=== PATIENT | male | born 1965 | race Caucasian/White ===

== ENCOUNTER → 2016-10-13 | Emergency (ER) | payer MEDICARE ==
[2015-11-17 23:31] VITALS: BMI 21.6
[~2016-10-13] MED LIST: AMBIEN10 MG PO; ATIVAN1 MG PO; CELEXA40 MG PO; GEODON20 MG PO; GEODON40 MG PO; GEODON60 MG PO; HALDOL5 MG GT; HALDOL5 MG PO; METOPROLOL TART50 MG PO; MOBIC7.5 MG PO; NAPROSYN500 MG; NAPROSYN500 MG PO; PROAIR HFA8.5 GM INH; RESTORIL15 MG PO; TEGRETOL200 MG PO; TENORMIN25 MG PO; TENORMIN50 MG; TENORMIN50 MG PO; THERMOTABS 1 GM1 GM PO; VENTOLIN HFA18 GM INH
[2016-10-13 14:03] LABS: APPEARANCE CLEAR (CLEAR); BACTERIA FEW /hpf (NONE SEEN); BILIRUBIN NEGATIVE (NEGATIVE); COLOR STRAW (YELLOW); EPITHELIAL CELLS OCC /hpf (0-5); GLUCOSE 50 mg/dL (NEGATIVE); KETONE NEGATIVE (NEGATIVE); LEUKOCYTE ESTERASE NEGATIVE (NEGATIVE); NITRITE NEGATIVE (NEGATIVE); PROTEIN NEGATIVE (NEGATIVE); RED CELLS - URINE OCC /hpf (0-5); UROBILINOGEN NORMAL (NORMAL); WHITE CELLS - URINE OCC /hpf (0-5)
[2016-10-13 14:06] LABS: UDS - AMPHET NEGATIVE QUAL (NEGATIVE); UDS - BARB NEGATIVE QUAL (NEGATIVE); UDS - BENZO NEGATIVE QUAL (NEGATIVE); UDS - COCAINE NEGATIVE QUAL (NEGATIVE); UDS - METH NEGATIVE QUAL (NEGATIVE); UDS - OPIATE NEGATIVE QUAL (NEGATIVE); UDS - PCP NEGATIVE QUAL (NEGATIVE); UDS - THC NEGATIVE QUAL (NEGATIVE)
[2016-10-13 14:20] LABS: BASOPHILS 0.4 % (0-2); EOSINOPHILS 3.5 % (0-7); HEMATOCRIT 36.8 % (42.0-54.0); HEMOGLOBIN 12.6 g/dL (13.5-17.5); IMMATURE GRANULOCYTES 0.2 % (0-5); MCH 32.2 pg (26.0-34.0); MCHC 34.2 g/dL (31.0-37.0); MCV 94.1 fL (80.0-100.0); MONOCYTES 8.1 % (2-11); NEUTROPHILS 42.8 % (40-80); RBC 3.91 10x6/uL (4.20-6.10); RDW 14.6 % (11.5-14.5); WBC 5.4 10x3/uL (4.8-10.8)
[2016-10-13 14:21] LABS: PLATELET COUNT 193 10x3/uL (130-400)
[2016-10-13 14:38] LABS: ALBUMIN 3.4 g/dL (3.4-5.0); ALKALINE PHOSPHATASE 70 U/L (46-116); ALT (SGPT) 19 U/L (10-68); BILIRUBIN - TOTAL 0.35 mg/dL (0.2-1.3); CALC OSMOLALITY 262 mosm/kg (275-300); CALCIUM 8.4 mg/dL (8.5-10.1); CARBON DIOXIDE 27.6 mmol/L (21.0-32.0); CHLORIDE - SERUM 98 mmol/L (98-107); CREATININE - SERUM 0.9 mg/dL (0.6-1.3); GLUCOSE 86 mg/dL (74-106); POTASSIUM - SERUM 3.7 mmol/L (3.5-5.1); PROTEIN - SERUM 6.8 g/dL (6.4-8.2); SODIUM 132 mmol/L (136-145); UREA NITROGEN 9 mg/dL (7-18); eGFR NON AFRICAN AMERICAN > 90 mL/min (90-120)
[2016-10-13 14:43] LABS: TROPONIN-I < 0.017 ng/mL (0.000-0.060)
== END ==
LOC: D.ER 12:11
PROVIDERS: Emergency Medicine
DX: M54.5 Low back pain (principal); I10 Essential (primary) hypertension; E87.1 Hypo-osmolality and hyponatremia; F10.10 Alcohol abuse, uncomplicated

== ENCOUNTER 2016-12-16 10:07 | Observation (INO) | payer MEDICARE ==
[~2016-12-16] VITALS: Ht 165.1 cm; Wt 55.8 kg
[2016-12-16 10:54] LABS: BASOPHILS 1.1 % (0-2); EOSINOPHILS 0.2 % (0-7); HEMATOCRIT 37.4 % (42.0-54.0); HEMOGLOBIN 13.1 g/dL (13.5-17.5); IMMATURE GRANULOCYTES 0.2 % (0-5); LYMPHOCYTES 23.5 % (15-50); MCV 91.4 fL (80.0-100.0); MEAN PLATELET VOLUME 8.8 fL (7.4-10.4); MONOCYTES 6.3 % (2-11); NEUTROPHILS 68.7 % (40-80); RBC 4.09 10x6/uL (4.20-6.10); RDW 13.2 % (11.5-14.5); WBC 5.4 10x3/uL (4.8-10.8)
[2016-12-16 10:55] LABS: PLATELET COUNT 484 10x3/uL (130-400)
[2016-12-16 11:07] LABS: ALBUMIN 3.4 g/dL (3.4-5.0); ALKALINE PHOSPHATASE 91 U/L (46-116); ALT (SGPT) 49 U/L (10-68); BILIRUBIN - TOTAL 0.27 mg/dL (0.2-1.3); CALCIUM 8.7 mg/dL (8.5-10.1); CARBON DIOXIDE 25.6 mmol/L (21.0-32.0); CHLORIDE - SERUM 92 mmol/L (98-107); CREATININE - SERUM 0.9 mg/dL (0.6-1.3); PROTEIN - SERUM 7.5 g/dL (6.4-8.2); SODIUM 129 mmol/L (136-145); UREA NITROGEN 6 mg/dL (7-18); eGFR NON AFRICAN AMERICAN > 90 mL/min (90-120)
[2016-12-16 11:09] LABS: AMYLASE - SERUM 58 U/L (25-115); CALC OSMOLALITY 258 mosm/kg (275-300); GLUCOSE 136 mg/dL (74-106); LIPASE 513 U/L (73-393)
[2016-12-16 11:23] LABS: APPEARANCE CLEAR (CLEAR); BILIRUBIN NEGATIVE (NEGATIVE); COLOR YELLOW (YELLOW); GLUCOSE NEGATIVE (NEGATIVE); KETONE NEGATIVE (NEGATIVE); LEUKOCYTE ESTERASE NEGATIVE (NEGATIVE); NITRITE NEGATIVE (NEGATIVE); PROTEIN NEGATIVE (NEGATIVE); UROBILINOGEN NORMAL (NORMAL)
--- NOTE | 2016-12-16 13:51 | NUR ---
RECEIVED REPORT FROM JON IN ER AT THIS TIME. JON WILL BRING PATIENT TO UNIT SOON.
--- NOTE | 2016-12-16 14:17 | NUR ---
PATIENT ARRIVED TO ROOM 2103 VIA WHEELCHAIR FROM ED AT THIS TIME. AMBULATORY. ABLE TO AMBULATE FROM CHAIR TO BED WITHOUT DIFFICULTY. PATIENT VERBAL AT THIS TIME. CALL LIGHT PLACED WITHIN REACH. PATIENT IS INTOXICATED. 22 GAUGE TO RIGHT WRIST. IV FLUIDS INFUSING ORDERED AT THIS TIME. NO DISTRESS.
[2016-12-16 16:46] VITALS: BP 154/94; BMI 18.6
--- NOTE | 2016-12-16 18:31 | NUR ---
RESTING IN BED. AT BEDSIDE FOR EXAMINATION. THIS FOOD SERVICE TEAM MEMBER ASSISTED WITH EXAMINATION. IV FLUIDS INFUSING ORDERED. NO DISTRESS. CALL LIGHT WITHIN REACH.
--- NOTE | 2016-12-16 19:49 | NUR ---
PT RESTING IN BED. NS INFUSING TO RIGHT WRIST AT 250. PT DENIES ANY NEEDS. NO S/S OF DISTRESS. WILL CONTINUE TO MONITOR
[2016-12-16 20:00] VITALS: BP 127/86
--- NOTE | 2016-12-16 21:32 | NUR ---
1900 MEDS NOT GIVEN BECAUSE THEY ARE NOT VERIFIED BY PHARMACY. CHANDRIKA NOTIFIED. PT IN ROOM SLEEPING. RESPIRATIONS EVEN AND UNLABORED. NO S/S OF DISTRESS. WILL CONTINUE TO MONITOR
--- NOTE | 2016-12-17 00:59 | NUR ---
PT IN BED WATCHING TV. DENIES ANY NEEDS AT THIS TIME. NO S/S OF DISTRESS. WILL CONTINUE TO MONITOR
[2016-12-17 04:00] VITALS: BP 118/73
--- NOTE | 2016-12-17 05:53 | NUR ---
PT ASLEEP. RESPIRATIONS EVEN AND UNLABORED. NO S/S OF DISTRESS WILL CONTINUE TO MONITOR
[2016-12-17 06:45] LABS: BASOPHILS 0.7 % (0-2); EOSINOPHILS 1.6 % (0-7); HEMATOCRIT 36.1 % (42.0-54.0); HEMOGLOBIN 12.2 g/dL (13.5-17.5); IMMATURE GRANULOCYTES 0.2 % (0-5); LYMPHOCYTES 28.7 % (15-50); MCH 31.9 pg (26.0-34.0); MCHC 33.8 g/dL (31.0-37.0); MEAN PLATELET VOLUME 9.6 fL (7.4-10.4); MONOCYTES 6.8 % (2-11); RBC 3.82 10x6/uL (4.20-6.10); RDW 13.9 % (11.5-14.5); WBC 5.5 10x3/uL (4.8-10.8)
[2016-12-17 06:46] LABS: MCV 94.5 fL (80.0-100.0); PLATELET COUNT 260 10x3/uL (130-400)
[2016-12-17 06:56] LABS: ALBUMIN 2.6 g/dL (3.4-5.0); ALKALINE PHOSPHATASE 70 U/L (46-116); ALT (SGPT) 40 U/L (10-68); AMYLASE - SERUM 59 U/L (25-115); BILIRUBIN - TOTAL 0.39 mg/dL (0.2-1.3); CALCIUM 7.9 mg/dL (8.5-10.1); CARBON DIOXIDE 25.5 mmol/L (21.0-32.0); CHLORIDE - SERUM 103 mmol/L (98-107); CREATININE - SERUM 0.7 mg/dL (0.6-1.3); LIPASE 579 U/L (73-393); POTASSIUM - SERUM 4.5 mmol/L (3.5-5.1); SODIUM 137 mmol/L (136-145); eGFR NON AFRICAN AMERICAN > 90 mL/min (90-120)
[2016-12-17 07:00] LABS: CALC OSMOLALITY 268 mosm/kg (275-300); GLUCOSE 62 mg/dL (74-106); UREA NITROGEN 3 mg/dL (7-18)
--- NOTE | 2016-12-17 07:11 | NUR ---
RECEIVED REPORT. PATIENT SITTING UP IN BED. DENIES ANY FEELINGS OF BEING JITTERY, ETC FROM LAB GLUCOSE OF 62. PATIENT GIVEN APPLE JUICE AND SOME PUDDING AT THIS TIME. IV FLUIDS INFUSING ORDERED. CALL LIGHT WITHIN REACH. NO DISTRESS.
[2016-12-17 08:00] VITALS: BP 145/70
[2016-12-17 12:00] VITALS: BP 146/63
--- NOTE | 2016-12-17 12:57 | NUR ---
RESTING IN BED WITH ATTENTION TOWARD TELEVISION. IV FLUIDS INFUSING ORDERED. CALL LIGHT WITHIN REACH. PATIENT QUESTIONING WHEN HE WILL GET TO GO HOME. INFORMED PATIENT THIS HYDRAULIC DREDGE OPERATOR DOES NOT HAVE THE ANSWER TO THAT QUESTION AND WE WILL SEE WHAT SAYS WHEN SHE COMES TODAY FOR ROUNDS. NO DISTRESS.
--- NOTE | 2016-12-17 14:25 | NUR ---
SODA AND PUDDING PROVIDED UPON REQUEST AT THIS TIME. RESTING IN BED. NO DISTRESS.
[2016-12-17 16:00] VITALS: BP 126/83
--- NOTE | 2016-12-17 19:20 | NUR ---
PT SLEEPING. RESPIRATIONS EVEN AND UNLABORED, NO S/S OF DISTRESS, WILL CONTINUE TO MONITOR
[2016-12-17 22:41] VITALS: BP 135/73
--- NOTE | 2016-12-18 02:24 | NUR ---
PT C/O FLUIDS INFUSING 250ML/HR DECREASED TO 100ML/HR. IV PUMP WAKING HIM UP BECAUSE FLUIDS INFUSE SO FAST. NO OTHER NEEDS. NO S/S OF DISTRESS. WILL CONTINUE TO MONITOR
[2016-12-18 02:51] VITALS: BP 140/85
--- NOTE | 2016-12-18 04:59 | NUR ---
PT ASLEEP IN BED. RESPIRATIONS EVEN AND UNLABORED. NO S/S OF DISTRESS WILL CONTINUE TO MONITOR
[2016-12-18 05:27] VITALS: BP 147/82
[2016-12-18 05:52] LABS: ALBUMIN 2.7 g/dL (3.4-5.0); ALKALINE PHOSPHATASE 71 U/L (46-116); ALT (SGPT) 39 U/L (10-68); CALCIUM 8.2 mg/dL (8.5-10.1); CARBON DIOXIDE 29.4 mmol/L (21.0-32.0); CHLORIDE - SERUM 98 mmol/L (98-107); CREATININE - SERUM 0.6 mg/dL (0.6-1.3); GLUCOSE 76 mg/dL (74-106); LIPASE 579 U/L (73-393); PROTEIN - SERUM 6.2 g/dL (6.4-8.2); SODIUM 134 mmol/L (136-145); eGFR NON AFRICAN AMERICAN > 90 mL/min (90-120)
[2016-12-18 05:59] LABS: CALC OSMOLALITY 262 mosm/kg (275-300); POTASSIUM - SERUM 3.6 mmol/L (3.5-5.1); UREA NITROGEN 2 mg/dL (7-18)
--- NOTE | 2016-12-18 06:54 | NUR ---
PT C/O BEING NPO. ABD SCAN DONE THIS MORNING. WAITING ON RESULTS. NO S/S OF DISTRESS. PT RESTING IN BED. WILL CONTINUE TO MONITOR
[2016-12-18 08:00] VITALS: BP 142/81
--- NOTE | 2016-12-18 10:02 | NUR ---
REFUSED [facility] - UP AD VELASQUEZ
--- NOTE | 2016-12-18 10:47 | NUR ---
UP IN BED WATCHING TV - SOFT SNACKS GIVEN - DENIES ANY OTHER NEEDS
[2016-12-18 10:48] VITALS: Ht 165.1 cm; Wt 55.8 kg
[2016-12-18 12:00] VITALS: BP 131/66
--- NOTE | 2016-12-18 13:07 | NUR ---
RESTS IN BED WITH CALL LIGHT IN REACH. IV PATENT. WILL MONITOR NEEDS.
--- NOTE | 2016-12-18 14:13 | NUR ---
DR MCCONNELL APPROACHED WANTING TO TALK ABOUT PATIENT. SHE IS WANTING TO WORK ON DISCHARGE, BUT PATIENT NEEDS TO FOLLOW UP. SHE SAID THAT HE MISSED HIS POST COLECTOMY FOLLOW UP AND HE HAS NOT BEEN TAKING HIS MEDICAITONS. HE SAID IT WAS SOMETHING TO DO WITH THE INSURANCE. SHE WANTED ASSISTANCE WITH FINDING A PCP FOR HIM. PATIENT USE TO SEE DR BETTS. CALL [facility] PLACED TO [facility] TO SEE IF PATIENT HAD BEEN FIRED OR IF HE WAS ASSIGNED TO ANOTHER PHYSICIAN AND JUST NOT KEEPING APPOINTMENTS. THEY STATED HE WAS NOT FIRED, BUT HE HAS NOT HAD AN APPOINTMENT SINCE 2011 AND SINCE IT HAS BEEN OVER 3 YEARS, HE IS NO LONGER THEIR PATIENT AND THEY ARE NOT ACCEPTING NEW PATIENTS. CALLED AND SPOKE WITH SOFIA AT [facility] ([phone]), PER HIM, THE PATIENT HAS NOT HAD ANY MEDICATIONS FILLED WITH THEM SINCE 2016. AT THAT TIME, DR CRUZ PRESCRIBED NAPROXEN, TEGRETOL, AND ATENOLOL. DR MCCONNELL HAS REQUESTED THAT WE FOLLOW THE PATIENT AFTER DISCHARGE TO MAKE SURE HE KEEPS HIS APPOINTMENT (EXPLAINED THAT WE COULDN'T DO THAT), AND MAKE SURE HE HAS A PCP AND CAN GET HIS MEDICATIONS. CASSIA MCKENNA TOOK PATIENT THE INFORMATION FOR [facility] WHILE THIS CM WAS ON THE PHONE WITH THE PHARMACY. WILL FOLLOW.
[2016-12-18] MEDS ORDERED: NORVASC2.5 MG PO (15:24)
[2016-12-18] MEDS ORDERED: THIAMINE HCL50 MG PO ×2 (15:45→15:47)
[2016-12-18 16:00] VITALS: BP 135/82
--- NOTE | 2016-12-18 16:30 | NUR ---
D/C HOME PER WALKING
--- NOTE | 2016-12-18 16:50 | NUR ---
Patient Name: CONNIE LYON Admission Status: ER Accout number: [id number] Admission Date: 12-18-2016 : 1965 Admission Diagnosis: Attending: SUSANNE Current LOS: 1 Anticipated DC Date: 12-18-2016 Planned Disposition: Home Primary Insurance: MEDICARE A & B Discharge Planning Comments: * Is the patient Alert and Oriented? Yes 0 * How many steps to enter\exit or inside your home? 3-4 0 * PCP NONE 0 * Pharmacy [facility] 0 * Preadmission Environment Home Alone 0 * ADLs Independent 0 * Equipment None 0 * Other Equipment NO MEDICAL EQUIPMENT PROVIDER PREFERENCE 0 * List name and contact numbers for known caregivers / representatives who currently or will assist patient after discharge: PT REPORTS THERE IS ABSOLUTELY NO ONE TO CALL ON HIS BEHALF. 0 * Community resources currently utilized None 0 * Please name any agencies selected above. NONE 0 * Additional services required to return to the preadmission environment? No 0 * Can the patient safely return to the preadmission environment? Yes 0 * Has this patient been hospitalized within the prior 30 days at any hospital? Yes 0 CM RECEIVED ORDER TO FOLLOW UP WITH PT FOR DISCHARGE. CM MET WITH PT IN ROOM TO DISCUSS DISCHARGE PLANNING AND NEEDS. PT REPORTS LIVING AT HOME INDEPENDENTLY AND ALONE. PT HAS NO MEDICAL EQUIPMENT AND NO OUTSIDE SERVICES ASSISTING IN THE HOME. CM DISCUSSED AVAILABILITY OF HOME HEALTH, REHAB SERVICES AND MEDICAL EQUIPMENT. PT DENIES DISCHARGE NEEDS, REPORTS PLAN TO WALK HOME FOR DISCHARGE TODAY. IMPORTANT MESSAGE FROM MEDICARE PROVIDED AND EXPLAINED. PT REPORT DRINKING 4-5 32 OUNCE BEERS EACH DAY; PT DENIES NEED FOR REHAB OR ADDICTION SERVICES REPORTING HE WALKED OUT OF [facility] LAST YEAR AND SPENT 30 DAYS IN [facility] SO HE DID NOT HAVE TO GO. PT HAS NOT INTENTION TO STOP DRINKING BEER. PT USES SMOKELESS TOBACCO (DIP) AND REPORTS HE HAS NO PLAN TO STOP THAT EITHER. PT DENIES HAVING ANY ONE TO NOTIFY IN CASE OF EMERGENCY. CM PROVIDED BUS PASS TO GET HOME, PROVIDED AND DISCUSSED [facility] INFORMATION AND HOW TO GET APPOINTMENT FOR POSSIBLE PRIMARY CARE DOCTOR CONSIDERATION. PT REPORTED UNDERSTANDING, THANKED CM. High Speed Operator: Devin Sumner
== END 2016-12-18 17:58 | disposition home or self-care (01) ==
LOC: D.ER 10:07 → OBSVTIME 13:27 → D.M2 13:27
PROVIDERS: Family Medicine; ADMIT Family Medicine
DX: K85.20 Alcohol induced acute pancreatitis without necrosis or infection (principal); K86.0 Alcohol-induced chronic pancreatitis; C18.9 Malignant neoplasm of colon, unspecified; C77.2 Secondary and unspecified malignant neoplasm of intra-abdominal lymph nodes; E87.1 Hypo-osmolality and hyponatremia; F10.129 Alcohol abuse with intoxication, unspecified; I10 Essential (primary) hypertension; D47.3 Essential (hemorrhagic) thrombocythemia; F20.9 Schizophrenia, unspecified; K64.9 Unspecified hemorrhoids; K59.00 Constipation, unspecified; Y90.8 Blood alcohol level of 240 mg/100 ml or more; D64.9 Anemia, unspecified; E86.0 Dehydration; N13.30 Unspecified hydronephrosis; R18.8 Other ascites; Z91.19 Patient's noncompliance with other medical treatment and regimen; Z86.73 Personal history of transient ischemic attack (TIA), and cerebral infarction without residual deficits; Z72.0 Tobacco use

== ENCOUNTER 2017-02-09 11:43 | Emergency (ER) | payer MEDICARE ==
[2016-12-18 10:48] VITALS: BMI 20.4
[~2017-02-09 11:43] MED LIST changes: +NORVASC2.5 MG PO; +THIAMINE HCL50 MG PO
== END 2017-02-09 14:41 | disposition home or self-care (01) ==
LOC: D.ER 11:43
DX: C78.5 Secondary malignant neoplasm of large intestine and rectum (principal); R59.0 Localized enlarged lymph nodes; F10.21 Alcohol dependence, in remission; I10 Essential (primary) hypertension

== ENCOUNTER 2017-03-24 11:13 | Emergency (ER) | payer MEDICARE ==
[2016-12-18 10:48] VITALS: BMI 20.4
[2017-03-24 11:57] LABS: BASOPHILS 3.1 % (0-2); EOSINOPHILS 0.7 % (0-7); HEMATOCRIT 36.4 % (42.0-54.0); HEMOGLOBIN 12.6 g/dL (13.5-17.5); LYMPHOCYTES 34.6 % (15-50); MCH 31.3 pg (26.0-34.0); MCHC 34.6 g/dL (31.0-37.0); MCV 90.3 fL (80.0-100.0); MEAN PLATELET VOLUME 8.9 fL (7.4-10.4); MONOCYTES 10.2 % (2-11); NEUTROPHILS 51.4 % (40-80); PLATELET COUNT 246 10x3/uL (130-400); RBC 4.03 10x6/uL (4.20-6.10); RDW 14.5 % (11.5-14.5); WBC 4.2 10x3/uL (4.8-10.8)
[2017-03-24 12:07] LABS: APPEARANCE CLEAR (CLEAR); BILIRUBIN NEGATIVE (NEGATIVE); COLOR STRAW (YELLOW); GLUCOSE NEGATIVE (NEGATIVE); KETONE NEGATIVE (NEGATIVE); NITRITE NEGATIVE (NEGATIVE); PROTEIN NEGATIVE (NEGATIVE); SPECIFIC GRAVITY 1.005 (1.005-1.020); UROBILINOGEN NORMAL (NORMAL)
[2017-03-24 12:11] LABS: ALBUMIN 3.2 g/dL (3.4-5.0); ALKALINE PHOSPHATASE 147 U/L (46-116); ALT (SGPT) 97 U/L (10-68); BILIRUBIN - TOTAL 0.38 mg/dL (0.2-1.3); CALC OSMOLALITY 255 mosm/kg (275-300); CALCIUM 8.3 mg/dL (8.5-10.1); CARBON DIOXIDE 28.2 mmol/L (21.0-32.0); CHLORIDE - SERUM 92 mmol/L (98-107); CREATININE - SERUM 0.9 mg/dL (0.6-1.3); POTASSIUM - SERUM 4.3 mmol/L (3.5-5.1); PROTEIN - SERUM 7.3 g/dL (6.4-8.2); SODIUM 128 mmol/L (136-145); UREA NITROGEN 5 mg/dL (7-18); eGFR NON AFRICAN AMERICAN > 90 mL/min (90-120)
[2017-03-24 12:12] LABS: GLUCOSE 128 mg/dL (74-106)
[2017-03-24 12:12] LABS: UDS - AMPHET NEGATIVE QUAL (NEGATIVE); UDS - BARB NEGATIVE QUAL (NEGATIVE); UDS - BENZO NEGATIVE QUAL (NEGATIVE); UDS - COCAINE NEGATIVE QUAL (NEGATIVE); UDS - OPIATE NEGATIVE QUAL (NEGATIVE); UDS - PCP NEGATIVE QUAL (NEGATIVE); UDS - THC NEGATIVE QUAL (NEGATIVE)
== END 2017-03-24 22:00 | disposition home or self-care (01) ==
LOC: D.ER 11:13
PROVIDERS: Nurse Practitioner Family
DX: F10.129 Alcohol abuse with intoxication, unspecified (principal); F10.10 Alcohol abuse, uncomplicated; T50.905A Adverse effect of unspecified drugs, medicaments and biological substances, initial encounter; Y92.89 Other specified places as the place of occurrence of the external cause; W19.XXXA Unspecified fall, initial encounter; Y93.89 Activity, other specified; Y92.410 Unspecified street and highway as the place of occurrence of the external cause; Z85.038 Personal history of other malignant neoplasm of large intestine; F17.200 Nicotine dependence, unspecified, uncomplicated

== ENCOUNTER 2017-03-28 19:06 | Emergency (ER) | payer MEDICARE ==
[2016-12-18 10:48] VITALS: BMI 20.4
== END 2017-03-28 19:45 | disposition home or self-care (01) ==
LOC: D.ER 19:06
DX: S80.212A Abrasion, left knee, initial encounter (principal); X58.XXXA Exposure to other specified factors, initial encounter; Y93.89 Activity, other specified; Y92.029 Unspecified place in mobile home as the place of occurrence of the external cause; I10 Essential (primary) hypertension; F17.200 Nicotine dependence, unspecified, uncomplicated

== ENCOUNTER 2017-03-31 16:23 | Emergency (ER) | payer MEDICARE ==
[2016-12-18 10:48] VITALS: BMI 20.4
[2017-03-31 17:10] LABS: APPEARANCE CLEAR (CLEAR); BILIRUBIN NEGATIVE (NEGATIVE); COLOR YELLOW (YELLOW); GLUCOSE NEGATIVE (NEGATIVE); KETONE NEGATIVE (NEGATIVE); NITRITE NEGATIVE (NEGATIVE); PROTEIN NEGATIVE (NEGATIVE); UROBILINOGEN NORMAL (NORMAL)
== END 2017-03-31 18:31 | disposition home or self-care (01) ==
LOC: D.ER 16:23
PROVIDERS: Emergency Medicine
DX: R33.9 Retention of urine, unspecified (principal); I10 Essential (primary) hypertension; F17.200 Nicotine dependence, unspecified, uncomplicated

== ENCOUNTER 2017-04-11 18:02 | Emergency (ER) | payer MEDICARE ==
[2016-12-18 10:48] VITALS: BMI 20.4
== END 2017-04-11 19:50 | disposition home or self-care (01) ==
LOC: D.ER 18:02
DX: M25.561 Pain in right knee (principal); M25.461 Effusion, right knee; F17.200 Nicotine dependence, unspecified, uncomplicated

== ENCOUNTER 2017-05-01 16:44 | Emergency (ER) | payer MEDICARE ==
[2016-12-18 10:48] VITALS: BMI 20.4
== END 2017-05-01 19:51 | disposition home or self-care (01) ==
LOC: D.ER 16:44
DX: I10 Essential (primary) hypertension (principal); M25.561 Pain in right knee

== ENCOUNTER 2017-05-14 14:25 | Emergency (ER) | payer MEDICARE ==
[2016-12-18 10:48] VITALS: BMI 20.4
== END 2017-05-14 17:55 | disposition home or self-care (01) ==
LOC: D.ER 14:25
DX: M25.562 Pain in left knee (principal); M25.561 Pain in right knee; Z85.038 Personal history of other malignant neoplasm of large intestine; I10 Essential (primary) hypertension

== ENCOUNTER 2017-05-16 13:31 | Emergency (ER) | payer MEDICARE ==
[2016-12-18 10:48] VITALS: BMI 20.4
== END 2017-05-16 17:04 | disposition home or self-care (01) ==
LOC: D.ER 13:31
DX: Z76.5 Malingerer [conscious simulation] (principal); Z76.0 Encounter for issue of repeat prescription

== ENCOUNTER 2017-06-14 14:13 | Emergency (ER) | payer MEDICARE ==
[2016-12-18 10:48] VITALS: BMI 20.4
== END 2017-06-14 16:15 | disposition home or self-care (01) ==
LOC: D.ER 14:13
DX: M25.511 Pain in right shoulder (principal); Z76.5 Malingerer [conscious simulation]; M25.552 Pain in left hip; F17.200 Nicotine dependence, unspecified, uncomplicated

== ENCOUNTER 2017-07-12 14:27 | Emergency (ER) | payer MEDICARE ==
[2016-12-18 10:48] VITALS: BMI 20.4
== END 2017-07-12 16:52 | disposition home or self-care (01) ==
LOC: D.ER 14:27
DX: M25.561 Pain in right knee (principal); M17.11 Unilateral primary osteoarthritis, right knee; F17.200 Nicotine dependence, unspecified, uncomplicated

== ENCOUNTER 2017-07-26 15:55 | Emergency (ER) | payer MEDICARE ==
[2016-12-18 10:48] VITALS: BMI 20.4
[2017-07-26 17:02] LABS: UDS - AMPHET NEGATIVE QUAL (NEGATIVE); UDS - BARB NEGATIVE QUAL (NEGATIVE); UDS - BENZO POSITIVE QUAL (NEGATIVE); UDS - COCAINE NEGATIVE QUAL (NEGATIVE); UDS - OPIATE NEGATIVE QUAL (NEGATIVE); UDS - PCP NEGATIVE QUAL (NEGATIVE); UDS - THC NEGATIVE QUAL (NEGATIVE)
[2017-07-26 17:09] LABS: BASOPHILS 0.4 % (0-2); EOSINOPHILS 1.7 % (0-7); HEMATOCRIT 34.8 % (42.0-54.0); LYMPHOCYTES 33.3 % (15-50); MCH 32.5 pg (26.0-34.0); MCHC 34.5 g/dL (31.0-37.0); MCV 94.3 fL (80.0-100.0); MEAN PLATELET VOLUME 9.1 fL (7.4-10.4); MONOCYTES 10.3 % (2-11); NEUTROPHILS 54.3 % (40-80); PLATELET COUNT 270 10x3/uL (130-400); RBC 3.69 10x6/uL (4.20-6.10); RDW 13.4 % (11.5-14.5); WBC 5.3 10x3/uL (4.8-10.8)
[2017-07-26 17:25] LABS: APPEARANCE CLEAR (CLEAR); BILIRUBIN NEGATIVE (NEGATIVE); COLOR YELLOW (YELLOW); GLUCOSE NEGATIVE (NEGATIVE); KETONE NEGATIVE (NEGATIVE); NITRITE NEGATIVE (NEGATIVE); PROTEIN NEGATIVE (NEGATIVE); SPECIFIC GRAVITY 1.015 (1.005-1.020); UROBILINOGEN NORMAL (NORMAL)
[2017-07-26 17:31] LABS: ALBUMIN 3.5 g/dL (3.4-5.0); BILIRUBIN - TOTAL 0.23 mg/dL (0.2-1.3); CALCIUM 8.3 mg/dL (8.5-10.1); CARBON DIOXIDE 25.8 mmol/L (21.0-32.0); CREATININE - SERUM 1.1 mg/dL (0.6-1.3); POTASSIUM - SERUM 3.8 mmol/L (3.5-5.1); PROTEIN - SERUM 7.2 g/dL (6.4-8.2)
== END 2017-07-27 02:10 | disposition home or self-care (01) ==
LOC: D.ER 15:55
PROVIDERS: Emergency Medicine
DX: F10.10 Alcohol abuse, uncomplicated (principal); F10.129 Alcohol abuse with intoxication, unspecified; F17.200 Nicotine dependence, unspecified, uncomplicated; I10 Essential (primary) hypertension; Z86.59 Personal history of other mental and behavioral disorders

== ENCOUNTER 2017-08-13 15:20 | Emergency (ER) | payer MEDICARE ==
[2016-12-18 10:48] VITALS: BMI 20.4
[2017-08-13 15:46] LABS: UDS - AMPHET NEGATIVE QUAL (NEGATIVE); UDS - BARB NEGATIVE QUAL (NEGATIVE); UDS - BENZO NEGATIVE QUAL (NEGATIVE); UDS - COCAINE NEGATIVE QUAL (NEGATIVE); UDS - OPIATE NEGATIVE QUAL (NEGATIVE); UDS - PCP NEGATIVE QUAL (NEGATIVE); UDS - THC NEGATIVE QUAL (NEGATIVE)
[2017-08-13 15:49] LABS: BASOPHILS 0.1 % (0-2); EOSINOPHILS 0.6 % (0-7); HEMATOCRIT 32.5 % (42.0-54.0); HEMOGLOBIN 11.6 g/dL (13.5-17.5); IMMATURE GRANULOCYTES 0.3 % (0-5); LYMPHOCYTES 19.8 % (15-50); MCH 32.1 pg (26.0-34.0); MCHC 35.7 g/dL (31.0-37.0); MEAN PLATELET VOLUME 9.4 fL (7.4-10.4); MONOCYTES 19.1 % (2-11); NEUTROPHILS 60.1 % (40-80); RBC 3.61 10x6/uL (4.20-6.10); RDW 13.1 % (11.5-14.5); WBC 7.2 10x3/uL (4.8-10.8)
[2017-08-13 15:56] LABS: APPEARANCE CLEAR (CLEAR); BILIRUBIN NEGATIVE (NEGATIVE); COLOR YELLOW (YELLOW); GLUCOSE NEGATIVE (NEGATIVE); KETONE NEGATIVE (NEGATIVE); NITRITE NEGATIVE (NEGATIVE); PROTEIN NEGATIVE (NEGATIVE); UROBILINOGEN NORMAL (NORMAL)
[2017-08-13 15:57] LABS: PLATELET COUNT 164 10x3/uL (130-400)
[2017-08-13 16:03] LABS: ALKALINE PHOSPHATASE 94 U/L (46-116); ALT (SGPT) 43 U/L (10-68); BILIRUBIN - TOTAL 0.24 mg/dL (0.2-1.3); CALCIUM 8.5 mg/dL (8.5-10.1); CARBON DIOXIDE 25.2 mmol/L (21.0-32.0); CREATININE - SERUM 0.7 mg/dL (0.6-1.3); GLUCOSE 86 mg/dL (74-106); POTASSIUM - SERUM 3.8 mmol/L (3.5-5.1); PROTEIN - SERUM 7.1 g/dL (6.4-8.2); UREA NITROGEN 5 mg/dL (7-18); eGFR NON AFRICAN AMERICAN > 90 mL/min (90-120)
[2017-08-13 16:08] LABS: CALC OSMOLALITY 230 mosm/kg (275-300); CHLORIDE - SERUM 80 mmol/L (98-107); SODIUM 116 mmol/L (136-145)
[2017-08-13 21:43] LABS: ALBUMIN 2.7 g/dL (3.4-5.0); ALKALINE PHOSPHATASE 87 U/L (46-116); ALT (SGPT) 37 U/L (10-68); BILIRUBIN - TOTAL 0.21 mg/dL (0.2-1.3); CALCIUM 8.1 mg/dL (8.5-10.1); CARBON DIOXIDE 24.9 mmol/L (21.0-32.0); CHLORIDE - SERUM 86 mmol/L (98-107); POTASSIUM - SERUM 3.3 mmol/L (3.5-5.1); PROTEIN - SERUM 6.3 g/dL (6.4-8.2); SODIUM 121 mmol/L (136-145); UREA NITROGEN 4 mg/dL (7-18)
[2017-08-13 21:46] LABS: CALC OSMOLALITY 242 mosm/kg (275-300); CREATININE - SERUM 0.9 mg/dL (0.6-1.3); GLUCOSE 139 mg/dL (74-106); eGFR NON AFRICAN AMERICAN > 90 mL/min (90-120)
[2017-08-14 02:54] LABS: ALBUMIN 2.5 g/dL (3.4-5.0); ALKALINE PHOSPHATASE 76 U/L (46-116); ALT (SGPT) 38 U/L (10-68); CALCIUM 7.8 mg/dL (8.5-10.1); CARBON DIOXIDE 26.1 mmol/L (21.0-32.0); CHLORIDE - SERUM 94 mmol/L (98-107); GLUCOSE 92 mg/dL (74-106); PROTEIN - SERUM 5.9 g/dL (6.4-8.2); SODIUM 127 mmol/L (136-145); eGFR NON AFRICAN AMERICAN 83 mL/min (90-120)
[2017-08-14 02:58] LABS: CALC OSMOLALITY 252 mosm/kg (275-300); POTASSIUM - SERUM 4.5 mmol/L (3.5-5.1); UREA NITROGEN 6 mg/dL (7-18)
== END 2017-08-14 07:36 | disposition home or self-care (01) ==
LOC: D.ER 15:20
PROVIDERS: Emergency Medicine; Nurse Practitioner Family
DX: F10.10 Alcohol abuse, uncomplicated (principal); F10.129 Alcohol abuse with intoxication, unspecified; R45.850 Homicidal ideations

== ENCOUNTER 2017-08-23 15:28 | Emergency (ER) | payer MEDICARE ==
[2016-12-18 10:48] VITALS: BMI 20.4
[2017-08-23 16:50] LABS: BASOPHILS 0.7 % (0-2); EOSINOPHILS 1.4 % (0-7); HEMATOCRIT 35.9 % (42.0-54.0); HEMOGLOBIN 12.7 g/dL (13.5-17.5); IMMATURE GRANULOCYTES 0.2 % (0-5); LYMPHOCYTES 37.4 % (15-50); MCH 32.7 pg (26.0-34.0); MCHC 35.4 g/dL (31.0-37.0); MCV 92.5 fL (80.0-100.0); MEAN PLATELET VOLUME 8.7 fL (7.4-10.4); MONOCYTES 11.4 % (2-11); NEUTROPHILS 48.9 % (40-80); RBC 3.88 10x6/uL (4.20-6.10); RDW 13.3 % (11.5-14.5); WBC 5.7 10x3/uL (4.8-10.8)
[2017-08-23 16:53] LABS: PLATELET COUNT 416 10x3/uL (130-400)
[2017-08-23 16:56] LABS: ALBUMIN 3.9 g/dL (3.4-5.0); ALKALINE PHOSPHATASE 96 U/L (46-116); ALT (SGPT) 35 U/L (10-68); BILIRUBIN - TOTAL 0.28 mg/dL (0.2-1.3); CALC OSMOLALITY 244 mosm/kg (275-300); CALCIUM 9.1 mg/dL (8.5-10.1); CHLORIDE - SERUM 87 mmol/L (98-107); CREATININE - SERUM 0.9 mg/dL (0.6-1.3); GLUCOSE 85 mg/dL (74-106); POTASSIUM - SERUM 4.5 mmol/L (3.5-5.1); PROTEIN - SERUM 8.3 g/dL (6.4-8.2); SODIUM 121 mmol/L (136-145); UREA NITROGEN 18 mg/dL (7-18); eGFR NON AFRICAN AMERICAN > 90 mL/min (90-120)
== END 2017-08-23 23:27 | disposition home or self-care (01) ==
LOC: D.ER 15:28
PROVIDERS: Family Medicine
DX: E86.0 Dehydration (principal); F10.129 Alcohol abuse with intoxication, unspecified

== ENCOUNTER 2017-08-24 15:29 | Emergency (ER) | payer MEDICARE ==
[2016-12-18 10:48] VITALS: BMI 20.4
[2017-08-24 18:29] LABS: BASOPHILS 1.4 % (0-2); HEMATOCRIT 34.5 % (42.0-54.0); HEMOGLOBIN 12.1 g/dL (13.5-17.5); IMMATURE GRANULOCYTES 0.2 % (0-5); LYMPHOCYTES 43.3 % (15-50); MCH 32.1 pg (26.0-34.0); MCHC 35.1 g/dL (31.0-37.0); MCV 91.5 fL (80.0-100.0); MEAN PLATELET VOLUME 8.6 fL (7.4-10.4); MONOCYTES 11.6 % (2-11); NEUTROPHILS 41.5 % (40-80); PLATELET COUNT 356 10x3/uL (130-400); RBC 3.77 10x6/uL (4.20-6.10); RDW 13.1 % (11.5-14.5); WBC 5.6 10x3/uL (4.8-10.8)
[2017-08-24 18:53] LABS: APPEARANCE CLEAR (CLEAR); BILIRUBIN NEGATIVE (NEGATIVE); COLOR YELLOW (YELLOW); GLUCOSE NEGATIVE (NEGATIVE); KETONE NEGATIVE (NEGATIVE); NITRITE NEGATIVE (NEGATIVE); PH 5.5 (5.0-6.0); PROTEIN NEGATIVE (NEGATIVE); SPECIFIC GRAVITY 1.005 (1.005-1.020); UROBILINOGEN NORMAL (NORMAL)
[2017-08-24 19:04] LABS: UDS - AMPHET NEGATIVE QUAL (NEGATIVE); UDS - BARB NEGATIVE QUAL (NEGATIVE); UDS - BENZO NEGATIVE QUAL (NEGATIVE); UDS - COCAINE NEGATIVE QUAL (NEGATIVE); UDS - OPIATE NEGATIVE QUAL (NEGATIVE); UDS - PCP NEGATIVE QUAL (NEGATIVE); UDS - THC NEGATIVE QUAL (NEGATIVE)
[2017-08-24 19:05] LABS: ALBUMIN 3.7 g/dL (3.4-5.0); ALKALINE PHOSPHATASE 87 U/L (46-116); ALT (SGPT) 34 U/L (10-68); BILIRUBIN - TOTAL 0.48 mg/dL (0.2-1.3); CALC OSMOLALITY 245 mosm/kg (275-300); CALCIUM 9.1 mg/dL (8.5-10.1); CARBON DIOXIDE 26.2 mmol/L (21.0-32.0); CHLORIDE - SERUM 90 mmol/L (98-107); CREATININE - SERUM 0.9 mg/dL (0.6-1.3); GLUCOSE 80 mg/dL (74-106); POTASSIUM - SERUM 4.7 mmol/L (3.5-5.1); PROTEIN - SERUM 7.7 g/dL (6.4-8.2); SODIUM 122 mmol/L (136-145); UREA NITROGEN 15 mg/dL (7-18); eGFR NON AFRICAN AMERICAN > 90 mL/min (90-120)
== END 2017-08-25 07:28 | disposition short-term general hospital (02) ==
LOC: D.ER 15:29
PROVIDERS: Nurse Practitioner Family
DX: R45.851 Suicidal ideations (principal); R42 Dizziness and giddiness; F10.10 Alcohol abuse, uncomplicated; F17.200 Nicotine dependence, unspecified, uncomplicated

== ENCOUNTER 2017-11-06 11:14 | Emergency (ER) | payer MEDICARE ==
[~2017-11-06] VITALS: Ht 165.1 cm; Wt 59.1 kg
[2017-11-06 11:16] VITALS: Ht 165.1 cm; Wt 59.1 kg
[2017-11-06] MEDS ORDERED: HYDROCODONE-APA1 TAB (11:20)
[2017-11-06] MEDS ORDERED: SEROQUEL25 MG (11:20)
[2017-11-06 11:43] LABS: BASOPHILS 0.5 % (0-2); EOSINOPHILS 0.3 % (0-7); HEMATOCRIT 33.9 % (42.0-54.0); LYMPHOCYTES 29.3 % (15-50); MCH 32.5 pg (26.0-34.0); MCHC 35.4 g/dL (31.0-37.0); MCV 91.9 fL (80.0-100.0); MEAN PLATELET VOLUME 8.7 fL (7.4-10.4); MONOCYTES 8.2 % (2-11); NEUTROPHILS 61.7 % (40-80); PLATELET COUNT 208 10x3/uL (130-400); RBC 3.69 10x6/uL (4.20-6.10); RDW 14.4 % (11.5-14.5); WBC 3.9 10x3/uL (4.8-10.8)
[2017-11-06 12:11] LABS: ALBUMIN 3.6 g/dL (3.4-5.0); ALKALINE PHOSPHATASE 74 U/L (46-116); ALT (SGPT) 31 U/L (10-68); BILIRUBIN - TOTAL 0.69 mg/dL (0.2-1.3); CALC OSMOLALITY 251 mosm/kg (275-300); CALCIUM 8.5 mg/dL (8.5-10.1); CARBON DIOXIDE 26.3 mmol/L (21.0-32.0); CHLORIDE - SERUM 88 mmol/L (98-107); PROTEIN - SERUM 7.3 g/dL (6.4-8.2); SODIUM 126 mmol/L (136-145); UREA NITROGEN 5 mg/dL (7-18); eGFR NON AFRICAN AMERICAN 83 mL/min (90-120)
[2017-11-06 12:12] LABS: GLUCOSE 143 mg/dL (74-106)
[2017-11-06 12:22] LABS: CKMB 0.3 U/L (0.0-3.6); PRO BNP 29 pg/mL (0-125)
[2017-11-06 12:28] LABS: TROPONIN-I < 0.017 ng/mL (0.000-0.060)
[2017-11-06 14:09] LABS: APPEARANCE CLEAR (CLEAR); BILIRUBIN NEGATIVE (NEGATIVE); COLOR YELLOW (YELLOW); GLUCOSE NEGATIVE (NEGATIVE); KETONE NEGATIVE (NEGATIVE); NITRITE NEGATIVE (NEGATIVE); PROTEIN NEGATIVE (NEGATIVE); UROBILINOGEN NORMAL (NORMAL)
[2017-11-06 14:15] LABS: UDS - AMPHET NEGATIVE QUAL (NEGATIVE); UDS - BARB NEGATIVE QUAL (NEGATIVE); UDS - BENZO NEGATIVE QUAL (NEGATIVE); UDS - COCAINE NEGATIVE QUAL (NEGATIVE); UDS - OPIATE NEGATIVE QUAL (NEGATIVE); UDS - PCP NEGATIVE QUAL (NEGATIVE); UDS - THC NEGATIVE QUAL (NEGATIVE)
[2017-11-06] MEDS ORDERED: OMEPRAZOLE20 M1 PO (16:55)
[2017-11-06 17:17] VITALS: BP 111/75
== END 2017-11-06 17:17 | disposition home or self-care (01) ==
LOC: D.ER 11:14
PROVIDERS: Family Medicine
DX: R07.9 Chest pain, unspecified (principal); F10.10 Alcohol abuse, uncomplicated; K21.9 Gastro-esophageal reflux disease without esophagitis; E87.1 Hypo-osmolality and hyponatremia; R51 Headache; I10 Essential (primary) hypertension; Z86.59 Personal history of other mental and behavioral disorders; Z85.46 Personal history of malignant neoplasm of prostate; F17.200 Nicotine dependence, unspecified, uncomplicated

== ENCOUNTER 2017-11-07 20:55 | Emergency (ER) | payer MEDICARE ==
[2017-11-06 11:16] VITALS: Ht 165.1 cm; Wt 68.0 kg
[~2017-11-07] VITALS: Ht 165.1 cm; Wt 68.0 kg
[~2017-11-07 20:55] MED LIST changes: +HYDROCODONE-APA1 TAB; +OMEPRAZOLE20 M1 PO; +SEROQUEL25 MG
[2017-11-08 07:39] VITALS: BP 122/68
== END 2017-11-08 07:32 | disposition home or self-care (01) ==
LOC: D.ER 20:55
DX: F10.10 Alcohol abuse, uncomplicated (principal); E87.1 Hypo-osmolality and hyponatremia; M25.511 Pain in right shoulder; F17.200 Nicotine dependence, unspecified, uncomplicated

== ENCOUNTER 2017-11-08 15:42 | Emergency (ER) | payer MEDICARE ==
[~2017-11-08] VITALS: Ht 165.1 cm; Wt 68.2 kg
[2017-11-08 16:14] VITALS: Ht 165.1 cm; Wt 68.2 kg
[2017-11-08 17:57] LABS: APPEARANCE CLEAR (CLEAR); COLOR STRAW (YELLOW); SPECIFIC GRAVITY 1.005 (1.005-1.020)
[2017-11-08 17:58] LABS: BILIRUBIN NEGATIVE (NEGATIVE); GLUCOSE NEGATIVE (NEGATIVE); KETONE NEGATIVE (NEGATIVE); NITRITE NEGATIVE (NEGATIVE); PROTEIN NEGATIVE (NEGATIVE); UROBILINOGEN NORMAL (NORMAL)
[2017-11-08 18:18] LABS: BASOPHILS 0.5 % (0-2); HEMATOCRIT 31.9 % (42.0-54.0); HEMOGLOBIN 11.3 g/dL (13.5-17.5); LYMPHOCYTES 48.9 % (15-50); MCH 32.6 pg (26.0-34.0); MCHC 35.4 g/dL (31.0-37.0); MCV 91.9 fL (80.0-100.0); MONOCYTES 7.4 % (2-11); NEUTROPHILS 41.2 % (40-80); PLATELET COUNT 161 10x3/uL (130-400); RBC 3.47 10x6/uL (4.20-6.10); RDW 14.9 % (11.5-14.5); WBC 3.9 10x3/uL (4.8-10.8)
[2017-11-08 18:52] LABS: ALBUMIN 3.2 g/dL (3.4-5.0); ALKALINE PHOSPHATASE 60 U/L (46-116); ALT (SGPT) 24 U/L (10-68); BILIRUBIN - TOTAL 0.46 mg/dL (0.2-1.3); CALC OSMOLALITY 259 mosm/kg (275-300); CALCIUM 7.9 mg/dL (8.5-10.1); CARBON DIOXIDE 26.6 mmol/L (21.0-32.0); CHLORIDE - SERUM 96 mmol/L (98-107); CREATININE - SERUM 0.8 mg/dL (0.6-1.3); PROTEIN - SERUM 6.3 g/dL (6.4-8.2); SODIUM 131 mmol/L (136-145); UREA NITROGEN 3 mg/dL (7-18); eGFR NON AFRICAN AMERICAN > 90 mL/min (90-120)
[2017-11-08 18:56] LABS: GLUCOSE 92 mg/dL (74-106)
[2017-11-08 19:07] LABS: UDS - AMPHET NEGATIVE QUAL (NEGATIVE); UDS - BARB NEGATIVE QUAL (NEGATIVE); UDS - BENZO NEGATIVE QUAL (NEGATIVE); UDS - COCAINE NEGATIVE QUAL (NEGATIVE); UDS - OPIATE NEGATIVE QUAL (NEGATIVE); UDS - PCP NEGATIVE QUAL (NEGATIVE); UDS - THC NEGATIVE QUAL (NEGATIVE)
[2017-11-09 18:38] VITALS: BP 146/95
== END 2017-11-09 18:38 | disposition home or self-care (01) ==
LOC: D.ER 15:42
PROVIDERS: Family Medicine
DX: F10.129 Alcohol abuse with intoxication, unspecified (principal); E87.1 Hypo-osmolality and hyponatremia

== ENCOUNTER 2017-11-10 19:42 | Emergency (ER) | payer MEDICARE ==
[~2017-11-10] VITALS: Ht 165.1 cm; Wt 63.6 kg
[2017-11-10 19:58] VITALS: Ht 165.1 cm; Wt 63.6 kg
[2017-11-10 22:39] LABS: ALBUMIN 3.1 g/dL (3.4-5.0); ALKALINE PHOSPHATASE 64 U/L (46-116); ALT (SGPT) 24 U/L (10-68); CALC OSMOLALITY 254 mosm/kg (275-300); CALCIUM 7.8 mg/dL (8.5-10.1); CARBON DIOXIDE 25.9 mmol/L (21.0-32.0); CHLORIDE - SERUM 92 mmol/L (98-107); CREATININE - SERUM 0.7 mg/dL (0.6-1.3); GLUCOSE 81 mg/dL (74-106); POTASSIUM - SERUM 3.7 mmol/L (3.5-5.1); PROTEIN - SERUM 6.1 g/dL (6.4-8.2); SODIUM 129 mmol/L (136-145); UREA NITROGEN 3 mg/dL (7-18); eGFR NON AFRICAN AMERICAN > 90 mL/min (90-120)
[2017-11-11 11:05] VITALS: BP 160/84
== END 2017-11-11 15:23 | disposition home or self-care (01) ==
LOC: D.ER 19:42
PROVIDERS: Family Medicine
DX: F10.129 Alcohol abuse with intoxication, unspecified (principal); M54.5 Low back pain; M25.512 Pain in left shoulder; M25.511 Pain in right shoulder; F17.200 Nicotine dependence, unspecified, uncomplicated

== ENCOUNTER 2017-11-12 18:15 | Emergency (ER) | payer MEDICARE ==
[~2017-11-12] VITALS: Ht 165.1 cm; Wt 63.6 kg
[2017-11-12 18:18] VITALS: Ht 165.1 cm; Wt 63.6 kg
[2017-11-13 00:20] VITALS: BP 131/79
== END 2017-11-13 06:14 | disposition home or self-care (01) ==
LOC: D.ER 18:15
DX: S51.011A Laceration without foreign body of right elbow, initial encounter (principal); W26.9XXA Contact with unspecified sharp object(s), initial encounter; Y93.89 Activity, other specified; Y92.89 Other specified places as the place of occurrence of the external cause; F17.200 Nicotine dependence, unspecified, uncomplicated; I10 Essential (primary) hypertension; Z86.73 Personal history of transient ischemic attack (TIA), and cerebral infarction without residual deficits

== ENCOUNTER 2017-11-14 20:53 | Emergency (ER) | payer MEDICARE ==
[~2017-11-14] VITALS: Ht 165.1 cm; Wt 63.6 kg
[2017-11-14 20:56] VITALS: Ht 165.1 cm; Wt 63.6 kg
[2017-11-14 21:25] LABS: APPEARANCE CLEAR (CLEAR); BILIRUBIN NEGATIVE (NEGATIVE); COLOR YELLOW (YELLOW); GLUCOSE NEGATIVE (NEGATIVE); KETONE NEGATIVE (NEGATIVE); NITRITE NEGATIVE (NEGATIVE); PROTEIN NEGATIVE (NEGATIVE); UROBILINOGEN NORMAL (NORMAL)
[2017-11-14 21:39] LABS: UDS - AMPHET NEGATIVE QUAL (NEGATIVE); UDS - BARB NEGATIVE QUAL (NEGATIVE); UDS - BENZO NEGATIVE QUAL (NEGATIVE); UDS - COCAINE NEGATIVE QUAL (NEGATIVE); UDS - OPIATE NEGATIVE QUAL (NEGATIVE); UDS - PCP NEGATIVE QUAL (NEGATIVE); UDS - THC NEGATIVE QUAL (NEGATIVE)
[2017-11-14 21:51] LABS: BASOPHILS 0.2 % (0-2); EOSINOPHILS 0.9 % (0-7); HEMATOCRIT 32.2 % (42.0-54.0); HEMOGLOBIN 11.9 g/dL (13.5-17.5); IMMATURE GRANULOCYTES 0.2 % (0-5); LYMPHOCYTES 34.7 % (15-50); MCH 33.5 pg (26.0-34.0); MCV 90.7 fL (80.0-100.0); MEAN PLATELET VOLUME 8.6 fL (7.4-10.4); MONOCYTES 12.9 % (2-11); NEUTROPHILS 51.1 % (40-80); RBC 3.55 10x6/uL (4.20-6.10); RDW 15.2 % (11.5-14.5); WBC 4.6 10x3/uL (4.8-10.8)
[2017-11-14 21:52] LABS: PLATELET COUNT 231 10x3/uL (130-400)
[2017-11-14 21:56] LABS: ALBUMIN 3.5 g/dL (3.4-5.0); ALKALINE PHOSPHATASE 70 U/L (46-116); ALT (SGPT) 24 U/L (10-68); CALC OSMOLALITY 250 mosm/kg (275-300); CALCIUM 8.1 mg/dL (8.5-10.1); CARBON DIOXIDE 28.1 mmol/L (21.0-32.0); CHLORIDE - SERUM 90 mmol/L (98-107); CREATININE - SERUM 0.8 mg/dL (0.6-1.3); GLUCOSE 100 mg/dL (74-106); POTASSIUM - SERUM 3.8 mmol/L (3.5-5.1); PROTEIN - SERUM 7.1 g/dL (6.4-8.2); SODIUM 126 mmol/L (136-145); UREA NITROGEN 6 mg/dL (7-18); eGFR NON AFRICAN AMERICAN > 90 mL/min (90-120)
[2017-11-14 21:57] LABS: MAGNESIUM - SERUM 1.5 mg/dL (1.8-2.4)
[2017-11-15 13:45] VITALS: BP 132/74
== END 2017-11-15 13:48 | disposition home or self-care (01) ==
LOC: D.ER 20:53
PROVIDERS: Family Medicine
DX: F10.10 Alcohol abuse, uncomplicated (principal); Z76.5 Malingerer [conscious simulation]; R45.851 Suicidal ideations; F17.200 Nicotine dependence, unspecified, uncomplicated

== ENCOUNTER 2017-11-19 11:59 | Emergency (ER) | payer MEDICARE ==
[2017-11-19 12:12] VITALS: Ht 165.1 cm
[2017-11-19 13:33] LABS: BASOPHILS 0.5 % (0-2); EOSINOPHILS 0.5 % (0-7); HEMATOCRIT 34.2 % (42.0-54.0); HEMOGLOBIN 12.1 g/dL (13.5-17.5); IMMATURE GRANULOCYTES 0.2 % (0-5); LYMPHOCYTES 30.5 % (15-50); MCH 33.2 pg (26.0-34.0); MCHC 35.4 g/dL (31.0-37.0); MEAN PLATELET VOLUME 8.6 fL (7.4-10.4); MONOCYTES 13.2 % (2-11); NEUTROPHILS 55.1 % (40-80); PLATELET COUNT 224 10x3/uL (130-400); RBC 3.64 10x6/uL (4.20-6.10); RDW 15.9 % (11.5-14.5); WBC 4.1 10x3/uL (4.8-10.8)
[2017-11-19 13:48] LABS: APPEARANCE CLEAR (CLEAR); BILIRUBIN NEGATIVE (NEGATIVE); COLOR STRAW (YELLOW); GLUCOSE NEGATIVE (NEGATIVE); KETONE MODERATE mg/dL (NEGATIVE); NITRITE NEGATIVE (NEGATIVE); PROTEIN NEGATIVE (NEGATIVE); UROBILINOGEN NORMAL (NORMAL)
[2017-11-19 13:56] LABS: ALBUMIN 3.7 g/dL (3.4-5.0); ALKALINE PHOSPHATASE 83 U/L (46-116); ALT (SGPT) 50 U/L (10-68); BILIRUBIN - TOTAL 0.97 mg/dL (0.2-1.3); CALC OSMOLALITY 256 mosm/kg (275-300); CALCIUM 8.8 mg/dL (8.5-10.1); CARBON DIOXIDE 25.7 mmol/L (21.0-32.0); CHLORIDE - SERUM 89 mmol/L (98-107); POTASSIUM - SERUM 4.1 mmol/L (3.5-5.1); PROTEIN - SERUM 7.9 g/dL (6.4-8.2); SODIUM 127 mmol/L (136-145); UREA NITROGEN 9 mg/dL (7-18); eGFR NON AFRICAN AMERICAN 83 mL/min (90-120)
[2017-11-19 13:58] LABS: UDS - AMPHET NEGATIVE QUAL (NEGATIVE); UDS - BARB NEGATIVE QUAL (NEGATIVE); UDS - BENZO NEGATIVE QUAL (NEGATIVE); UDS - COCAINE NEGATIVE QUAL (NEGATIVE); UDS - OPIATE NEGATIVE QUAL (NEGATIVE); UDS - PCP NEGATIVE QUAL (NEGATIVE); UDS - THC NEGATIVE QUAL (NEGATIVE)
[2017-11-19 13:59] LABS: GLUCOSE 159 mg/dL (74-106)
[2017-11-19 14:04] LABS: THYROID STIMULATING HORMONE 0.82 uIU/mL (0.36-3.74)
[2017-11-20] MEDS ORDERED: SEROQUEL100 MG PO (03:17)
[2017-11-20] MEDS ORDERED: PROZAC10 MG PO (03:17)
[2017-11-20] MEDS ORDERED: TENORMIN25 MG PO (03:17)
[2017-11-20] MEDS ORDERED: TRAZODONE HCL50 MG PO (03:17)
[2017-11-20 03:30] VITALS: BP 110/68
== END 2017-11-20 03:30 | disposition home or self-care (01) ==
LOC: D.ER 11:59
PROVIDERS: Family Medicine
DX: F10.10 Alcohol abuse, uncomplicated (principal); F29 Unspecified psychosis not due to a substance or known physiological condition

== ENCOUNTER 2017-11-23 12:56 | Emergency (ER) | payer MEDICARE ==
[~2017-11-23 12:56] MED LIST changes: +PROZAC10 MG PO; +SEROQUEL100 MG PO; +TRAZODONE HCL50 MG PO
[2017-11-23 13:13] VITALS: Ht 165.1 cm
[2017-11-23 15:25] LABS: BASOPHILS 0.6 % (0-2); EOSINOPHILS 2.9 % (0-7); HEMATOCRIT 27.9 % (42.0-54.0); HEMOGLOBIN 9.6 g/dL (13.5-17.5); LYMPHOCYTES 47.9 % (15-50); MCH 33.2 pg (26.0-34.0); MCHC 34.4 g/dL (31.0-37.0); MCV 96.5 fL (80.0-100.0); MONOCYTES 7.1 % (2-11); NEUTROPHILS 41.5 % (40-80); RBC 2.89 10x6/uL (4.20-6.10); RDW 16.5 % (11.5-14.5); WBC 3.4 10x3/uL (4.8-10.8)
[2017-11-23 16:05] LABS: ACETAMINOPHEN 1.5 ug/mL (10.0-30.0); CALC OSMOLALITY 267 mosm/kg (275-300); CALCIUM 7.4 mg/dL (8.5-10.1); CARBON DIOXIDE 26.9 mmol/L (21.0-32.0); CHLORIDE - SERUM 101 mmol/L (98-107); POTASSIUM - SERUM 4.2 mmol/L (3.5-5.1); SODIUM 136 mmol/L (136-145); UREA NITROGEN 4 mg/dL (7-18); eGFR NON AFRICAN AMERICAN 83 mL/min (90-120)
[2017-11-23 16:06] LABS: PLATELET COUNT 160 10x3/uL (130-400)
[2017-11-23 16:13] LABS: GLUCOSE 85 mg/dL (74-106)
[2017-11-23 16:53] LABS: UDS - AMPHET NEGATIVE QUAL (NEGATIVE); UDS - BARB NEGATIVE QUAL (NEGATIVE); UDS - BENZO NEGATIVE QUAL (NEGATIVE); UDS - COCAINE NEGATIVE QUAL (NEGATIVE); UDS - OPIATE NEGATIVE QUAL (NEGATIVE); UDS - PCP NEGATIVE QUAL (NEGATIVE); UDS - THC NEGATIVE QUAL (NEGATIVE)
[2017-11-24 06:52] VITALS: BP 122/71
== END 2017-11-24 06:53 | disposition home or self-care (01) ==
LOC: D.ER 12:56
PROVIDERS: Emergency Medicine
DX: F10.129 Alcohol abuse with intoxication, unspecified (principal); F10.10 Alcohol abuse, uncomplicated

== ENCOUNTER 2018-01-03 15:18 | Emergency (ER) | payer MEDICARE ==
[2018-01-03 15:25] VITALS: Ht 165.1 cm
[2018-01-03 16:03] LABS: BASOPHILS 0.4 % (0-2); EOSINOPHILS 0.2 % (0-7); HEMOGLOBIN 12.3 g/dL (13.5-17.5); IMMATURE GRANULOCYTES 0.2 % (0-5); LYMPHOCYTES 28.7 % (15-50); MCH 33.3 pg (26.0-34.0); MCHC 36.2 g/dL (31.0-37.0); MCV 92.1 fL (80.0-100.0); MEAN PLATELET VOLUME 8.5 fL (7.4-10.4); MONOCYTES 6.4 % (2-11); NEUTROPHILS 64.1 % (40-80); RBC 3.69 10x6/uL (4.20-6.10); RDW 13.7 % (11.5-14.5); WBC 5.3 10x3/uL (4.8-10.8)
[2018-01-03 16:07] LABS: PLATELET COUNT 200 10x3/uL (130-400)
[2018-01-03 16:29] LABS: ALBUMIN 3.7 g/dL (3.4-5.0); ANION GAP 11.3 mmol/L (8-16); BILIRUBIN - TOTAL 0.33 mg/dL (0.2-1.3); CARBON DIOXIDE 28.8 mmol/L (21.0-32.0); CREATININE - SERUM 1.1 mg/dL (0.6-1.3); POTASSIUM - SERUM 4.1 mmol/L (3.5-5.1); PROTEIN - SERUM 7.2 g/dL (6.4-8.2)
[2018-01-03 16:32] LABS: APPEARANCE CLEAR (CLEAR); COLOR YELLOW (YELLOW); GLUCOSE NEGATIVE (NEGATIVE); NITRITE NEGATIVE (NEGATIVE); PROTEIN NEGATIVE (NEGATIVE); SPECIFIC GRAVITY 1.015 (1.005-1.020)
[2018-01-03 16:33] LABS: BILIRUBIN NEGATIVE (NEGATIVE); KETONE SMALL mg/dL (NEGATIVE); UROBILINOGEN NORMAL (NORMAL)
[2018-01-03 16:41] LABS: UDS - AMPHET NEGATIVE QUAL (NEGATIVE); UDS - BARB NEGATIVE QUAL (NEGATIVE); UDS - BENZO NEGATIVE QUAL (NEGATIVE); UDS - COCAINE NEGATIVE QUAL (NEGATIVE); UDS - OPIATE NEGATIVE QUAL (NEGATIVE); UDS - PCP NEGATIVE QUAL (NEGATIVE); UDS - THC NEGATIVE QUAL (NEGATIVE)
[2018-01-03 17:46] LABS: AMYLASE - SERUM 34 U/L (25-115); LIPASE 79 U/L (73-393)
[2018-01-03 21:12] VITALS: BP 147/91
== END 2018-01-03 21:17 | disposition home or self-care (01) ==
LOC: D.ER 15:18
PROVIDERS: Family Medicine
DX: F10.129 Alcohol abuse with intoxication, unspecified (principal); E87.1 Hypo-osmolality and hyponatremia; R33.9 Retention of urine, unspecified; R19.7 Diarrhea, unspecified; F17.200 Nicotine dependence, unspecified, uncomplicated

== ENCOUNTER 2018-01-09 19:42 | Emergency (ER) | payer MEDICARE ==
[~2018-01-09] VITALS: Ht 165.1 cm; Wt 68.2 kg
[2018-01-09 20:31] VITALS: Ht 165.1 cm; Wt 68.2 kg
[2018-01-09] MEDS ORDERED: TORADOL10 MG PO (21:52)
[2018-01-09 22:05] VITALS: BP 144/96
== END 2018-01-09 22:05 | disposition home or self-care (01) ==
LOC: D.ER 19:42
DX: S90.822A Blister (nonthermal), left foot, initial encounter (principal); S90.821A Blister (nonthermal), right foot, initial encounter; Y93.01 Activity, walking, marching and hiking; Y92.410 Unspecified street and highway as the place of occurrence of the external cause; R46.0 Very low level of personal hygiene; M79.672 Pain in left foot; M79.671 Pain in right foot; F17.200 Nicotine dependence, unspecified, uncomplicated

== ENCOUNTER 2018-01-21 11:54 | Emergency (ER) | payer MEDICARE ==
[~2018-01-21] VITALS: Ht 165.1 cm; Wt 63.6 kg
[~2018-01-21 11:54] MED LIST changes: +TORADOL10 MG PO
[2018-01-21 11:57] VITALS: Ht 165.1 cm; Wt 63.6 kg
[2018-01-21] MEDS ORDERED: PREDNISONE10 MG PO (15:37)
[2018-01-21] MEDS ORDERED: ACETAMINOPHEN500 M1 PO (15:37)
[2018-01-21 15:44] VITALS: BP 187/95
== END 2018-01-21 15:44 | disposition home or self-care (01) ==
LOC: D.ER 11:54
DX: M25.511 Pain in right shoulder (principal); I10 Essential (primary) hypertension; F17.200 Nicotine dependence, unspecified, uncomplicated

== ENCOUNTER 2018-01-30 19:04 | Emergency (ER) | payer MEDICARE ==
[~2018-01-30] VITALS: Ht 165.1 cm; Wt 59.1 kg
[~2018-01-30 19:04] MED LIST changes: +ACETAMINOPHEN500 M1 PO; +PREDNISONE10 MG PO
[2018-01-30 19:08] VITALS: Ht 165.1 cm; Wt 59.1 kg
[2018-01-30 21:54] VITALS: BP 117/82
== END 2018-01-30 21:54 | disposition home or self-care (01) ==
LOC: D.ER 19:04
DX: Z76.5 Malingerer [conscious simulation] (principal); Z76.0 Encounter for issue of repeat prescription; I10 Essential (primary) hypertension; F17.200 Nicotine dependence, unspecified, uncomplicated

== ENCOUNTER 2018-02-06 14:35 | Emergency (ER) | payer MEDICARE ==
[2018-02-06 15:09] VITALS: Ht 165.1 cm
[2018-02-06 15:42] LABS: BASOPHILS 0.2 % (0-2); EOSINOPHILS 0.8 % (0-7); HEMOGLOBIN 12.6 g/dL (13.5-17.5); LYMPHOCYTES 32.1 % (15-50); MCH 33.9 pg (26.0-34.0); MCV 94.1 fL (80.0-100.0); MEAN PLATELET VOLUME 8.8 fL (7.4-10.4); MONOCYTES 7.4 % (2-11); NEUTROPHILS 59.5 % (40-80); PLATELET COUNT 203 10x3/uL (130-400); RBC 3.72 10x6/uL (4.20-6.10); WBC 5.1 10x3/uL (4.8-10.8)
[2018-02-06 16:51] LABS: ALBUMIN 3.5 g/dL (3.4-5.0); ALKALINE PHOSPHATASE 90 U/L (46-116); ALT (SGPT) 46 U/L (10-68); BILIRUBIN - TOTAL 0.63 mg/dL (0.2-1.3); CALC OSMOLALITY 261 mosm/kg (275-300); CALCIUM 7.8 mg/dL (8.5-10.1); CARBON DIOXIDE 25.9 mmol/L (21.0-32.0); CHLORIDE - SERUM 96 mmol/L (98-107); CREATININE - SERUM 0.9 mg/dL (0.6-1.3); GLUCOSE 111 mg/dL (74-106); POTASSIUM - SERUM 3.9 mmol/L (3.5-5.1); PROTEIN - SERUM 7.1 g/dL (6.4-8.2); SODIUM 131 mmol/L (136-145); UREA NITROGEN 6 mg/dL (7-18); eGFR NON AFRICAN AMERICAN > 90 mL/min (90-120)
[2018-02-06 17:10] LABS: AMYLASE - SERUM 46 U/L (25-115); CREATINE KINASE 283 UL (21-232); LIPASE 250 U/L (73-393); MAGNESIUM - SERUM 1.4 mg/dL (1.8-2.4); TROPONIN-I < 0.017 ng/mL (0.000-0.060)
[2018-02-06 17:15] LABS: CKMB 1.1 U/L (0.0-3.6)
[2018-02-06 19:01] LABS: APPEARANCE CLEAR (CLEAR); BILIRUBIN NEGATIVE (NEGATIVE); COLOR YELLOW (YELLOW); GLUCOSE NEGATIVE (NEGATIVE); KETONE NEGATIVE (NEGATIVE); NITRITE NEGATIVE (NEGATIVE); PROTEIN NEGATIVE (NEGATIVE); UROBILINOGEN NORMAL (NORMAL)
[2018-02-06 19:04] LABS: UDS - AMPHET NEGATIVE QUAL (NEGATIVE); UDS - BARB NEGATIVE QUAL (NEGATIVE); UDS - BENZO NEGATIVE QUAL (NEGATIVE); UDS - COCAINE NEGATIVE QUAL (NEGATIVE); UDS - OPIATE NEGATIVE QUAL (NEGATIVE); UDS - PCP NEGATIVE QUAL (NEGATIVE); UDS - THC NEGATIVE QUAL (NEGATIVE)
[2018-02-07 00:56] VITALS: BP 140/89
== END 2018-02-07 00:55 | disposition home or self-care (01) ==
LOC: D.ER 14:35
PROVIDERS: Family Medicine
DX: F10.10 Alcohol abuse, uncomplicated (principal); I10 Essential (primary) hypertension; F17.200 Nicotine dependence, unspecified, uncomplicated

== ENCOUNTER 2018-02-14 17:29 | Emergency (ER) | payer MEDICARE ==
[2018-02-14 17:37] VITALS: Ht 165.1 cm
[2018-02-14 17:57] LABS: APPEARANCE CLEAR (CLEAR); BILIRUBIN NEGATIVE (NEGATIVE); COLOR YELLOW (YELLOW); GLUCOSE NEGATIVE (NEGATIVE); KETONE NEGATIVE (NEGATIVE); NITRITE NEGATIVE (NEGATIVE); PROTEIN NEGATIVE (NEGATIVE); UROBILINOGEN NORMAL (NORMAL)
[2018-02-14 17:58] LABS: BACTERIA FEW /hpf (NONE SEEN); WHITE CELLS - URINE 0-5 /hpf (0-5)
[2018-02-14 18:01] LABS: BASOPHILS 0.6 % (0-2); EOSINOPHILS 3.1 % (0-7); HEMATOCRIT 31.6 % (42.0-54.0); HEMOGLOBIN 11.2 g/dL (13.5-17.5); IMMATURE GRANULOCYTES 0.2 % (0-5); LYMPHOCYTES 39.9 % (15-50); MCH 33.7 pg (26.0-34.0); MCHC 35.4 g/dL (31.0-37.0); MCV 95.2 fL (80.0-100.0); MEAN PLATELET VOLUME 8.6 fL (7.4-10.4); MONOCYTES 14.7 % (2-11); NEUTROPHILS 41.5 % (40-80); PLATELET COUNT 196 10x3/uL (130-400); RBC 3.32 10x6/uL (4.20-6.10); RDW 15.1 % (11.5-14.5); WBC 5.1 10x3/uL (4.8-10.8)
[2018-02-14 18:06] LABS: UDS - AMPHET NEGATIVE QUAL (NEGATIVE); UDS - BARB NEGATIVE QUAL (NEGATIVE); UDS - BENZO NEGATIVE QUAL (NEGATIVE); UDS - COCAINE NEGATIVE QUAL (NEGATIVE); UDS - OPIATE NEGATIVE QUAL (NEGATIVE); UDS - PCP NEGATIVE QUAL (NEGATIVE); UDS - THC NEGATIVE QUAL (NEGATIVE)
[2018-02-14 18:25] LABS: ALBUMIN 3.1 g/dL (3.4-5.0); ALKALINE PHOSPHATASE 75 U/L (46-116); ALT (SGPT) 38 U/L (10-68); BILIRUBIN - TOTAL 0.27 mg/dL (0.2-1.3); CALC OSMOLALITY 250 mosm/kg (275-300); CALCIUM 8.4 mg/dL (8.5-10.1); CARBON DIOXIDE 25.6 mmol/L (21.0-32.0); CHLORIDE - SERUM 90 mmol/L (98-107); CREATININE - SERUM 0.9 mg/dL (0.6-1.3); GLUCOSE 98 mg/dL (74-106); MAGNESIUM - SERUM 1.7 mg/dL (1.8-2.4); POTASSIUM - SERUM 4.3 mmol/L (3.5-5.1); PROTEIN - SERUM 6.8 g/dL (6.4-8.2); SODIUM 125 mmol/L (136-145); UREA NITROGEN 11 mg/dL (7-18); eGFR NON AFRICAN AMERICAN > 90 mL/min (90-120)
[2018-02-15 06:27] VITALS: BP 146/84
== END 2018-02-15 06:27 | disposition home or self-care (01) ==
LOC: D.ER 17:29
PROVIDERS: Family Medicine
DX: F10.10 Alcohol abuse, uncomplicated (principal); F17.200 Nicotine dependence, unspecified, uncomplicated

== ENCOUNTER 2018-02-25 11:52 | Emergency (ER) | payer MEDICARE ==
[~2018-02-25] VITALS: Ht 165.1 cm; Wt 63.6 kg
[2018-02-25 11:53] VITALS: Ht 165.1 cm; Wt 63.6 kg
[2018-02-25] MEDS ORDERED: TRAZODONE HCL100 MG PO (12:16)
[2018-02-25] MEDS ORDERED: PROZAC10 MG PO (12:16)
[2018-02-25] MEDS ORDERED: SEROQUEL XR150 MG PO (12:16)
[2018-02-25] MEDS ORDERED: TENORMIN50 MG PO (12:16)
[2018-02-25 12:55] LABS: HEMATOCRIT 33.4 % (42.0-54.0); HEMOGLOBIN 11.6 g/dL (13.5-17.5); MCH 33.7 pg (26.0-34.0); MCHC 34.7 g/dL (31.0-37.0); MCV 97.1 fL (80.0-100.0); MEAN PLATELET VOLUME 8.8 fL (7.4-10.4); RBC 3.44 10x6/uL (4.20-6.10); RDW 15.1 % (11.5-14.5)
[2018-02-25 13:08] LABS: PLATELET COUNT 292 10x3/uL (130-400)
[2018-02-25 13:11] LABS: ALBUMIN 3.3 g/dL (3.4-5.0); ALKALINE PHOSPHATASE 61 U/L (46-116); ALT (SGPT) 39 U/L (10-68); BILIRUBIN - TOTAL 0.43 mg/dL (0.2-1.3); CALC OSMOLALITY 260 mosm/kg (275-300); CALCIUM 8.4 mg/dL (8.5-10.1); CARBON DIOXIDE 23.8 mmol/L (21.0-32.0); CHLORIDE - SERUM 95 mmol/L (98-107); CREATININE - SERUM 0.7 mg/dL (0.6-1.3); GLUCOSE 85 mg/dL (74-106); PROTEIN - SERUM 6.8 g/dL (6.4-8.2); SODIUM 131 mmol/L (136-145); UREA NITROGEN 9 mg/dL (7-18); eGFR NON AFRICAN AMERICAN > 90 mL/min (90-120)
[2018-02-25 13:15] LABS: POTASSIUM - SERUM 4.1 mmol/L (3.5-5.1)
[2018-02-25 22:36] VITALS: BP 125/74
== END 2018-02-25 22:38 | disposition home or self-care (01) ==
LOC: D.ER 11:52
PROVIDERS: Emergency Medicine
DX: F10.129 Alcohol abuse with intoxication, unspecified (principal); Z91.14 Patient's other noncompliance with medication regimen; F17.200 Nicotine dependence, unspecified, uncomplicated

== ENCOUNTER 2018-03-05 10:57 | Emergency (ER) | payer MEDICARE ==
[~2018-03-05] VITALS: Ht 165.1 cm; Wt 68.2 kg
[~2018-03-05 10:57] MED LIST changes: +SEROQUEL XR150 MG PO; +TRAZODONE HCL100 MG PO
[2018-03-05 11:06] VITALS: Ht 165.1 cm; Wt 68.2 kg
[2018-03-05] MEDS ORDERED: IBUPROFEN800 MG PO (11:44)
[2018-03-05 12:58] VITALS: BP 134/79
== END 2018-03-05 12:24 | disposition home or self-care (01) ==
LOC: D.ER 10:57
DX: S20.212A Contusion of left front wall of thorax, initial encounter (principal); W18.30XA Fall on same level, unspecified, initial encounter; Y93.89 Activity, other specified; Y92.019 Unspecified place in single-family (private) house as the place of occurrence of the external cause; F10.10 Alcohol abuse, uncomplicated; Z86.59 Personal history of other mental and behavioral disorders; F17.200 Nicotine dependence, unspecified, uncomplicated

== ENCOUNTER 2018-03-18 17:52 | Emergency (ER) | payer MEDICARE ==
[~2018-03-18] VITALS: Ht 165.1 cm; Wt 68.2 kg
[~2018-03-18 17:52] MED LIST changes: +IBUPROFEN800 MG PO
[2018-03-18 17:58] VITALS: Ht 165.1 cm; Wt 68.2 kg
[2018-03-18 18:26] LABS: BASOPHILS 0.6 % (0-2); HEMATOCRIT 32.3 % (42.0-54.0); HEMOGLOBIN 11.1 g/dL (13.5-17.5); IMMATURE GRANULOCYTES 0.2 % (0-5); MCH 33.2 pg (26.0-34.0); MCHC 34.4 g/dL (31.0-37.0); MCV 96.7 fL (80.0-100.0); MEAN PLATELET VOLUME 8.9 fL (7.4-10.4); NEUTROPHILS 52.2 % (40-80); PLATELET COUNT 312 10x3/uL (130-400); RBC 3.34 10x6/uL (4.20-6.10); RDW 13.9 % (11.5-14.5)
[2018-03-18 18:40] LABS: UDS - AMPHET NEGATIVE QUAL (NEGATIVE); UDS - BARB NEGATIVE QUAL (NEGATIVE); UDS - BENZO NEGATIVE QUAL (NEGATIVE); UDS - COCAINE NEGATIVE QUAL (NEGATIVE); UDS - OPIATE NEGATIVE QUAL (NEGATIVE); UDS - PCP NEGATIVE QUAL (NEGATIVE); UDS - THC NEGATIVE QUAL (NEGATIVE)
[2018-03-18 18:44] LABS: ALBUMIN 3.7 g/dL (3.4-5.0); ALKALINE PHOSPHATASE 98 U/L (46-116); ALT (SGPT) 73 U/L (10-68); BILIRUBIN - TOTAL 0.32 mg/dL (0.2-1.3); CALC OSMOLALITY 263 mosm/kg (275-300); CALCIUM 8.6 mg/dL (8.5-10.1); CHLORIDE - SERUM 96 mmol/L (98-107); CREATININE - SERUM 0.9 mg/dL (0.6-1.3); GLUCOSE 85 mg/dL (74-106); POTASSIUM - SERUM 3.9 mmol/L (3.5-5.1); PROTEIN - SERUM 7.3 g/dL (6.4-8.2); SODIUM 133 mmol/L (136-145); UREA NITROGEN 9 mg/dL (7-18); eGFR NON AFRICAN AMERICAN > 90 mL/min (90-120)
[2018-03-18 18:45] LABS: APPEARANCE CLEAR (CLEAR); BILIRUBIN NEGATIVE (NEGATIVE); COLOR YELLOW (YELLOW); GLUCOSE NEGATIVE (NEGATIVE); KETONE NEGATIVE (NEGATIVE); NITRITE NEGATIVE (NEGATIVE); PROTEIN NEGATIVE (NEGATIVE); SPECIFIC GRAVITY 1.015 (1.005-1.020); UROBILINOGEN NORMAL (NORMAL)
[2018-03-18 20:29] VITALS: BP 130/79
== END 2018-03-18 22:30 ==
LOC: D.ER 17:52
PROVIDERS: Emergency Medicine
DX: R45.850 Homicidal ideations (principal); F10.129 Alcohol abuse with intoxication, unspecified; F10.10 Alcohol abuse, uncomplicated; I10 Essential (primary) hypertension; Z86.59 Personal history of other mental and behavioral disorders; F17.200 Nicotine dependence, unspecified, uncomplicated

== ENCOUNTER 2018-04-09 12:29 | Emergency (ER) | payer MEDICARE ==
[~2018-04-09] VITALS: Ht 165.1 cm; Wt 65.9 kg
[2018-04-09 12:48] VITALS: Ht 165.1 cm; Wt 65.9 kg
[2018-04-09 13:38] LABS: APPEARANCE CLEAR (CLEAR); COLOR YELLOW (YELLOW); NITRITE NEGATIVE (NEGATIVE)
[2018-04-09 13:39] LABS: BILIRUBIN NEGATIVE (NEGATIVE); GLUCOSE NEGATIVE (NEGATIVE); KETONE NEGATIVE (NEGATIVE); PROTEIN NEGATIVE (NEGATIVE); UROBILINOGEN NORMAL (NORMAL)
[2018-04-09 13:45] LABS: UDS - AMPHET NEGATIVE QUAL (NEGATIVE); UDS - BARB NEGATIVE QUAL (NEGATIVE); UDS - BENZO NEGATIVE QUAL (NEGATIVE); UDS - COCAINE NEGATIVE QUAL (NEGATIVE); UDS - OPIATE NEGATIVE QUAL (NEGATIVE); UDS - PCP NEGATIVE QUAL (NEGATIVE); UDS - THC NEGATIVE QUAL (NEGATIVE)
[2018-04-09 13:50] LABS: BASOPHILS 0.2 % (0-2); EOSINOPHILS 5.4 % (0-7); HEMATOCRIT 32.5 % (42.0-54.0); HEMOGLOBIN 11.6 g/dL (13.5-17.5); IMMATURE GRANULOCYTES 0.2 % (0-5); LYMPHOCYTES 45.8 % (15-50); MCH 32.3 pg (26.0-34.0); MCHC 35.7 g/dL (31.0-37.0); MCV 90.5 fL (80.0-100.0); MEAN PLATELET VOLUME 10.4 fL (7.4-10.4); MONOCYTES 11.3 % (2-11); NEUTROPHILS 37.1 % (40-80); RBC 3.59 10x6/uL (4.20-6.10); RDW 12.9 % (11.5-14.5); WBC 4.1 10x3/uL (4.8-10.8)
[2018-04-09 13:52] LABS: PLATELET COUNT 184 10x3/uL (130-400)
[2018-04-09 14:02] LABS: ALBUMIN 3.4 g/dL (3.4-5.0); ALKALINE PHOSPHATASE 73 U/L (46-116); ALT (SGPT) 53 U/L (10-68); BILIRUBIN - TOTAL 0.26 mg/dL (0.2-1.3); CARBON DIOXIDE 28.1 mmol/L (21.0-32.0); CREATININE - SERUM 0.7 mg/dL (0.6-1.3); GLUCOSE 82 mg/dL (74-106); POTASSIUM - SERUM 4.3 mmol/L (3.5-5.1); PROTEIN - SERUM 7.2 g/dL (6.4-8.2); UREA NITROGEN 5 mg/dL (7-18); eGFR NON AFRICAN AMERICAN > 90 mL/min (90-120)
[2018-04-09 14:04] LABS: CALC OSMOLALITY 237 mosm/kg (275-300)
[2018-04-09 14:06] LABS: CHLORIDE - SERUM 85 mmol/L (98-107); SODIUM 120 mmol/L (136-145)
[2018-04-10 03:07] VITALS: BP 145/79
== END 2018-04-10 03:08 | disposition home or self-care (01) ==
LOC: D.ER 12:29
PROVIDERS: Family Medicine
DX: E87.1 Hypo-osmolality and hyponatremia (principal); F10.129 Alcohol abuse with intoxication, unspecified; I10 Essential (primary) hypertension

== ENCOUNTER 2018-04-12 18:13 | Emergency (ER) | payer MEDICARE ==
[~2018-04-12] VITALS: Ht 165.1 cm; Wt 65.9 kg
[2018-04-12 18:32] VITALS: Ht 165.1 cm; Wt 65.9 kg
[2018-04-12 19:26] LABS: BASOPHILS 0.3 % (0-2); EOSINOPHILS 4.8 % (0-7); HEMATOCRIT 30.1 % (42.0-54.0); HEMOGLOBIN 10.7 g/dL (13.5-17.5); IMMATURE GRANULOCYTES 0.2 % (0-5); LYMPHOCYTES 41.5 % (15-50); MCH 32.3 pg (26.0-34.0); MCHC 35.5 g/dL (31.0-37.0); MCV 90.9 fL (80.0-100.0); MEAN PLATELET VOLUME 9.7 fL (7.4-10.4); MONOCYTES 11.4 % (2-11); NEUTROPHILS 41.8 % (40-80); PLATELET COUNT 171 10x3/uL (130-400); RBC 3.31 10x6/uL (4.20-6.10); RDW 13.3 % (11.5-14.5); WBC 5.9 10x3/uL (4.8-10.8)
[2018-04-12 19:30] LABS: APPEARANCE CLEAR (CLEAR); BILIRUBIN NEGATIVE (NEGATIVE); COLOR YELLOW (YELLOW); GLUCOSE NEGATIVE (NEGATIVE); KETONE NEGATIVE (NEGATIVE); NITRITE NEGATIVE (NEGATIVE); PROTEIN NEGATIVE (NEGATIVE); UROBILINOGEN NORMAL (NORMAL)
[2018-04-12 19:38] LABS: UDS - AMPHET NEGATIVE QUAL (NEGATIVE); UDS - BARB NEGATIVE QUAL (NEGATIVE); UDS - BENZO NEGATIVE QUAL (NEGATIVE); UDS - COCAINE NEGATIVE QUAL (NEGATIVE); UDS - OPIATE NEGATIVE QUAL (NEGATIVE); UDS - PCP NEGATIVE QUAL (NEGATIVE); UDS - THC NEGATIVE QUAL (NEGATIVE)
[2018-04-12 19:53] LABS: ALBUMIN 3.1 g/dL (3.4-5.0); ALKALINE PHOSPHATASE 61 U/L (46-116); ALT (SGPT) 45 U/L (10-68); BILIRUBIN - TOTAL 0.26 mg/dL (0.2-1.3); CALC OSMOLALITY 245 mosm/kg (275-300); CARBON DIOXIDE 26.5 mmol/L (21.0-32.0); CHLORIDE - SERUM 88 mmol/L (98-107); CREATININE - SERUM 0.9 mg/dL (0.6-1.3); GLUCOSE 90 mg/dL (74-106); POTASSIUM - SERUM 3.9 mmol/L (3.5-5.1); PROTEIN - SERUM 6.4 g/dL (6.4-8.2); SODIUM 123 mmol/L (136-145); UREA NITROGEN 6 mg/dL (7-18); eGFR NON AFRICAN AMERICAN > 90 mL/min (90-120)
[2018-04-13 03:02] VITALS: BP 118/70
== END 2018-04-13 04:05 ==
LOC: D.ER 18:13
PROVIDERS: Family Medicine
DX: Z86.59 Personal history of other mental and behavioral disorders (principal); F10.129 Alcohol abuse with intoxication, unspecified; F10.10 Alcohol abuse, uncomplicated; I10 Essential (primary) hypertension; F17.200 Nicotine dependence, unspecified, uncomplicated

== ENCOUNTER 2018-05-10 15:54 | Emergency (ER) | payer MEDICARE ==
[2018-05-10 16:16] LABS: APPEARANCE CLEAR (CLEAR); BILIRUBIN NEGATIVE (NEGATIVE); COLOR YELLOW (YELLOW); GLUCOSE NEGATIVE (NEGATIVE); KETONE NEGATIVE (NEGATIVE); NITRITE NEGATIVE (NEGATIVE); PROTEIN NEGATIVE (NEGATIVE); UROBILINOGEN NORMAL (NORMAL)
[2018-05-10 16:22] LABS: UDS - AMPHET NEGATIVE QUAL (NEGATIVE); UDS - BARB NEGATIVE QUAL (NEGATIVE); UDS - BENZO NEGATIVE QUAL (NEGATIVE); UDS - COCAINE NEGATIVE QUAL (NEGATIVE); UDS - OPIATE NEGATIVE QUAL (NEGATIVE); UDS - PCP NEGATIVE QUAL (NEGATIVE); UDS - THC NEGATIVE QUAL (NEGATIVE)
[2018-05-10 16:34] LABS: HEMATOCRIT 36.9 % (42.0-54.0); HEMOGLOBIN 13.3 g/dL (13.5-17.5); MCH 32.2 pg (26.0-34.0); MCV 89.3 fL (80.0-100.0); RBC 4.13 10x6/uL (4.20-6.10); RDW 13.5 % (11.5-14.5); WBC 2.8 10x3/uL (4.8-10.8)
[2018-05-10 16:51] LABS: PLATELET COUNT 242 10x3/uL (130-400)
[2018-05-10 17:09] LABS: ALBUMIN 3.7 g/dL (3.4-5.0); ALKALINE PHOSPHATASE 68 U/L (46-116); ALT (SGPT) 28 U/L (10-68); BILIRUBIN - TOTAL 0.31 mg/dL (0.2-1.3); CALC OSMOLALITY 257 mosm/kg (275-300); CALCIUM 8.6 mg/dL (8.5-10.1); CARBON DIOXIDE 28.1 mmol/L (21.0-32.0); CHLORIDE - SERUM 91 mmol/L (98-107); CREATININE - SERUM 0.9 mg/dL (0.6-1.3); GLUCOSE 89 mg/dL (74-106); POTASSIUM - SERUM 4.2 mmol/L (3.5-5.1); PROTEIN - SERUM 7.9 g/dL (6.4-8.2); SODIUM 130 mmol/L (136-145); UREA NITROGEN 7 mg/dL (7-18); eGFR NON AFRICAN AMERICAN > 90 mL/min (90-120)
[2018-05-10 17:28] LABS: EOSINOPHILS 5 % (0-7); LYMPHOCYTES 61 % (15-50); MONOCYTES 1 % (2-11); NEUTROPHILS 33 % (40-80); PLATELET ESTIMATE NORMAL
== END 2018-05-11 05:25 | disposition home or self-care (01) ==
LOC: D.ER 15:54
PROVIDERS: Emergency Medicine
DX: F10.129 Alcohol abuse with intoxication, unspecified (principal); F41.9 Anxiety disorder, unspecified; F32.9 Major depressive disorder, single episode, unspecified; I10 Essential (primary) hypertension; F17.200 Nicotine dependence, unspecified, uncomplicated; Z86.59 Personal history of other mental and behavioral disorders

== ENCOUNTER 2018-07-20 16:26 | Inpatient (IN) | payer MEDICARE ==
[~2018-07-20] VITALS: Ht 165.1 cm; Wt 63.6 kg
[2018-07-20 17:13] LABS: APPEARANCE HAZY (CLEAR); BILIRUBIN NEGATIVE (NEGATIVE); COLOR STRAW (YELLOW); GLUCOSE NEGATIVE (NEGATIVE); KETONE NEGATIVE (NEGATIVE); NITRITE NEGATIVE (NEGATIVE); PROTEIN TRACE mg/dL (NEGATIVE); UROBILINOGEN NORMAL (NORMAL)
[2018-07-20 17:14] LABS: BACTERIA MODERATE /hpf (NONE SEEN); EPITHELIAL CELLS 0-5 /hpf (0-5); RED CELLS - URINE 0-5 /hpf (0-5)
[2018-07-20 17:23] LABS: BASOPHILS 0.3 % (0-2); EOSINOPHILS 1.7 % (0-7); HEMATOCRIT 31.2 % (42.0-54.0); HEMOGLOBIN 10.9 g/dL (13.5-17.5); IMMATURE GRANULOCYTES 0.1 % (0-5); LYMPHOCYTES 34.1 % (15-50); MCHC 34.9 g/dL (31.0-37.0); MCV 91.5 fL (80.0-100.0); MEAN PLATELET VOLUME 8.8 fL (7.4-10.4); MONOCYTES 7.2 % (2-11); NEUTROPHILS 56.6 % (40-80); PLATELET COUNT 276 10x3/uL (130-400); RBC 3.41 10x6/uL (4.20-6.10); RDW 13.5 % (11.5-14.5); WBC 6.9 10x3/uL (4.8-10.8)
[2018-07-20 17:50] LABS: ALBUMIN 2.7 g/dL (3.4-5.0); ANION GAP 16.8 mmol/L (8-16); BILIRUBIN - TOTAL 0.19 mg/dL (0.2-1.3); CALCIUM 8.1 mg/dL (8.5-10.1); CARBON DIOXIDE 23.4 mmol/L (21.0-32.0); CREATININE - SERUM 1.4 mg/dL (0.6-1.3); MAGNESIUM - SERUM 1.3 mg/dL (1.8-2.4); POTASSIUM - SERUM 4.2 mmol/L (3.5-5.1); PROTEIN - SERUM 7.2 g/dL (6.4-8.2)
[2018-07-20] MEDS ORDERED: GEODON60 MG PO (20:52)
[2018-07-20 23:00] VITALS: BP 137/77
[2018-07-21] VITALS (24 sets, daily range): BP systolic 120–157; BP diastolic 65–97
[2018-07-21 03:49] LABS: BASOPHILS 0.5 % (0-2); EOSINOPHILS 2.1 % (0-7); HEMATOCRIT 32.1 % (42.0-54.0); IMMATURE GRANULOCYTES 0.2 % (0-5); LYMPHOCYTES 28.1 % (15-50); MCH 31.8 pg (26.0-34.0); MCHC 34.3 g/dL (31.0-37.0); MCV 92.8 fL (80.0-100.0); MEAN PLATELET VOLUME 8.9 fL (7.4-10.4); MONOCYTES 16.6 % (2-11); NEUTROPHILS 52.5 % (40-80); PLATELET COUNT 276 10x3/uL (130-400); RBC 3.46 10x6/uL (4.20-6.10); RDW 13.8 % (11.5-14.5); WBC 6.3 10x3/uL (4.8-10.8)
[2018-07-21 04:38] LABS: ANION GAP 16.3 mmol/L (8-16); CALCIUM 8.6 mg/dL (8.5-10.1); CARBON DIOXIDE 24.6 mmol/L (21.0-32.0); CREATININE - SERUM 1.5 mg/dL (0.6-1.3)
[2018-07-21 04:39] LABS: POTASSIUM - SERUM 4.9 mmol/L (3.5-5.1)
[2018-07-22] VITALS (23 sets, daily range): BP systolic 121–166; BP diastolic 46–91; BMI 22.5
[2018-07-22 18:50] LABS: BASOPHILS 0.2 % (0-2); EOSINOPHILS 3.7 % (0-7); HEMATOCRIT 30.3 % (42.0-54.0); HEMOGLOBIN 9.9 g/dL (13.5-17.5); IMMATURE GRANULOCYTES 0.1 % (0-5); LYMPHOCYTES 31.1 % (15-50); MCH 31.6 pg (26.0-34.0); MCHC 32.7 g/dL (31.0-37.0); MONOCYTES 16.9 % (2-11); PLATELET COUNT 249 10x3/uL (130-400); RBC 3.13 10x6/uL (4.20-6.10)
[2018-07-22 18:53] LABS: MCV 96.8 fL (80.0-100.0); WBC 8.1 10x3/uL (4.8-10.8)
[2018-07-22 19:53] LABS: ALBUMIN 2.6 g/dL (3.4-5.0); ANION GAP 13.3 mmol/L (8-16); BILIRUBIN - TOTAL 0.09 mg/dL (0.2-1.3); CREATININE - SERUM 1.4 mg/dL (0.6-1.3); POTASSIUM - SERUM 4.3 mmol/L (3.5-5.1); PROTEIN - SERUM 6.1 g/dL (6.4-8.2)
[2018-07-23] VITALS (17 sets, daily range): BP systolic 131–183; BP diastolic 49–106; Ht 165.1 cm; Wt 63.6 kg
[2018-07-23 10:20] LABS: FOLATE (FOLIC ACID) - SERUM >20.0 ng/mL (>3.0)
--- NOTE | 2018-07-23 12:02 | CN ---
PATIENT NAME:CONNIE LYON MEDICAL RECORD: [id number] : [birth year] LOCATION:MARK.2307 ADMIT DATE: 07/20/18 ACCOUNT: [id number] CONSULTING PHYSICIAN: JOANA HERNANDEZ MD REFERRING PHYSICIAN: MICHEAL REYES MD DATE OF CONSULTATION: 07/22/2018 PSYCHIATRIC CONSULTATION IDENTIFYING DATA: The patient is 52 years old. He is admitted to the hospital on a voluntary basis. CHIEF COMPLAINT: Suicidal thoughts. HISTORY OF PRESENT ILLNESS: The patient drinks a great deal. He is homeless and chronically mentally ill. He has been having some suicidal thoughts, which he says are now mostly gone and he is wanting to kill others. He will not say who. He will say that it is because people have "wronged him." He denies psychotic symptoms and says that he is planning to slow down on his alcohol abuse. ASSESSMENT: 1. Schizophrenia. 2. Alcohol abuse. PLAN: At this time, the patient is having suicidal and homicidal thoughts. I think he is delusional, even though he is denying auditory and visual hallucinations. I would recommend he be transferred to inpatient psychiatric care once medically stabilized. He is agreeable to this plan. TRANSINT:[id number] Voice Confirmation ID: [id number] DOCUMENT ID: [id number] JOANA HERNANDEZ MD at 1202 CC: [id number] DICTATION DATE: 07/22/18 174 ENTRY LEVEL BUSINESS ANALYST: 07/23/18 0136 ADM IN [place] [id number] [place] [address]
--- NOTE | 2018-07-23 20:01 | [facility] ---
CASE MANAGEMENT DISCHARGE SUMMARY PATIENT: CONNIE LYON UNIT: [id number] ADM DATE: 07/20/18 AGE: 52 : 64 SEX: M ROOM/BED: D.2307 AUTHOR: CARLOS ALBERTODOC PHYSICIAN: REFERRING PHYSICIAN: MICHEAL REYES MD DATE OF SERVICE: 07/23/18 Discharge Plan Patient Name: CONNIE LYON Facility: [facility]:[place] : 1965 Planned Disposition: Psych facility Anticipated Discharge Date: Discharge Date: 07/23/2018 Expected LOS: Initial Reviewer: [email or web address] Initial Review Date: 07/23/2018 Generated: 07/23/18 9:00 pm Comments DCP- Discharge Planning Updated by [email or web address]: Sherita Cruz on 07/23/18 6:[address] LATE ENTRY 07/23/18 @ 1500 Patient Name: CONNIE LYON Admission Status: ER Accout number: [id number] Admission Date: 07-20-2018 : 1965 Admission Diagnosis:SUICIDAL IDEATIONS Attending: MICHEAL REYES Current LOS: 3 Anticipated DC Date: Planned Disposition: Psych facility Primary Insurance: MEDICARE A & B Discharge Planning Comments: CM MET WITH PATIENT AT BEDSIDE. PATIENT IS VOLUNTARY FOR ADMISSION INTO INPATIENT PSYCHIATRIC FACILITY. PATIENT INFORMATION SENT TO TRANSFER CENTER FOR PLACEMENT. CM NOTIFIED THAT PATIENT WAS ACCEPTED TO [facility] IN [place]. NURSING CALLED REPORT AND AMBULANCE TO TRANSFER PATIENT TO FACILITY. IMM EXPLAINED AND SERVED 07/23/18 @1505. CM WILL CONTINUE TO FOLLOW AND ASSIST NEEDED WITH DISCHARGE PLANNING / NEEDS. Cell Biology Scientist: Sherita Cruz External Providers External Provider: [facility] Next Contact Date: Service Request Date: Service Type: Resolution: Reviewer: Comments: Coverage Notice Reviewer: [id number] - Sherita Cruz Notice Issued Date-Time: 07/23/2018 15:05 Notice Type: IM Discharge Notice Notice Delivered To: Patient Relationship to Patient: Self Esthetician/Spa Coordinator Name: Delivery Method: HAND - Hand Delivered Lashanda Days: Prior Verbal Notification: Recipient Understood Notice: Yes Recipient Signature: Yes Med Rec Note Co-signed by Attending: Coverage Notice Comment: Patient Name: CONNIE LYON Page [phone] at 2001 All edits/amendments must be made on the electronic document DICTATION DATE: 07/23/181999 WEDDING CONSULTANT: SALOMON 07/23/181999 RPT#: [id number] DC DATE:07/23/18 STATUS: DIS IN [facility] [address] [place] [address] END OF REPORT
== END 2018-07-23 19:04 | DRG 641 ==
LOC: D.ER 16:26 → D.ICU 19:43 → D.EDHOLD 19:43 → D.ICU 19:43
PROVIDERS: Emergency Medicine; Family Medicine; ADMIT Internal Medicine Nephrology
DX: E87.1 Hypo-osmolality and hyponatremia (principal); R45.851 Suicidal ideations; F17.203 Nicotine dependence unspecified, with withdrawal; E44.0 Moderate protein-calorie malnutrition; N39.0 Urinary tract infection, site not specified; F31.9 Bipolar disorder, unspecified; F10.129 Alcohol abuse with intoxication, unspecified; D64.9 Anemia, unspecified; I12.9 Hypertensive chronic kidney disease with stage 1 through stage 4 chronic kidney disease, or unspecified chronic kidney disease; N18.3 Chronic kidney disease, stage 3 (moderate); E83.42 Hypomagnesemia; Z68.21 Body mass index [BMI] 21.0-21.9, adult

== ENCOUNTER 2018-08-14 18:49 | Emergency (ER) | payer MEDICARE ==
[~2018-08-14] VITALS: Ht 165.1 cm; Wt 65.9 kg
[2018-08-14 19:06] VITALS: Ht 165.1 cm; Wt 65.9 kg
[2018-08-14 19:38] LABS: BASOPHILS 0.4 % (0-2); EOSINOPHILS 2.2 % (0-7); HEMATOCRIT 32.7 % (42.0-54.0); HEMOGLOBIN 11.6 g/dL (13.5-17.5); IMMATURE GRANULOCYTES 0.1 % (0-5); LYMPHOCYTES 29.9 % (15-50); MCH 31.9 pg (26.0-34.0); MCHC 35.5 g/dL (31.0-37.0); MCV 89.8 fL (80.0-100.0); MEAN PLATELET VOLUME 9.5 fL (7.4-10.4); MONOCYTES 8.1 % (2-11); NEUTROPHILS 59.3 % (40-80); PLATELET COUNT 263 10x3/uL (130-400); RBC 3.64 10x6/uL (4.20-6.10); RDW 13.6 % (11.5-14.5); WBC 8.6 10x3/uL (4.8-10.8)
[2018-08-14 19:55] LABS: ALBUMIN 3.1 g/dL (3.4-5.0); ANION GAP 15.5 mmol/L (8-16); BILIRUBIN - TOTAL 0.27 mg/dL (0.2-1.3); CALCIUM 7.7 mg/dL (8.5-10.1); CARBON DIOXIDE 23.6 mmol/L (21.0-32.0); CREATININE - SERUM 1.5 mg/dL (0.6-1.3); POTASSIUM - SERUM 4.1 mmol/L (3.5-5.1); PROTEIN - SERUM 7.4 g/dL (6.4-8.2)
[2018-08-14 19:56] LABS: MAGNESIUM - SERUM 1.4 mg/dL (1.8-2.4)
[2018-08-14 20:10] LABS: APPEARANCE CLEAR (CLEAR); BILIRUBIN NEGATIVE (NEGATIVE); COLOR YELLOW (YELLOW); GLUCOSE NEGATIVE (NEGATIVE); KETONE NEGATIVE (NEGATIVE); NITRITE NEGATIVE (NEGATIVE); PROTEIN NEGATIVE (NEGATIVE); UROBILINOGEN NORMAL (NORMAL)
[2018-08-14 20:11] LABS: BACTERIA FEW /hpf (NONE SEEN); RED CELLS - URINE 0-5 /hpf (0-5)
[2018-08-14 20:23] LABS: UDS - AMPHET NEGATIVE QUAL (NEGATIVE); UDS - BARB NEGATIVE QUAL (NEGATIVE); UDS - BENZO NEGATIVE QUAL (NEGATIVE); UDS - COCAINE NEGATIVE QUAL (NEGATIVE); UDS - OPIATE NEGATIVE QUAL (NEGATIVE); UDS - PCP NEGATIVE QUAL (NEGATIVE); UDS - THC NEGATIVE QUAL (NEGATIVE)
[2018-08-15 03:29] VITALS: BP 118/70
== END 2018-08-15 08:29 ==
LOC: D.ER 18:49
PROVIDERS: Family Medicine
DX: R44.1 Visual hallucinations (principal)

== ENCOUNTER 2018-08-28 12:42 | Emergency (ER) | payer MEDICARE ==
[~2018-08-28] VITALS: Ht 165.1 cm; Wt 68.2 kg
[2018-08-28 13:04] VITALS: Ht 165.1 cm; Wt 68.2 kg
[2018-08-28 14:24] LABS: BASOPHILS 0.7 % (0-2); EOSINOPHILS 4.3 % (0-7); HEMATOCRIT 37.5 % (42.0-54.0); HEMOGLOBIN 12.7 g/dL (13.5-17.5); LYMPHOCYTES 36.8 % (15-50); MCH 31.8 pg (26.0-34.0); MCHC 33.9 g/dL (31.0-37.0); MCV 93.8 fL (80.0-100.0); MEAN PLATELET VOLUME 9.4 fL (7.4-10.4); MONOCYTES 10.3 % (2-11); NEUTROPHILS 47.9 % (40-80); PLATELET COUNT 242 10x3/uL (130-400); RDW 14.2 % (11.5-14.5); WBC 5.8 10x3/uL (4.8-10.8)
[2018-08-28 14:39] LABS: ALBUMIN 3.9 g/dL (3.4-5.0); ANION GAP 16.3 mmol/L (8-16); BILIRUBIN - TOTAL 0.24 mg/dL (0.2-1.3); CALCIUM 8.9 mg/dL (8.5-10.1); CARBON DIOXIDE 26.4 mmol/L (21.0-32.0); CREATININE - SERUM 1.3 mg/dL (0.6-1.3); POTASSIUM - SERUM 4.7 mmol/L (3.5-5.1); PROTEIN - SERUM 8.1 g/dL (6.4-8.2)
[2018-08-28 16:02] VITALS: BP 134/67
== END 2018-08-28 16:00 | disposition home or self-care (01) ==
LOC: D.ER 12:42
PROVIDERS: Emergency Medicine
DX: R51 Headache (principal); Z76.5 Malingerer [conscious simulation]

== ENCOUNTER 2018-08-31 13:11 | Inpatient (IN) | payer MEDICARE ==
[~2018-08-31] VITALS: Ht 165.1 cm; Wt 62.1 kg
--- NOTE | 2018-08-31 14:04 | NUR ---
PT NOW STATES HE WANTS TO BE PLACED IN A PSYCH FACILITY. STATES HE IS SUICIDAL. NOTIFIED OF PTS CHANGE OF HEART.
[2018-08-31 14:08] LABS: APPEARANCE CLEAR (CLEAR); BILIRUBIN NEGATIVE (NEGATIVE); COLOR YELLOW (YELLOW); GLUCOSE NEGATIVE (NEGATIVE); KETONE NEGATIVE (NEGATIVE); NITRITE NEGATIVE (NEGATIVE); PROTEIN NEGATIVE (NEGATIVE); UROBILINOGEN NORMAL (NORMAL)
[2018-08-31 14:19] LABS: BASOPHILS 0.5 % (0-2); EOSINOPHILS 0.9 % (0-7); HEMATOCRIT 34.8 % (42.0-54.0); HEMOGLOBIN 12.3 g/dL (13.5-17.5); IMMATURE GRANULOCYTES 0.2 % (0-5); LYMPHOCYTES 40.4 % (15-50); MCH 31.6 pg (26.0-34.0); MCHC 35.3 g/dL (31.0-37.0); MCV 89.5 fL (80.0-100.0); MEAN PLATELET VOLUME 8.7 fL (7.4-10.4); MONOCYTES 8.5 % (2-11); NEUTROPHILS 49.5 % (40-80); PLATELET COUNT 273 10x3/uL (130-400); RBC 3.89 10x6/uL (4.20-6.10); RDW 13.7 % (11.5-14.5); WBC 5.5 10x3/uL (4.8-10.8)
[2018-08-31 14:24] LABS: UDS - AMPHET NEGATIVE QUAL (NEGATIVE); UDS - BARB NEGATIVE QUAL (NEGATIVE); UDS - BENZO NEGATIVE QUAL (NEGATIVE); UDS - COCAINE NEGATIVE QUAL (NEGATIVE); UDS - OPIATE NEGATIVE QUAL (NEGATIVE); UDS - PCP NEGATIVE QUAL (NEGATIVE); UDS - THC NEGATIVE QUAL (NEGATIVE)
[2018-08-31 14:40] LABS: ACETAMINOPHEN 0.4 ug/mL (10.0-30.0); ALBUMIN 3.8 g/dL (3.4-5.0); BILIRUBIN - TOTAL 0.39 mg/dL (0.2-1.3); CALCIUM 8.5 mg/dL (8.5-10.1); CARBON DIOXIDE 25.5 mmol/L (21.0-32.0); CREATININE - SERUM 1.3 mg/dL (0.6-1.3); POTASSIUM - SERUM 4.5 mmol/L (3.5-5.1)
--- NOTE | 2018-08-31 14:46 | NUR ---
LAB CALLED WITH CRITICAL NA 117, CHLORIDE 81. DR. RODRIGUEZ , ORDERS TO GIVE PT GATORADE, CALL TO DIETARY FOR SAME.
--- NOTE | 2018-08-31 15:49 | NUR ---
START TO CALL FOR PLACEMENT. [facility], HAD NO ROOM FOR THIS PT. WAITING SENIOR STAFF PSYCHOLOGIST BACK FROM [facility].
--- NOTE | 2018-08-31 15:58 | NUR ---
MICHELE CALLED BACK, STATES UNTIL HIS LABS ARE WITHIN NORMAL LIMITS THEY WILL NOT BE ABLE TO ACCEPT HIM.
--- NOTE | 2018-08-31 16:06 | NUR ---
[facility] NOTIFIED OF PT. FOR PLACEMENT , FAXED INFORMATION TO THEM WITH A HEADS UP ABOUT ALTERED LAB VALUES.
--- NOTE | 2018-08-31 16:21 | NUR ---
PT GOING TO BE AN ADMIT TO THE HOSPITAL , FOR DR. REYES.
[2018-08-31 18:48] VITALS: BP 126/72
--- NOTE | 2018-08-31 19:14 | NUR ---
REPORT FROM UMANG WEBB. PT RESTING QUIETLY WITH EYES CLOSED. IV INFUSING WITH NO SIGNS OF INFILTRATION.
--- NOTE | 2018-08-31 19:15 | NUR ---
PREVIOUS ENTRY DONE UNDER UMANG WEBB'S SIGN IN- BUT WAS DONE BY THIS NURSE.
[2018-08-31 19:30] VITALS: BP 132/65
--- NOTE | 2018-08-31 19:47 | NUR ---
PT RESTING QUIETLY WITH EYES CLOSED.
[2018-08-31 21:00] VITALS: BP 132/85
--- NOTE | 2018-08-31 21:20 | NUR ---
PT REC'D TO ROOM 2313 VIA STRETCHER, PT MOVED TO BED AND ALL MONITORS ESTABLISHED, PT AWAKE, ALERT, AND ORIETNED X 4 AT THIS TIME, COMPLAINS OF "NOT FEELING RIGHT AND MY HEAD HURTS", PT REPORTS NOT SLEEPING FOR 2-3 DAYS, RIGHT HAND PIV WITH NS @ 1O0 CC/HR, PT REQUESTING URINAL, URINAL PROVIDED AND CALL LIGHT PLACED IN REACH.
[2018-08-31 21:43] VITALS: BP 132/65; BMI 23.1
--- NOTE | 2018-08-31 21:50 | NUR ---
URINAL EMPTIED OF 200CC CLEAR YELLOW URINE, PT MAEE, SMALL OPEN SORES NOTED TO TOP OF LEFT SCALP, PT STATES HE LIVES ALONE AND HAS NO ONE TO CONTACT IN CASE OF AN EMERGENCY, PT DENIES FURTHER NEEDS, SR UP X 2, CALL LIGHT IN REACH, VISIBLE TO NURSES STATION.
[2018-08-31 22:00] VITALS: BP 130/81
[2018-08-31] MEDS ORDERED: CHLORPROMAZINE200 MG PO (22:09)
[2018-08-31] MEDS ORDERED: NEURONTIN800 MG PO (22:11)
[2018-08-31] MEDS ORDERED: THERAGRAN M [BK1 TAB PO (22:11)
[2018-08-31] MEDS ORDERED: TENORMIN50 MG PO (22:12)
[2018-08-31] MEDS ORDERED: KRILL OIL 1,001 EAC1 PO (22:13)
[2018-08-31 23:00] VITALS: BP 125/80
[2018-09-01] VITALS (24 sets, daily range): BP systolic 103–165; BP diastolic 43–99; Ht 165.1 cm; Wt 62.1 kg
--- NOTE | 2018-09-01 | NUR ---
PT RESTING IN BED, EYES CLOSED, RESP EVEN AND UNLABORED, VSS.
--- NOTE | 2018-09-01 02:30 | NUR ---
NO CHANGES IN STATUS AT THIS TIME
[2018-09-01 03:16] LABS: ANION GAP 12.7 mmol/L (8-16); CARBON DIOXIDE 24.8 mmol/L (21.0-32.0); CREATININE - SERUM 1.3 mg/dL (0.6-1.3); POTASSIUM - SERUM 4.5 mmol/L (3.5-5.1)
[2018-09-01 03:18] LABS: BASOPHILS 0.8 % (0-2); EOSINOPHILS 3.4 % (0-7); HEMATOCRIT 32.5 % (42.0-54.0); HEMOGLOBIN 11.2 g/dL (13.5-17.5); MCH 31.3 pg (26.0-34.0); MCHC 34.5 g/dL (31.0-37.0); MCV 90.8 fL (80.0-100.0); MEAN PLATELET VOLUME 9.2 fL (7.4-10.4); MONOCYTES 20.4 % (2-11); NEUTROPHILS 30.4 % (40-80); PLATELET COUNT 243 10x3/uL (130-400); RBC 3.58 10x6/uL (4.20-6.10); RDW 13.8 % (11.5-14.5)
[2018-09-01 03:24] LABS: WBC 3.5 10x3/uL (4.8-10.8)
--- NOTE | 2018-09-01 03:30 | NUR ---
REASSESSMENT COMPLETED, URINAL EMPTIED OF 1000CC CLEAR YELLOW URINE, PT RESTING EYES CLOSED, VSS.
--- NOTE | 2018-09-01 05:20 | NUR ---
PT RESTING ON SIDE, RESP EVEN AND UNLABORED, VSS.
--- NOTE | 2018-09-01 08:21 | NUR ---
UP IN BED EATING BREAKFAST AT THIS TIME. DENIES ANY NEEDS. NO ACUTE DISTRESS NOTED. PT ALERT AND ORIENTED. CALL LIGHT IN REACH. USES URINAL. WILL CONTINUE PLAN OF CARE.
--- NOTE | 2018-09-01 10:18 | NUR ---
UP IN BED AWAKE AT THIS TIME. DIANE ANY NEEDS. CALL LIGHT IN REACH. PT ALSO STATES IS IS ACTUALLY NOT CURRENTLY SUICIDAL HE JUST WANTS HELP WITH GETTING HIS MEDICATIONS. NO ACUTE DISTRESS NOTED. WILL CONTINUE PLAN OF CARE.
--- NOTE | 2018-09-01 11:38 | NUR ---
NOTED CONSULT WITH PSYCH FOR SUICIDE IDEATION. ORDER FAXED TO RETIREMENT, CONFIRMATION OF FAX RECIEVED.
--- NOTE | 2018-09-01 13:29 | NUR ---
LYING IN BED RESTING AT THIS TIME. REPSIRATIONS STEADY AND UNLABORED. AWAKENS WHEN SPOKEN TO. DENIES ANY NEEDS. WILL CONTINUE PLAN OF CARE.
--- NOTE | 2018-09-01 16:48 | NUR ---
MED LIST RECIEVED FROM [facility] PER ORDERS AND PLACED TO RECONSILED MED LIST. DR REYES NOTIFIED OF THIS AND STATED TO RESTART ALL HOME MEDS FROM [facility]. WILL CONTINUE PLAN OF CARE.
--- NOTE | 2018-09-01 17:39 | NUR ---
PHARMACY CONFIRMED WITH PT STATED IS [facility] IN [place] PER PT.
--- NOTE | 2018-09-01 19:15 | NUR ---
REPORT RECIEVED, INITIAL ASSESSMENT COMPLETE PER FLOW SHEET, PT AAOx4 ABLE TO AMSWER QUESTIONS AND MAKE NEEDS KNOWN, DENIES PAIN OR NEEDS AT THIS TIME, PIV INFUSING MEDS PER MAR/ORDERS, PT ABLE TO REPOSITION SELF FREQUENTLY FOR COMFORT, PT IS CALM AND COOPERATIVE, MEDS GIVEN PER MAR/ORDERS, VSS, WILL CONTINUE TO MONITOR
--- NOTE | 2018-09-01 21:00 | NUR ---
PT RESTING WITH EYES CLOSED, WAKES WITH MINIMAL STIMULI, AAOx4, DENIES PAIN OR NEEDS, REPOSITIONS WITHOUT ASSIST FREQUENTLY, VSS
--- NOTE | 2018-09-01 23:00 | NUR ---
REASSESSMENT COMPLETE PER FLOW SHEET, NO ACUTE CHANGE NOTED, PT DENIES NEEDS OR PAIN, VSS, MEDS INFUSING PER MAR/ORDERS, WILL CONT TO MONITOR
[2018-09-02] VITALS (21 sets, daily range): BP systolic 103–155; BP diastolic 63–92
--- NOTE | 2018-09-02 01:00 | NUR ---
PT RESTING COMFORTABLE IN BED, NO ACUTE S/S OF DISTRESS NOTED, WAKES WITH MINIMAL STIMULI, AAOx4, VSS, REPOSITIONED FOR COMFORT, WILL CONT TO MONITOR
--- NOTE | 2018-09-02 03:00 | NUR ---
PT SLEEPING COMFORTABLY IN BED, ABLE TO WAKE WITH VERBAL STIMULI, ANSWERES ALL QUESTIONS, DENIES PAIN OR NEEDS AT THIS TIME, VSS, MEDS INFUSING PER MAR/ORDERS, WILL CONTINUE TO MONITOR
[2018-09-02 04:29] LABS: BASOPHILS 0.8 % (0-2); EOSINOPHILS 6.1 % (0-7); HEMATOCRIT 30.3 % (42.0-54.0); HEMOGLOBIN 10.2 g/dL (13.5-17.5); LYMPHOCYTES 44.9 % (15-50); MCH 31.5 pg (26.0-34.0); MCHC 33.7 g/dL (31.0-37.0); MEAN PLATELET VOLUME 9.7 fL (7.4-10.4); MONOCYTES 15.2 % (2-11); PLATELET COUNT 243 10x3/uL (130-400); RBC 3.24 10x6/uL (4.20-6.10); RDW 14.2 % (11.5-14.5)
[2018-09-02 04:40] LABS: MCV 93.5 fL (80.0-100.0)
[2018-09-02 04:46] LABS: ANION GAP 10.7 mmol/L (8-16); CALCIUM 8.2 mg/dL (8.5-10.1); CARBON DIOXIDE 26.3 mmol/L (21.0-32.0); CREATININE - SERUM 1.2 mg/dL (0.6-1.3)
--- NOTE | 2018-09-02 07:00 | NUR ---
ASSESSMENT COMPLETE PER FLOWSHEET. VOICES NO CO AT TIME.
--- NOTE | 2018-09-02 10:49 | NUR ---
SITTING UP IN BED EATING A SANDWICH.
--- NOTE | 2018-09-02 12:00 | NUR ---
EATING LUNCH NO CO AT TIME.
[2018-09-03] VITALS (9 sets, daily range): BP systolic 123–143; BP diastolic 69–91
--- NOTE | 2018-09-03 05:46 | NUR ---
PATIENT DECLINES BATH AT THIS TIME STATES IT IS TO COLD FOR HIM TO GET UP AT THIS TIME.
[2018-09-03] MEDS ORDERED: Nicoderm [PBKC] TRANSDERM (11:13)
[2018-09-03] MEDS ORDERED: DESERYL PO (11:13)
[2018-09-03] MEDS ORDERED: THORAZINE50 MG PO (11:13)
[2018-09-03] MEDS ORDERED: NEURONTIN 400400 MG PO (11:13)
[2018-09-03] MEDS ORDERED: TENORMIN50 MG PO (11:13)
--- NOTE | 2018-09-03 11:20 | NUR ---
DR MON HERE DC ORDERS OBTAINED. DC DONE. RX GIVEN TO PT. VOICES NO QUESTIONS AT TIME. IV DCD WITH CATH INTACT. LEFT VIA SELF.
--- NOTE | 2018-09-03 11:36 | CN ---
PATIENT NAME:CONNIE LYON MEDICAL RECORD: [id number] : 63 LOCATION:SAMANTH[facility].2313 ADMIT DATE: 09/01/18 ACCOUNT: [id number] CONSULTING PHYSICIAN: JOANA HERNANDEZ MD REFERRING PHYSICIAN: MICHEAL REYES MD DATE OF CONSULTATION: 09/02/2018 IDENTIFYING DATA: The patient is 52 years old and he is admitted to the hospital on a voluntary basis. CHIEF COMPLAINT: Questionable suicidal thoughts. HISTORY OF PRESENT ILLNESS: The patient is clearly a psychiatric patient. I am not sure I understand why he was admitted to the hospital other than from the fact that he said that he was homeless, wanted to hurt himself, and has run out of his psychiatric meds. He tells me that he is no longer suicidal because his social security check came in today and he wants to leave the hospital and get access to it. He says he drinks quite a bit, but he is evasive about how much. He has regular problems with hyponatremia, but he is supposed to take sodium tablets. He tells me he drinks a lot of beer, so the probable etiology of the hyponatremia is his beer consumption. He is completely lucid and fully oriented. He has a euthymic mood. Clearly, he is being somewhat manipulative, saying that he was suicidal and homeless; and now that his check has arrived, saying that he is not wanting to leave. I am not entirely sure he has a legitimate psychiatric history, although he says he has been diagnosed with schizophrenia, bipolar disorder, and depression. I do not have any records available obviously, but he clearly looks like a below average intelligence alcoholic. No psychotic symptoms at this point and I do not see any evidence of kyle or even depression. ASSESSMENT: 1. Malingering. 2. Alcohol abuse. 3. 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 PLAN: At this time, I would recommend the patient be released from the hospital. I see no reason for any psychiatric meds based on the information that I have. I do believe he is in need of substance abuse treatment and would benefit by going to a homeless [facility] or some other program that would help him stabilize socially, but he has no interest in this. Again, he has no evidence of acute dangerousness or suicidality. He says he sees a psychiatrist in [place], but does not know his name or where he is located or at least he is unable to tell me this, even though the rest of his mental status exam is normal. I would recommend he follow up with that individual and that he be released at your earliest convenience unless there is some nonpsychiatric reason for keeping him here. TRANSINT:[id number] Voice Confirmation ID: [id number] DOCUMENT ID: [id number] CONSULT REPORT [id number] CONNIE LYON, JOANA CHATMAN at 1136 CC: [id number] DICTATION DATE: 09/02/181706 LEATHER CARTRIDGE BELT MAKER: 09/02/181922 ADM IN [facility] [address] [place] [address]
--- NOTE | 2018-09-03 19:28 | [facility]ORECARE ---
CASE MANAGEMENT DISCHARGE SUMMARY PATIENT: CONNIE LYON UNIT: [id number] ADM DATE: 09/01/18 AGE: 52 : 63 SEX: M ROOM/BED: D.2313 AUTHOR: GODWIN CARCAMO PHYSICIAN: REFERRING PHYSICIAN: MICHEAL REYES MD DATE OF SERVICE: 09/03/18 Discharge Plan Patient Name: CONNIE LYON Facility: [facility]:[place] : 1965 Planned Disposition: Anticipated Discharge Date: Discharge Date: 09/03/2018 Expected LOS: Initial Reviewer: [email or web address] Initial Review Date: 08/31/2018 Generated: 09/03/18 8:28 pm Patient Name: CONNIE LYON Page [phone] at 1928 All edits/amendments must be made on the electronic document DICTATION DATE: 09/03/181926 BUSINESS OWNER/ENGINEER: SALOMON 09/03/181926 RPT#: [id number] DC DATE:09/03/18 STATUS: DIS IN [facility] [address] [place] [address] END OF REPORT
== END 2018-09-03 11:46 | disposition home or self-care (01) | DRG 641 ==
LOC: D.ER 13:11 → OBSVTIME 16:20 → D.EDHOLD 16:20 → D.ICU 16:20
PROVIDERS: Family Medicine; ADMIT Internal Medicine Nephrology; ATTEND Internal Medicine Nephrology
DX: E87.1 Hypo-osmolality and hyponatremia (principal); F17.203 Nicotine dependence unspecified, with withdrawal; D64.9 Anemia, unspecified; R63.1 Polydipsia; F10.10 Alcohol abuse, uncomplicated; Z59.0 Homelessness; Z76.5 Malingerer [conscious simulation]

== ENCOUNTER 2018-09-13 12:02 | Emergency (ER) | payer MEDICARE ==
[~2018-09-13] VITALS: Ht 165.1 cm; Wt 61.7 kg
[~2018-09-13 12:02] MED LIST changes: +CHLORPROMAZINE200 MG PO; +DESERYL PO; +KRILL OIL 1,001 EAC1 PO; +NEURONTIN 400400 MG PO; +NEURONTIN800 MG PO; +Nicoderm [PBKC] TRANSDERM; +THERAGRAN M [BK1 TAB PO; +THORAZINE50 MG PO
[2018-09-13 12:05] VITALS: Ht 165.1 cm; Wt 61.7 kg
[2018-09-13 13:03] LABS: ALBUMIN 3.2 g/dL (3.4-5.0); ANION GAP 13.8 mmol/L (8-16); BILIRUBIN - TOTAL 0.16 mg/dL (0.2-1.3); CALCIUM 8.2 mg/dL (8.5-10.1); CARBON DIOXIDE 26.7 mmol/L (21.0-32.0); CREATININE - SERUM 1.4 mg/dL (0.6-1.3); POTASSIUM - SERUM 4.5 mmol/L (3.5-5.1); PROTEIN - SERUM 7.2 g/dL (6.4-8.2)
[2018-09-13] MEDS ORDERED: ZANTAC300 MG PO (14:13)
[2018-09-13 14:20] LABS: BASOPHILS 0.6 % (0-2); EOSINOPHILS 2.7 % (0-7); HEMATOCRIT 31.7 % (42.0-54.0); HEMOGLOBIN 11.1 g/dL (13.5-17.5); IMMATURE GRANULOCYTES 0.2 % (0-5); LYMPHOCYTES 43.2 % (15-50); MCH 30.7 pg (26.0-34.0); MCV 87.8 fL (80.0-100.0); MEAN PLATELET VOLUME 8.7 fL (7.4-10.4); MONOCYTES 8.8 % (2-11); NEUTROPHILS 44.5 % (40-80); PLATELET COUNT 270 10x3/uL (130-400); RBC 3.61 10x6/uL (4.20-6.10); RDW 13.4 % (11.5-14.5); WBC 4.8 10x3/uL (4.8-10.8)
[2018-09-13 15:42] VITALS: BP 139/92
== END 2018-09-13 15:44 | disposition home or self-care (01) ==
LOC: D.ER 12:02
PROVIDERS: Emergency Medicine
DX: F10.129 Alcohol abuse with intoxication, unspecified (principal); E87.1 Hypo-osmolality and hyponatremia

== ENCOUNTER 2018-09-16 18:34 | Inpatient (IN) | payer MEDICARE ==
[~2018-09-16 18:34] MED LIST changes: +ZANTAC300 MG PO
[2018-09-16 20:02] LABS: BASOPHILS 0.4 % (0-2); EOSINOPHILS 2.3 % (0-7); HEMATOCRIT 31.7 % (42.0-54.0); HEMOGLOBIN 11.6 g/dL (13.5-17.5); IMMATURE GRANULOCYTES 0.2 % (0-5); LYMPHOCYTES 43.2 % (15-50); MCH 31.4 pg (26.0-34.0); MCHC 36.6 g/dL (31.0-37.0); MCV 85.7 fL (80.0-100.0); MEAN PLATELET VOLUME 8.8 fL (7.4-10.4); MONOCYTES 11.8 % (2-11); NEUTROPHILS 42.1 % (40-80); PLATELET COUNT 229 10x3/uL (130-400); RDW 13.5 % (11.5-14.5); WBC 5.6 10x3/uL (4.8-10.8)
[2018-09-16 20:18] LABS: ALBUMIN 3.4 g/dL (3.4-5.0); ALKALINE PHOSPHATASE 88 U/L (46-116); ALT (SGPT) 32 U/L (10-68); AMYLASE - SERUM 50 U/L (25-115); BILIRUBIN - TOTAL 0.58 mg/dL (0.2-1.3); CREATININE - SERUM 1.1 mg/dL (0.6-1.3); GLUCOSE 92 mg/dL (74-106); LIPASE 124 U/L (73-393); MAGNESIUM - SERUM 1.4 mg/dL (1.8-2.4); POTASSIUM - SERUM 4.5 mmol/L (3.5-5.1); PROTEIN - SERUM 7.3 g/dL (6.4-8.2); TROPONIN-I < 0.017 ng/mL (0.000-0.060); UREA NITROGEN 8 mg/dL (7-18); eGFR NON AFRICAN AMERICAN 74 mL/min (90-120)
[2018-09-16 20:33] LABS: CALC OSMOLALITY 234 mosm/kg (275-300)
[2018-09-16 20:41] LABS: CHLORIDE - SERUM 82 mmol/L (98-107); SODIUM 117 mmol/L (136-145)
[2018-09-16 20:57] LABS: UDS - AMPHET NEGATIVE QUAL (NEGATIVE); UDS - BARB NEGATIVE QUAL (NEGATIVE); UDS - BENZO POSITIVE QUAL (NEGATIVE); UDS - COCAINE NEGATIVE QUAL (NEGATIVE); UDS - OPIATE NEGATIVE QUAL (NEGATIVE); UDS - PCP NEGATIVE QUAL (NEGATIVE); UDS - THC NEGATIVE QUAL (NEGATIVE)
[2018-09-16 21:15] LABS: APPEARANCE CLEAR (CLEAR); BACTERIA FEW /hpf (NONE SEEN); BILIRUBIN NEGATIVE (NEGATIVE); COLOR YELLOW (YELLOW); GLUCOSE NEGATIVE (NEGATIVE); KETONE NEGATIVE (NEGATIVE); NITRITE NEGATIVE (NEGATIVE); PROTEIN NEGATIVE (NEGATIVE); RED CELLS - URINE 0-5 /hpf (0-5); SPECIFIC GRAVITY 1.015 (1.005-1.020); UROBILINOGEN NORMAL (NORMAL); WHITE CELLS - URINE 0-5 /hpf (0-5)
[2018-09-17 02:06] VITALS: BP 125/78; BMI 25.8
[2018-09-17 04:00] VITALS: BP 127/77
[2018-09-17 05:35] LABS: BASOPHILS 0.5 % (0-2); EOSINOPHILS 5.5 % (0-7); HEMATOCRIT 33.5 % (42.0-54.0); HEMOGLOBIN 12.1 g/dL (13.5-17.5); IMMATURE GRANULOCYTES 0.3 % (0-5); LYMPHOCYTES 28.1 % (15-50); MCH 31.1 pg (26.0-34.0); MCHC 36.1 g/dL (31.0-37.0); MCV 86.1 fL (80.0-100.0); MEAN PLATELET VOLUME 8.6 fL (7.4-10.4); MONOCYTES 11.3 % (2-11); NEUTROPHILS 54.3 % (40-80); PLATELET COUNT 211 10x3/uL (130-400); RBC 3.89 10x6/uL (4.20-6.10); RDW 13.6 % (11.5-14.5)
[2018-09-17 05:52] LABS: ANION GAP 13.1 mmol/L (8-16); CALCIUM 8.1 mg/dL (8.5-10.1); CARBON DIOXIDE 26.7 mmol/L (21.0-32.0); CREATININE - SERUM 1.1 mg/dL (0.6-1.3); MAGNESIUM - SERUM 1.4 mg/dL (1.8-2.4)
[2018-09-17 06:05] LABS: POTASSIUM - SERUM 3.8 mmol/L (3.5-5.1)
[2018-09-17 06:10] LABS: WBC 3.8 10x3/uL (4.8-10.8)
[2018-09-17 09:34] VITALS: BP 131/73
[2018-09-17 13:38] VITALS: BP 149/86
[2018-09-17 14:07] VITALS: BMI 25.7
[2018-09-17 18:14] VITALS: BP 142/75
[2018-09-17 20:00] VITALS: BP 160/97
[2018-09-18 04:00] VITALS: BP 150/90
[2018-09-18 06:50] LABS: BASOPHILS 0.6 % (0-2); EOSINOPHILS 1.5 % (0-7); HEMATOCRIT 35.1 % (42.0-54.0); HEMOGLOBIN 12.1 g/dL (13.5-17.5); LYMPHOCYTES 38.4 % (15-50); MCHC 34.5 g/dL (31.0-37.0); MEAN PLATELET VOLUME 9.2 fL (7.4-10.4); NEUTROPHILS 40.5 % (40-80); PLATELET COUNT 174 10x3/uL (130-400); WBC 3.4 10x3/uL (4.8-10.8)
[2018-09-18 07:18] LABS: ALBUMIN 3.1 g/dL (3.4-5.0); BILIRUBIN - TOTAL 0.57 mg/dL (0.2-1.3); CALCIUM 8.5 mg/dL (8.5-10.1); CARBON DIOXIDE 22.3 mmol/L (21.0-32.0); CREATININE - SERUM 1.3 mg/dL (0.6-1.3); PROTEIN - SERUM 7.1 g/dL (6.4-8.2)
[2018-09-18 07:19] LABS: ANION GAP 20.4 mmol/L (8-16); POTASSIUM - SERUM 4.7 mmol/L (3.5-5.1)
[2018-09-18 09:37] VITALS: BP 160/80
[2018-09-18] MEDS ORDERED: FOLIC ACID1 MG PO (12:56)
[2018-09-18] MEDS ORDERED: SODIUM BICARBO650 MG PO (12:56)
[2018-09-18] MEDS ORDERED: VITAMIN B-1100 M1 PO (12:56)
[2018-09-18] MEDS ORDERED: TYLENOL PM1 TAB PO (12:58)
--- NOTE | 2018-09-18 13:25 | MORECARE ---
CASE MANAGEMENT DISCHARGE SUMMARY PATIENT: CONNIE LYON UNIT: [id number] ADM DATE: 09/16/18 AGE: 53 : 63 SEX: M ROOM/BED: D.2238 AUTHOR: CARLOS ALBERTO,DOC PHYSICIAN: REFERRING PHYSICIAN: MICHEAL REYES MD DATE OF SERVICE: 09/18/18 Discharge Plan Patient Name: CONNIE LYON Facility: [facility]:[place] : 1965 Planned Disposition: Home Anticipated Discharge Date: Discharge Date: Expected LOS: Initial Reviewer: [email or web address] Initial Review Date: 09/18/2018 Generated: 09/18/18 2:24 pm Comments DCP- Discharge Planning Updated by [email or web address]: Pratima Almodovar on 09/18/18 12:[address] Patient Name: CONNIE LYON Admission Status: ER Accout number: [id number] Admission Date: 09-16-2018 : 1965 Admission Diagnosis: Attending: MICHEAL REYES Current LOS: 2 Anticipated DC Date: Planned Disposition: Home Primary Insurance: MEDICARE A & B Discharge Planning Comments: CM met with patient to discuss discharge planning/needs, he is alone in the room. He is homeless, has been staying at [facility] and plans on returning there. States he will walk there at discharge. I gave him a bus ticket and informed him he will need to go to his pharmacy on [facility] to get his prescriptions and then can use the bus ticket to take him to [facility]. I also provided him with a local alcohol rehab list. He states he has been to [place] before. He is discharging today and agrees with discharge. CM will continue to follow and assist with discharge planning/needs. Career Technical Education Instructor: Pratima Almodovar DCPIA - Discharge Planning Initial Assessment Updated by [email or web address]: Pratima Almodovar on 09/18/18 1:19 pm * Is the patient Alert and Oriented? Yes * How many steps to enter\exit or inside your home? 0/0 * PCP None * [facility]acy [facility] * Preadmission Environment Homeless * Facility Name Staying at [facility] * ADLs Independent * Equipment None * Community resources currently utilized None * Additional services required to return to the preadmission environment? No * Can the patient safely return to the preadmission environment? Yes * Has this patient been hospitalized within the prior 30 days at any hospital? Yes Patient Name: CONNIE LYON Page [phone] at 1325 All edits/amendments must be made on the electronic document DICTATION DATE: 09/18/181323 INSURANCE CONSULTANT: SALOMON 09/18/181323 RPT#: [id number] DC DATE: STATUS: ADM IN [facility] [address] [place] [address] END OF REPORT
[2018-09-18 14:03] VITALS: BP 148/91
--- NOTE | 2018-09-19 10:59 | MORECARE ---
CASE MANAGEMENT DISCHARGE SUMMARY PATIENT: CONNIE LYON UNIT: [id number] ADM DATE: 09/16/18 AGE: 53 : 63 SEX: M ROOM/BED: D.2238 AUTHOR: CARLOS ALBERTODOC PHYSICIAN: REFERRING PHYSICIAN: MICHEAL REYES MD DATE OF SERVICE: 09/19/18 Discharge Plan Patient Name: CONNIE LYON Facility: [facility]:[place] : 1965 Planned Disposition: Home Anticipated Discharge Date: Discharge Date: 09/18/2018 Expected LOS: 0 Initial Reviewer: [email or web address] Initial Review Date: 09/18/2018 Generated: 09/19/18 11:59 am Comments DCP- Discharge Planning Updated by [email or web address]: Pratima Almodovar on 09/18/18 12:[address] Patient Name: CONNIE LYON Admission Status: ER Accout number: [id number] Admission Date: 09-16-2018 : 1965 Admission Diagnosis: Attending: MICHEAL REYES Current LOS: 2 Anticipated DC Date: Planned Disposition: Home Primary Insurance: MEDICARE A & B Discharge Planning Comments: CM met with patient to discuss discharge planning/needs, he is alone in the room. He is homeless, has been staying at [facility] and plans on returning there. States he will walk there at discharge. I gave him a bus ticket and informed him he will need to go to his pharmacy on [address] to get his prescriptions and then can use the bus ticket to take him to [facility]. I also provided him with a local alcohol rehab list. He states he has been to [facility] before. He is discharging today and agrees with discharge. CM will continue to follow and assist with discharge planning/needs. Zoogler: Pratima Almodovar DCPIA - Discharge Planning Initial Assessment Updated by [email or web address]: Pratima Almodovar on 09/18/18 1:19 pm * Is the patient Alert and Oriented? Yes * How many steps to enter\exit or inside your home? 0/0 * PCP None * [facility] * Preadmission Environment Homeless * Facility Name Staying at [facility] * ADLs Independent * Equipment None * Community resources currently utilized None * Additional services required to return to the preadmission environment? No * Can the patient safely return to the preadmission environment? Yes * Has this patient been hospitalized within the prior 30 days at any hospital? Yes Last DP export: 09/18/18 12:25 p Patient Name: CONNIE LYON Page [id number] at 1059 All edits/amendments must be made on the electronic document DICTATION DATE: 09/19/181058 DIRECTOR DIGITAL ANALYTICS: SALOMON 09/19/18 1059 RPT#: [id number] DC DATE:09/18/18 STATUS: DIS IN [facility] [address] [place] [address] END OF REPORT
== END 2018-09-18 15:28 | disposition home or self-care (01) | DRG 641 ==
LOC: D.ER 18:34 → D.MS 22:41
PROVIDERS: Family Medicine; ADMIT Internal Medicine Nephrology
DX: E87.1 Hypo-osmolality and hyponatremia (principal); F17.213 Nicotine dependence, cigarettes, with withdrawal; E44.0 Moderate protein-calorie malnutrition; F10.129 Alcohol abuse with intoxication, unspecified; D64.9 Anemia, unspecified; E86.0 Dehydration; E83.42 Hypomagnesemia; F32.9 Major depressive disorder, single episode, unspecified; I12.9 Hypertensive chronic kidney disease with stage 1 through stage 4 chronic kidney disease, or unspecified chronic kidney disease; N18.3 Chronic kidney disease, stage 3 (moderate); Z68.25 Body mass index [BMI] 25.0-25.9, adult

== ENCOUNTER 2018-09-19 18:29 | Emergency (ER) | payer MEDICARE ==
[~2018-09-19] VITALS: Ht 165.1 cm; Wt 72.7 kg
[~2018-09-19 18:29] MED LIST changes: +FOLIC ACID1 MG PO; +SODIUM BICARBO650 MG PO; +TYLENOL PM1 TAB PO; +VITAMIN B-1100 M1 PO
[2018-09-19 18:30] VITALS: Ht 165.1 cm; Wt 72.7 kg
[2018-09-19 19:42] LABS: BASOPHILS 0.3 % (0-2); EOSINOPHILS 0.5 % (0-7); HEMATOCRIT 30.8 % (42.0-54.0); IMMATURE GRANULOCYTES 0.2 % (0-5); LYMPHOCYTES 32.5 % (15-50); MCH 31.3 pg (26.0-34.0); MCHC 35.7 g/dL (31.0-37.0); MEAN PLATELET VOLUME 8.8 fL (7.4-10.4); MONOCYTES 9.7 % (2-11); NEUTROPHILS 56.8 % (40-80); PLATELET COUNT 161 10x3/uL (130-400); RBC 3.51 10x6/uL (4.20-6.10); RDW 13.6 % (11.5-14.5)
[2018-09-19 19:46] LABS: APPEARANCE CLEAR (CLEAR); BILIRUBIN NEGATIVE (NEGATIVE); COLOR YELLOW (YELLOW); GLUCOSE NEGATIVE (NEGATIVE); KETONE NEGATIVE (NEGATIVE); NITRITE NEGATIVE (NEGATIVE); PROTEIN NEGATIVE (NEGATIVE); UROBILINOGEN NORMAL (NORMAL)
[2018-09-19 19:51] LABS: UDS - AMPHET NEGATIVE QUAL (NEGATIVE); UDS - BARB NEGATIVE QUAL (NEGATIVE); UDS - BENZO POSITIVE QUAL (NEGATIVE); UDS - COCAINE NEGATIVE QUAL (NEGATIVE); UDS - OPIATE NEGATIVE QUAL (NEGATIVE); UDS - PCP NEGATIVE QUAL (NEGATIVE); UDS - THC NEGATIVE QUAL (NEGATIVE)
[2018-09-19 19:52] LABS: WBC 5.9 10x3/uL (4.8-10.8)
[2018-09-19 19:53] LABS: MCV 87.7 fL (80.0-100.0)
[2018-09-19 20:04] LABS: ALBUMIN 3.3 g/dL (3.4-5.0); ANION GAP 11.9 mmol/L (8-16); BILIRUBIN - TOTAL 0.33 mg/dL (0.2-1.3); CALCIUM 8.3 mg/dL (8.5-10.1); CARBON DIOXIDE 29.3 mmol/L (21.0-32.0); CREATININE - SERUM 1.4 mg/dL (0.6-1.3); MAGNESIUM - SERUM 1.3 mg/dL (1.8-2.4); POTASSIUM - SERUM 4.2 mmol/L (3.5-5.1); PROTEIN - SERUM 7.1 g/dL (6.4-8.2)
[2018-09-19 21:16] LABS: MAGNESIUM - SERUM 1.4 mg/dL (1.8-2.4)
[2018-09-20 02:36] VITALS: BP 138/72
== END 2018-09-20 02:37 | disposition other institution (70) ==
LOC: D.ER 18:29
PROVIDERS: Emergency Medicine
DX: R45.851 Suicidal ideations (principal); R10.9 Unspecified abdominal pain; D64.9 Anemia, unspecified; E83.42 Hypomagnesemia

== ENCOUNTER 2018-10-17 18:07 | Emergency (ER) | payer MEDICARE ==
[~2018-10-17] VITALS: Ht 165.1 cm; Wt 68.2 kg
[2018-10-17 18:21] VITALS: Ht 165.1 cm; Wt 68.2 kg
[2018-10-17 18:56] LABS: BASOPHILS 0.3 % (0-2); EOSINOPHILS 6.2 % (0-7); HEMATOCRIT 29.3 % (42.0-54.0); HEMOGLOBIN 10.4 g/dL (13.5-17.5); IMMATURE GRANULOCYTES 0.2 % (0-5); LYMPHOCYTES 39.3 % (15-50); MCH 31.5 pg (26.0-34.0); MCHC 35.5 g/dL (31.0-37.0); MCV 88.8 fL (80.0-100.0); MONOCYTES 15.6 % (2-11); NEUTROPHILS 38.4 % (40-80); PLATELET COUNT 156 10x3/uL (130-400); RDW 14.9 % (11.5-14.5); WBC 6.4 10x3/uL (4.8-10.8)
[2018-10-17 19:21] LABS: ALBUMIN 3.9 g/dL (3.4-5.0); ANION GAP 17.8 mmol/L (8-16); BILIRUBIN - TOTAL 0.44 mg/dL (0.2-1.3); CALCIUM 8.6 mg/dL (8.5-10.1); CARBON DIOXIDE 21.8 mmol/L (21.0-32.0); CREATININE - SERUM 2.7 mg/dL (0.6-1.3); POTASSIUM - SERUM 4.6 mmol/L (3.5-5.1); PROTEIN - SERUM 7.3 g/dL (6.4-8.2)
[2018-10-17 20:00] LABS: APPEARANCE CLEAR (CLEAR); BILIRUBIN NEGATIVE (NEGATIVE); COLOR YELLOW (YELLOW); GLUCOSE NEGATIVE (NEGATIVE); KETONE NEGATIVE (NEGATIVE); NITRITE NEGATIVE (NEGATIVE); PROTEIN NEGATIVE (NEGATIVE); RED CELLS - URINE 0-5 /hpf (0-5); UROBILINOGEN NORMAL (NORMAL)
[2018-10-17 20:01] LABS: BACTERIA FEW /hpf (NONE SEEN); EPITHELIAL CELLS NSEEN /hpf (0-5)
[2018-10-17 20:02] LABS: UDS - AMPHET NEGATIVE QUAL (NEGATIVE); UDS - BARB NEGATIVE QUAL (NEGATIVE); UDS - BENZO NEGATIVE QUAL (NEGATIVE); UDS - COCAINE NEGATIVE QUAL (NEGATIVE); UDS - OPIATE NEGATIVE QUAL (NEGATIVE); UDS - PCP NEGATIVE QUAL (NEGATIVE); UDS - THC NEGATIVE QUAL (NEGATIVE)
[2018-10-18 02:45] LABS: ALBUMIN 3.3 g/dL (3.4-5.0); ANION GAP 13.9 mmol/L (8-16); BILIRUBIN - TOTAL 0.28 mg/dL (0.2-1.3); CALCIUM 7.8 mg/dL (8.5-10.1); CARBON DIOXIDE 24.1 mmol/L (21.0-32.0); PROTEIN - SERUM 6.4 g/dL (6.4-8.2)
[2018-10-18 02:46] LABS: CREATININE - SERUM 1.9 mg/dL (0.6-1.3)
[2018-10-18 09:26] VITALS: BP 124/67
== END 2018-10-18 09:32 | disposition home or self-care (01) ==
LOC: D.ER 18:07
PROVIDERS: Family Medicine
DX: F10.129 Alcohol abuse with intoxication, unspecified (principal)

== ENCOUNTER 2018-10-24 16:03 | Emergency (ER) | payer MEDICARE ==
[~2018-10-24] VITALS: Ht 165.1 cm; Wt 68.2 kg
[2018-10-24 16:11] VITALS: Ht 165.1 cm; Wt 68.2 kg
[2018-10-24 18:23] VITALS: BP 116/78
== END 2018-10-24 18:25 | disposition home or self-care (01) ==
LOC: D.ER 16:03
DX: F10.129 Alcohol abuse with intoxication, unspecified (principal)

== ENCOUNTER 2018-11-10 14:42 | Emergency (ER) | payer MEDICARE ==
[2018-11-10 14:43] VITALS: BMI 21.3
--- NOTE | 2018-11-10 15:36 | NUR ---
SPOKE WITH ATTENDING REGARDING ASSESSMENT FINDING. PT ADMITS TO DRINKING TODAY TO ATTENDING MD. ALCOHOL LEVEL ORDERED PER ATTENDING MD. DR. HERNANDEZ NOTIFIED AND WANTS PT MOVED TO SAFE ROOM FOR OBSERVATION VIA CAMERA AND TO BE RESCREENED WHEN SOBER. RESOURCES PROVIDED TO PT. CHARGE NURSE AND ATTENDING NOTIFIED. ONCE PT IS SOBER, PT WILL BE REEVALUATED.
[2018-11-10 16:11] LABS: BASOPHILS 0.8 % (0-2); EOSINOPHILS 3.7 % (0-7); HEMOGLOBIN 12.1 g/dL (13.5-17.5); IMMATURE GRANULOCYTES 0.2 % (0-5); LYMPHOCYTES 48.3 % (15-50); MCH 31.9 pg (26.0-34.0); MCHC 35.6 g/dL (31.0-37.0); MCV 89.7 fL (80.0-100.0); MEAN PLATELET VOLUME 9.5 fL (7.4-10.4); MONOCYTES 7.3 % (2-11); NEUTROPHILS 39.7 % (40-80); RBC 3.79 10x6/uL (4.20-6.10); RDW 15.2 % (11.5-14.5); WBC 5.1 10x3/uL (4.8-10.8)
[2018-11-10 16:14] LABS: PLATELET COUNT 225 10x3/uL (130-400)
[2018-11-10 16:46] LABS: ALBUMIN 3.6 g/dL (3.4-5.0); BILIRUBIN - TOTAL 0.16 mg/dL (0.2-1.3); CALCIUM 8.4 mg/dL (8.5-10.1); CARBON DIOXIDE 25.8 mmol/L (21.0-32.0); CREATININE - SERUM 1.2 mg/dL (0.6-1.3); POTASSIUM - SERUM 3.8 mmol/L (3.5-5.1); PROTEIN - SERUM 7.2 g/dL (6.4-8.2)
[2018-11-10 17:00] LABS: MAGNESIUM - SERUM 1.6 mg/dL (1.8-2.4)
[2018-11-10 17:31] LABS: UDS - AMPHET NEGATIVE QUAL (NEGATIVE); UDS - BARB NEGATIVE QUAL (NEGATIVE); UDS - BENZO NEGATIVE QUAL (NEGATIVE); UDS - COCAINE NEGATIVE QUAL (NEGATIVE); UDS - OPIATE NEGATIVE QUAL (NEGATIVE); UDS - PCP NEGATIVE QUAL (NEGATIVE); UDS - THC NEGATIVE QUAL (NEGATIVE)
[2018-11-10 17:39] LABS: APPEARANCE CLEAR (CLEAR); BILIRUBIN NEGATIVE (NEGATIVE); COLOR STRAW (YELLOW); GLUCOSE NEGATIVE (NEGATIVE); KETONE NEGATIVE (NEGATIVE); NITRITE NEGATIVE (NEGATIVE); PROTEIN NEGATIVE (NEGATIVE); UROBILINOGEN NORMAL (NORMAL)
--- NOTE | 2018-11-11 00:52 | NUR ---
PATIENT SCREEN IN EXAM ROOM 21, PATIENT CAME IN WITH INCREASED BLOOD ALCOHOL LEVEL, NOW IT IS DOWN. PATIENT HAS RECEIVED A "BANANA BAG" AND STATES, "I FEEL BETTER NOW". PATIENT WAS ASKED IF HE WANTED TO HARM HIMSELF AND HIS RESPONSE WAS "SHOOT NO", PATIENT WAS GIVEN A LIST OF RESOURCES FOR FUTURE REFERENCES. VS. STABLE.
[2018-11-11 01:30] VITALS: BP 114/67
== END 2018-11-11 01:30 | disposition home or self-care (01) ==
LOC: D.ER 14:42
PROVIDERS: Emergency Medicine
DX: R10.13 Epigastric pain (principal)

== ENCOUNTER 2018-12-20 16:37 | Observation (INO) | payer MEDICARE ==
[~2018-12-20] VITALS: Ht 165.1 cm; Wt 58.2 kg
[2018-12-20 19:38] LABS: HEMATOCRIT 34.1 % (42.0-54.0); HEMOGLOBIN 12.1 g/dL (13.5-17.5); MCH 32.3 pg (26.0-34.0); MCHC 35.5 g/dL (31.0-37.0); MCV 90.9 fL (80.0-100.0); MEAN PLATELET VOLUME 9.3 fL (7.4-10.4); RBC 3.75 10x6/uL (4.20-6.10); RDW 13.8 % (11.5-14.5); WBC 5.3 10x3/uL (4.8-10.8)
[2018-12-20 19:41] LABS: PLATELET COUNT 165 10x3/uL (130-400)
[2018-12-20 19:55] LABS: ALBUMIN 3.1 g/dL (3.4-5.0); ANION GAP 12.8 mmol/L (8-16); BILIRUBIN - TOTAL 0.31 mg/dL (0.2-1.3); CALCIUM 7.4 mg/dL (8.5-10.1); CARBON DIOXIDE 25.5 mmol/L (21.0-32.0); CREATININE - SERUM 1.5 mg/dL (0.6-1.3); MAGNESIUM - SERUM 1.6 mg/dL (1.8-2.4); POTASSIUM - SERUM 4.3 mmol/L (3.5-5.1); PROTEIN - SERUM 6.2 g/dL (6.4-8.2)
[2018-12-20 19:57] LABS: EOSINOPHILS 2 % (0-7); LYMPHOCYTES 63 % (15-50); MONOCYTES 2 % (2-11); NEUTROPHILS 33 % (40-80); PLATELET ESTIMATE NORMAL
--- NOTE | 2018-12-20 21:00 | NUR ---
PT GIVEN SANDWICH BOX AND COFFEE AT THIS TIME. UA SENT TO LAB
[2018-12-20 21:30] LABS: APPEARANCE CLEAR (CLEAR); BILIRUBIN NEGATIVE (NEGATIVE); COLOR YELLOW (YELLOW); GLUCOSE NEGATIVE (NEGATIVE); KETONE NEGATIVE (NEGATIVE); NITRITE NEGATIVE (NEGATIVE); PROTEIN NEGATIVE (NEGATIVE); UDS - AMPHET NEGATIVE QUAL (NEGATIVE); UDS - BARB NEGATIVE QUAL (NEGATIVE); UDS - BENZO NEGATIVE QUAL (NEGATIVE); UDS - COCAINE NEGATIVE QUAL (NEGATIVE); UDS - OPIATE NEGATIVE QUAL (NEGATIVE); UDS - PCP NEGATIVE QUAL (NEGATIVE); UDS - THC NEGATIVE QUAL (NEGATIVE); UROBILINOGEN NORMAL (NORMAL)
[2018-12-20] MEDS ORDERED: TENORMIN50 MG PO (21:39)
[2018-12-20] MEDS ORDERED: SEROQUEL50 MG PO (21:40)
[2018-12-20] MEDS ORDERED: NEURONTIN800 MG PO (21:40)
--- NOTE | 2018-12-20 21:40 | NUR ---
RECIEVED TO FLOOR, ACCOMPANIED BY STAFF. SLURS WORDS AND IS UNSTEADY WHILE AMBULATING. REPORTS SUICIDAL IDEATIONS AND THAT HE STOPPED TAKING DEPRESSION MEDICATION BECAUSE HE WAS FEELING BETTER, BUT RESTARTED TAKING THEM YESTERDAY. PUSHER OPERATOR INFORMED AND PSYCH NOTIFIED TO ASSESS. REMOVED HAZARD ITEMS AND KEPT A STAFF MEMBER IN ROOM UNTIL PSYCH ARRIVED, WILL CONTINUE TO MONITOR.
[2018-12-20] MEDS ORDERED: CELEXA20 MG PO (21:41)
[2018-12-20] MEDS ORDERED: SEROQUEL100 MG PO (21:41)
[2018-12-20] MEDS ORDERED: TRAZODONE HCL150 MG PO (21:42)
--- NOTE | 2018-12-20 22:49 | NUR ---
DR HERNANDEZ NOTIFIED AND REVIEWED PT's BEHAVIOR AND ASSESSMENT RESULTS. PT IS A LOW RISK PER DR HERNANDEZ. DR HERNANDEZ STATED TO GIVE RESOURCES TO PT AT TIME OF DISCHARGE. NO FURTHER ORDERS AT THIS TIME. RESOURCES REVIEWED WITH PTAND HE VERBALLIZED UNDERSTANDING.
[2018-12-20 23:04] VITALS: BP 122/68
[2018-12-20 23:53] VITALS: BP 94/59
[2018-12-21] VITALS (8 sets, daily range): BP systolic 102–143; BP diastolic 55–93; Ht 165.1 cm; Wt 58.2 kg
[2018-12-21 06:02] LABS: ALBUMIN 2.7 g/dL (3.4-5.0); ANION GAP 13.5 mmol/L (8-16); BILIRUBIN - TOTAL 0.54 mg/dL (0.2-1.3); CALCIUM 7.4 mg/dL (8.5-10.1); CARBON DIOXIDE 24.8 mmol/L (21.0-32.0); CREATININE - SERUM 1.3 mg/dL (0.6-1.3); PHOSPHOROUS 3.3 mg/dL (2.5-4.9); POTASSIUM - SERUM 4.3 mmol/L (3.5-5.1); PROTEIN - SERUM 5.6 g/dL (6.4-8.2)
[2018-12-21 06:17] LABS: BASOPHILS 0.2 % (0-2); EOSINOPHILS 6.9 % (0-7); HEMATOCRIT 31.6 % (42.0-54.0); HEMOGLOBIN 11.1 g/dL (13.5-17.5); MCH 32.2 pg (26.0-34.0); MCHC 35.1 g/dL (31.0-37.0); MCV 91.6 fL (80.0-100.0); MEAN PLATELET VOLUME 9.7 fL (7.4-10.4); MONOCYTES 6.5 % (2-11); NEUTROPHILS 55.4 % (40-80); PLATELET COUNT 166 10x3/uL (130-400); RBC 3.45 10x6/uL (4.20-6.10); WBC 5.2 10x3/uL (4.8-10.8)
--- NOTE | 2018-12-21 07:15 | NUR ---
ALERT AND ORIENTED, RESTING IN BED EYES OPEN. BP WNL. UP AD VELASQUEZ. ON ELECTROLYTE PROTOCOL. IV TO LEFT FOREARM, NS INFUSING @ 50ML/HR. SITE PATENT WITHOUT REDNESS OR SWELLING. PT REFUSED SCDS, AND REFUSES TO CHANGE INTO A GOWN. PT DENIES ANY NEEDS AT THIS TIME. CALL LIGHT IN REACH. WILL CONTINUE TO MONITOR.
--- NOTE | 2018-12-21 12:22 | NUR ---
I have reviewed this patient and I concur with the Shift Assessment completed by the Licensed Practical Nurse today this shift.
--- NOTE | 2018-12-21 13:06 | NUR ---
SPOKE WITH PT RE TOBACCO QUITLINE REFERRAL. HE DECLINES.
--- NOTE | 2018-12-21 13:37 | NUR ---
PT DISCHARGED HOME VIA WHEELCHAIR ACCOMPANIED BY STAFF. TAMMI SHELBY LPN WENT OVER DISCHARGE INSTRUCTIONS WITH PT, PT VERBALIZED UNDERSTANDING. IV DISCONTINUED, CATHETER TIP INTACT. PT DENIES ANY NEEDS.
== END 2018-12-21 13:38 | disposition home or self-care (01) ==
LOC: D.ER 16:37 → D.MS 19:47 → OBSVTIME 19:47 → D.MS 12-21 13:38
PROVIDERS: Family Medicine; ADMIT Internal Medicine Nephrology; ATTEND Internal Medicine Nephrology
DX: I95.9 Hypotension, unspecified (principal); F10.129 Alcohol abuse with intoxication, unspecified; E83.42 Hypomagnesemia; E87.1 Hypo-osmolality and hyponatremia; N17.9 Acute kidney failure, unspecified; D64.9 Anemia, unspecified; F31.9 Bipolar disorder, unspecified; F17.203 Nicotine dependence unspecified, with withdrawal; K21.9 Gastro-esophageal reflux disease without esophagitis; F41.8 Other specified anxiety disorders

== ENCOUNTER 2018-12-28 12:12 | Emergency (ER) | payer MEDICARE ==
[~2018-12-28] VITALS: Ht 165.1 cm; Wt 72.7 kg
[~2018-12-28 12:12] MED LIST changes: +CELEXA20 MG PO; +SEROQUEL50 MG PO; +TRAZODONE HCL150 MG PO
[2018-12-28 12:18] VITALS: Ht 165.1 cm; Wt 72.7 kg
--- NOTE | 2018-12-28 13:25 | NUR ---
According to the suicidal assessment the patient is not suicidal. He does say he is extremely angry with someone, but refuses to state who it is.
[2018-12-28 15:19] LABS: BASOPHILS 0.2 % (0-2); EOSINOPHILS 8.7 % (0-7); HEMATOCRIT 28.1 % (42.0-54.0); IMMATURE GRANULOCYTES 0.2 % (0-5); LYMPHOCYTES 37.6 % (15-50); MCH 32.7 pg (26.0-34.0); MCHC 35.6 g/dL (31.0-37.0); MCV 91.8 fL (80.0-100.0); MEAN PLATELET VOLUME 9.1 fL (7.4-10.4); MONOCYTES 7.4 % (2-11); NEUTROPHILS 45.9 % (40-80); PLATELET COUNT 130 10x3/uL (130-400); RBC 3.06 10x6/uL (4.20-6.10); RDW 14.3 % (11.5-14.5)
[2018-12-28 15:38] LABS: ANION GAP 11.7 mmol/L (8-16); BILIRUBIN - TOTAL 0.36 mg/dL (0.2-1.3); CALCIUM 7.8 mg/dL (8.5-10.1); CARBON DIOXIDE 27.6 mmol/L (21.0-32.0); CREATININE - SERUM 1.5 mg/dL (0.6-1.3); POTASSIUM - SERUM 4.3 mmol/L (3.5-5.1)
[2018-12-29 00:16] VITALS: BP 103/65
== END 2018-12-29 00:17 | disposition home or self-care (01) ==
LOC: D.ER 12:12
PROVIDERS: Family Medicine
DX: F10.129 Alcohol abuse with intoxication, unspecified (principal); Y90.7 Blood alcohol level of 200-239 mg/100 ml; Z86.73 Personal history of transient ischemic attack (TIA), and cerebral infarction without residual deficits; F20.9 Schizophrenia, unspecified

== ENCOUNTER 2019-01-13 16:35 | Inpatient (IN) | payer MEDICARE ==
[~2019-01-13] VITALS: Ht 165.1 cm; Wt 68.0 kg
[2019-01-13 17:23] LABS: BASOPHILS 0.3 % (0-2); EOSINOPHILS 0.3 % (0-7); HEMATOCRIT 32.8 % (42.0-54.0); HEMOGLOBIN 12.1 g/dL (13.5-17.5); IMMATURE GRANULOCYTES 0.2 % (0-5); LYMPHOCYTES 29.4 % (15-50); MCH 33.4 pg (26.0-34.0); MCHC 36.9 g/dL (31.0-37.0); MCV 90.6 fL (80.0-100.0); MONOCYTES 8.7 % (2-11); NEUTROPHILS 61.1 % (40-80); RBC 3.62 10x6/uL (4.20-6.10); RDW 13.7 % (11.5-14.5); WBC 5.7 10x3/uL (4.8-10.8)
[2019-01-13 17:43] LABS: PLATELET COUNT 177 10x3/uL (130-400)
[2019-01-13 17:48] LABS: ALBUMIN 3.5 g/dL (3.4-5.0); ALKALINE PHOSPHATASE 94 U/L (46-116); ALT (SGPT) 23 U/L (10-68); AMYLASE - SERUM 53 U/L (25-115); BILIRUBIN - TOTAL 0.69 mg/dL (0.2-1.3); CALCIUM 8.3 mg/dL (8.5-10.1); CARBON DIOXIDE 21.9 mmol/L (21.0-32.0); CREATININE - SERUM 1.2 mg/dL (0.6-1.3); GLUCOSE 82 mg/dL (74-106); LIPASE 195 U/L (73-393); PROTEIN - SERUM 7.4 g/dL (6.4-8.2); UREA NITROGEN 8 mg/dL (7-18); eGFR NON AFRICAN AMERICAN 67 mL/min (90-120)
[2019-01-13 17:52] LABS: CALC OSMOLALITY 234 mosm/kg (275-300)
[2019-01-13 17:53] LABS: SODIUM 118 mmol/L (136-145); TROPONIN-I < 0.017 ng/mL (0.000-0.060)
[2019-01-13 17:54] LABS: CHLORIDE - SERUM 83 mmol/L (98-107)
[2019-01-13 18:46] LABS: APPEARANCE CLEAR (CLEAR); BILIRUBIN NEGATIVE (NEGATIVE); COLOR YELLOW (YELLOW); GLUCOSE NEGATIVE (NEGATIVE); KETONE NEGATIVE (NEGATIVE); NITRITE NEGATIVE (NEGATIVE); PROTEIN TRACE mg/dL (NEGATIVE); SPECIFIC GRAVITY 1.015 (1.005-1.020); UROBILINOGEN NORMAL (NORMAL)
[2019-01-13 18:49] LABS: BACTERIA MODERATE /hpf (NONE SEEN); RED CELLS - URINE 0-5 /hpf (0-5)
--- NOTE | 2019-01-13 20:30 | NUR ---
TO ROOM 2214 FROM ER VIA WHEELCHAIR. PT IS WITHOUT DISTRESS.ORIENTATION TO ROOM.CALL LIGHT IN REACH.MABEL FOR FALL PREVENTION.CALL LIGHT IN REACH
[2019-01-13 22:58] VITALS: BP 124/74; BMI 25.0
[2019-01-14] VITALS: BP 132/81
--- NOTE | 2019-01-14 01:48 | NUR ---
PT IS RESTING,WITHOUT SIGNS OF DISTRESS.MONITOR
[2019-01-14 04:00] VITALS: BP 143/87
--- NOTE | 2019-01-14 06:26 | NUR ---
REMAINS WITHOUT NEEDS.FALL PREVENTION IN PLACE.CONT PLAN OF CARE
[2019-01-14 06:55] LABS: CALCIUM 8.3 mg/dL (8.5-10.1); CARBON DIOXIDE 25.7 mmol/L (21.0-32.0); CREATININE - SERUM 1.2 mg/dL (0.6-1.3); MAGNESIUM - SERUM 1.3 mg/dL (1.8-2.4); PHOSPHOROUS 3.5 mg/dL (2.5-4.9)
[2019-01-14 06:57] LABS: POTASSIUM - SERUM 4.7 mmol/L (3.5-5.1)
[2019-01-14 07:58] LABS: BASOPHILS 0.4 % (0-2); EOSINOPHILS 1.2 % (0-7); HEMATOCRIT 32.1 % (42.0-54.0); HEMOGLOBIN 11.5 g/dL (13.5-17.5); LYMPHOCYTES 19.9 % (15-50); MCHC 35.8 g/dL (31.0-37.0); MCV 92.2 fL (80.0-100.0); MONOCYTES 15.1 % (2-11); NEUTROPHILS 63.4 % (40-80); PLATELET COUNT 164 10x3/uL (130-400); RBC 3.48 10x6/uL (4.20-6.10); RDW 13.9 % (11.5-14.5); WBC 4.8 10x3/uL (4.8-10.8)
--- NOTE | 2019-01-14 08:50 | NUR ---
THE PATIENT APPEARED TO BE SLEEPING BUT EASILY AWOKE WHEN STAFF ENTERED HIS ROOM. BED IS IN THE LOW POSITION WITH SIDERAILS X2 AND CALL LIGHT WITHIN REACH. THE PATIENT WAS EDUCATED ON THE USE OF A CALL LIGHT AND DEMONSTRATES UNDERSTANDING VIA TEACHBACK METHOD. THE PATIENT APPEARS COMFORTABLE WITH NO QUESTIONS OR COCNERNS AT THIS TIME.
[2019-01-14 09:18] LABS: % SATURATION 41 % (15-55); IRON 96 ug/dl (35-150); TOTAL IRON BIND CAPACITY 231 ug/dl (260-445); UNSAT IRON BIND CAPACITY 135 ug/dl (150-375)
[2019-01-14 09:33] VITALS: BP 152/92
[2019-01-14 11:29] VITALS: BP 145/86
[2019-01-14 14:25] VITALS: Ht 165.1 cm; Wt 68.0 kg
[2019-01-14 16:35] VITALS: BP 158/84
--- NOTE | 2019-01-14 19:30 | NUR ---
PT SITTING UP IN BED WITHOUT DISTRESS, ALERT AND ORIENTED. IV LEFT HAND INFUSING NS @ 75. BED RAILS PADDED. DENIES NEEDS OR PAIN. MABEL ON. CL IN REACH, WILL CTM
[2019-01-14 22:24] VITALS: BP 169/91
[2019-01-15 03:48] VITALS: BP 152/80
--- NOTE | 2019-01-15 06:00 | NUR ---
PT LYING IN BED RESTING WITHOUT DISTRESS. DENIES NEEDS, CL IN REACH. WILL CTM
[2019-01-15 06:49] VITALS: BP 157/87
[2019-01-15 07:18] LABS: BASOPHILS 0.2 % (0-2); EOSINOPHILS 1.9 % (0-7); HEMOGLOBIN 11.8 g/dL (13.5-17.5); IMMATURE GRANULOCYTES 0.2 % (0-5); MCH 33.5 pg (26.0-34.0); MCHC 35.8 g/dL (31.0-37.0); MCV 93.8 fL (80.0-100.0); MEAN PLATELET VOLUME 9.5 fL (7.4-10.4); MONOCYTES 14.2 % (2-11); NEUTROPHILS 51.5 % (40-80); PLATELET COUNT 134 10x3/uL (130-400); RBC 3.52 10x6/uL (4.20-6.10); RDW 13.9 % (11.5-14.5); WBC 5.3 10x3/uL (4.8-10.8)
--- NOTE | 2019-01-15 07:30 | NUR ---
PT RESTING IN BED WATCHING TV. NO S/S OF ACUTE DISTRESS. NO S/S OF DTS. CL IN PLACE.
[2019-01-15 07:36] LABS: ANION GAP 11.9 mmol/L (8-16); CALCIUM 8.1 mg/dL (8.5-10.1); CARBON DIOXIDE 26.6 mmol/L (21.0-32.0); CREATININE - SERUM 1.2 mg/dL (0.6-1.3)
[2019-01-15 07:37] LABS: MAGNESIUM - SERUM 2.1 mg/dL (1.8-2.4); PHOSPHOROUS 2.5 mg/dL (2.5-4.9); POTASSIUM - SERUM 3.5 mmol/L (3.5-5.1)
[2019-01-15 10:17] VITALS: BP 159/93
[2019-01-15] MEDS ORDERED: LEVOFLOXACIN500 MG PO (11:30)
--- NOTE | 2019-01-15 12:31 | MORECARE ---
CASE MANAGEMENT DISCHARGE SUMMARY PATIENT: CONNIE LYON UNIT: [id number] ADM DATE: 01/14/19 AGE: 53 : 63 SEX: M ROOM/BED: D.2214 AUTHOR: GODWIN CARCAMO PHYSICIAN: REFERRING PHYSICIAN: MICHEAL REYES MD DATE OF SERVICE: 01/15/19 Discharge Plan Patient Name: CONNIE LYON Facility: [facility]:[place] : 1965 Planned Disposition: Home Anticipated Discharge Date: Discharge Date: Expected LOS: Initial Reviewer: [email or web address] Initial Review Date: 01/13/2019 Generated: 01/15/19 1:31 pm DCPIA - Discharge Planning Initial Assessment Updated by [email or web address]: Emelia Coles on 01/15/19 12:29 pm * Is the patient Alert and Oriented? Yes * How many steps to enter\exit or inside your home? * PCP NONE * Pharmacy NONE * Preadmission Environment Homeless * Facility Name NONE * ADLs Independent * Equipment None * List name and contact numbers for known caregivers / representatives who currently or will assist patient after discharge: NONE * Verbal permission to speak to the caregivers and representatives has been obtained from the patient. N/A * Please name any agencies selected above. ALF * Additional services required to return to the preadmission environment? No * Can the patient safely return to the preadmission environment? Yes * Has this patient been hospitalized within the prior 30 days at any hospital? No Patient Name: CONNIE LYON Page [id number] at 1231 All edits/amendments must be made on the electronic document DICTATION DATE: 01/15/19 1231 TRAVEL REGISTERED NURSE ONCOLOGY: SALOMON 01/15/19 1231 RPT#: [id number] DC DATE: STATUS: ADM IN [facility] [address] [place] [address] END OF REPORT
--- NOTE | 2019-01-15 12:40 | MORECARE ---
CASE MANAGEMENT DISCHARGE SUMMARY PATIENT: CONNIE LYON UNIT: [id number] ADM DATE: 01/14/19 AGE: 53 : 63 SEX: M ROOM/BED: D.2214 AUTHOR: CARLOS ALBERTODOC PHYSICIAN: REFERRING PHYSICIAN: MICHEAL REYES MD DATE OF SERVICE: 01/15/19 Discharge Plan Patient Name: CONNIE LYON Facility: [facility]:[place] : 1965 Planned Disposition: Home Anticipated Discharge Date: Discharge Date: Expected LOS: Initial Reviewer: [email or web address] Initial Review Date: 01/13/2019 Generated: 01/15/19 1:39 pm Comments DCP- Discharge Planning Updated by [email or web address]: Emelia Coles on 01/15/19 11:[address] Patient Name: CONNIE LYON Admission Status: ER Accout number: [id number] Admission Date: 01-14-2019 : 1965 Admission Diagnosis: Attending: MICHEAL REYES Current LOS: 1 Anticipated DC Date: Planned Disposition: Home Primary Insurance: MEDICARE A & B Discharge Planning Comments: CM met with patient to complete initial dc planning assessment. CM educated patient on the CM role and verbal consent given by patient to complete assessment. Patient is homeless, but states that he is going to stay with a friend when he is discharged and feels this is a safe discharge. I gave his a list of homeless shelters and a list of retirement's for him to apply for . he states he gets a government check. I did give him a bus ticket to get to his friends home. Patient denied any other discharge needs at this time. CM will continue to follow and will assist as needed with dc plans/needs. Attending Ambulatory Care: Emelia Coles DCPIA - Discharge Planning Initial Assessment Updated by [email or web address]: Emelia Coles on 01/15/19 12:29 pm * Is the patient Alert and Oriented? Yes * How many steps to enter\exit or inside your home? * PCP NONE * Pharmacy NONE * Preadmission Environment Homeless * Facility Name NONE * ADLs Independent * Equipment None * List name and contact numbers for known caregivers / representatives who currently or will assist patient after discharge: NONE * Verbal permission to speak to the caregivers and representatives has been obtained from the patient. N/A * Please name any agencies selected above. [facility] * Additional services required to return to the preadmission environment? No * Can the patient safely return to the preadmission environment? Yes * Has this patient been hospitalized within the prior 30 days at any hospital? No Last DP export: 01/15/19 11:31 a Patient Name: CONNIE LYON Page [id number] at 1240 All edits/amendments must be made on the electronic document DICTATION DATE: 01/15/19 1239 EXPLOSION WELDER: SALOMON 01/15/19 1239 RPT#: [id number] DC DATE: STATUS: ADM IN [facility] [address] [place] [address] END OF REPORT
--- NOTE | 2019-01-15 13:51 | NUR ---
IV DC WITH TIP INTACT. ALL BELONGINGS TAKEN DOWN BY PT. PT REFUSED TO RIDE IN WC. NO S/S OF ACUTE DISTRESS. PT AMBULATED OFF FLOOR.
== END 2019-01-15 13:52 | disposition home or self-care (01) | DRG 641 ==
LOC: D.ER 16:35 → D.MS 19:25 → OBSVTIME 19:27 → D.MS 01-14 15:22
PROVIDERS: Family Medicine; ADMIT Internal Medicine Nephrology; ATTEND Internal Medicine Nephrology
DX: E87.1 Hypo-osmolality and hyponatremia (principal); N39.0 Urinary tract infection, site not specified; F17.203 Nicotine dependence unspecified, with withdrawal; F10.129 Alcohol abuse with intoxication, unspecified; Y90.8 Blood alcohol level of 240 mg/100 ml or more; F12.90 Cannabis use, unspecified, uncomplicated; D64.9 Anemia, unspecified; F41.8 Other specified anxiety disorders; K21.9 Gastro-esophageal reflux disease without esophagitis; F20.9 Schizophrenia, unspecified; F31.9 Bipolar disorder, unspecified

== ENCOUNTER 2019-01-28 19:12 | Inpatient (IN) | payer MEDICARE ==
[~2019-01-28] VITALS: Ht 165.1 cm; Wt 68.2 kg
[~2019-01-28 19:12] MED LIST changes: +LEVOFLOXACIN500 MG PO
[2019-01-28 20:36] LABS: BASOPHILS 0.5 % (0-2); EOSINOPHILS 5.1 % (0-7); HEMATOCRIT 30.1 % (42.0-54.0); HEMOGLOBIN 10.9 g/dL (13.5-17.5); IMMATURE GRANULOCYTES 0.2 % (0-5); LYMPHOCYTES 33.9 % (15-50); MCH 33.3 pg (26.0-34.0); MCHC 36.2 g/dL (31.0-37.0); MEAN PLATELET VOLUME 9.1 fL (7.4-10.4); MONOCYTES 18.8 % (2-11); NEUTROPHILS 41.5 % (40-80); RBC 3.27 10x6/uL (4.20-6.10); RDW 13.1 % (11.5-14.5); WBC 5.7 10x3/uL (4.8-10.8)
[2019-01-28 20:39] LABS: PLATELET COUNT 321 10x3/uL (130-400)
[2019-01-28 20:51] LABS: ALBUMIN 3.3 g/dL (3.4-5.0); ANION GAP 15.1 mmol/L (8-16); BILIRUBIN - TOTAL 0.53 mg/dL (0.2-1.3); CALCIUM 8.7 mg/dL (8.5-10.1); CARBON DIOXIDE 26.4 mmol/L (21.0-32.0); CREATININE - SERUM 2.1 mg/dL (0.6-1.3); MAGNESIUM - SERUM 1.5 mg/dL (1.8-2.4); POTASSIUM - SERUM 4.5 mmol/L (3.5-5.1); PROTEIN - SERUM 7.2 g/dL (6.4-8.2)
--- NOTE | 2019-01-28 22:29 | NUR ---
URINE TO LAB
[2019-01-28 22:30] VITALS: BP 129/83
[2019-01-28 22:56] LABS: APPEARANCE CLEAR (CLEAR); BILIRUBIN NEGATIVE (NEGATIVE); COLOR STRAW (YELLOW); GLUCOSE NEGATIVE (NEGATIVE); KETONE NEGATIVE (NEGATIVE); NITRITE NEGATIVE (NEGATIVE); PROTEIN NEGATIVE (NEGATIVE); UROBILINOGEN NORMAL (NORMAL)
[2019-01-28 23:10] LABS: UDS - AMPHET NEGATIVE QUAL (NEGATIVE); UDS - BARB NEGATIVE QUAL (NEGATIVE); UDS - BENZO POSITIVE QUAL (NEGATIVE); UDS - COCAINE NEGATIVE QUAL (NEGATIVE); UDS - OPIATE NEGATIVE QUAL (NEGATIVE); UDS - PCP NEGATIVE QUAL (NEGATIVE); UDS - THC NEGATIVE QUAL (NEGATIVE)
[2019-01-28 23:12] VITALS: BP 138/79
[2019-01-29 02:35] VITALS: BP 128/78; BMI 25.0
[2019-01-29 04:00] VITALS: BP 128/78
[2019-01-29 06:30] LABS: HEMATOCRIT 31.3 % (42.0-54.0); HEMOGLOBIN 11.4 g/dL (13.5-17.5); MCHC 36.4 g/dL (31.0-37.0); MCV 93.4 fL (80.0-100.0); MEAN PLATELET VOLUME 8.9 fL (7.4-10.4); PLATELET COUNT 297 10x3/uL (130-400); RBC 3.35 10x6/uL (4.20-6.10); RDW 13.3 % (11.5-14.5)
[2019-01-29 06:55] LABS: ALBUMIN 3.2 g/dL (3.4-5.0); ANION GAP 9.8 mmol/L (8-16); BILIRUBIN - TOTAL 0.55 mg/dL (0.2-1.3); CALCIUM 8.3 mg/dL (8.5-10.1); CARBON DIOXIDE 30.1 mmol/L (21.0-32.0); POTASSIUM - SERUM 3.9 mmol/L (3.5-5.1)
[2019-01-29 06:58] LABS: MAGNESIUM - SERUM 2.1 mg/dL (1.8-2.4)
[2019-01-29 07:14] LABS: WBC 4.2 10x3/uL (4.8-10.8)
--- NOTE | 2019-01-29 07:45 | NUR ---
REPORT RECIEVED. PT IS LYING SEMI FOWLERS IN BED. RR EVEN AND UNLABORED. HE HAS A L UPPER ARM PIV THAT IS SL. BED LOCKED AND IN LOWEST POSITION. CALL LIGHT WITHIN REACH. WILL CTM
[2019-01-29 08:47] VITALS: BP 136/55
[2019-01-29 08:53] VITALS: BP 136/55
[2019-01-29 09:32] LABS: EOSINOPHILS 8 % (0-7); HYPOCHROMASIA OCC; LYMPHOCYTES 42 % (15-50); MONOCYTES 24 % (2-11); NEUTROPHILS 25 % (40-80); PLATELET ESTIMATE NORMAL
--- NOTE | 2019-01-29 11:18 | NUR ---
I have reviewed this patient and I concur with the Shift Assessment completed by the Licensed Practical Nurse today this shift.
[2019-01-29 12:52] VITALS: BP 127/59
[2019-01-29 13:49] VITALS: Ht 165.1 cm; Wt 68.2 kg
--- NOTE | 2019-01-29 14:57 | NUR ---
DC PAPERWORK GONE OVER AND SIGNED WITH PT. ALL QUESTIONS ANSWERED. PIV REMOVED, CATH TIP FULLY INTACT. PT WAS WHEELED TO FRONT ENTRANCE BY AN ESCORT.
== END 2019-01-29 15:00 | disposition home or self-care (01) | DRG 897 ==
LOC: D.ER 19:12 → D.M2 22:37
PROVIDERS: Family Medicine; ADMIT Internal Medicine Nephrology; ATTEND Internal Medicine Nephrology
DX: F10.129 Alcohol abuse with intoxication, unspecified (principal); E87.1 Hypo-osmolality and hyponatremia; N17.9 Acute kidney failure, unspecified; E83.42 Hypomagnesemia; R42 Dizziness and giddiness; D64.9 Anemia, unspecified; I10 Essential (primary) hypertension; Y90.3 Blood alcohol level of 60-79 mg/100 ml; E86.0 Dehydration; F17.213 Nicotine dependence, cigarettes, with withdrawal; E16.2 Hypoglycemia, unspecified; K21.9 Gastro-esophageal reflux disease without esophagitis; F32.9 Major depressive disorder, single episode, unspecified; F20.9 Schizophrenia, unspecified

== ENCOUNTER 2019-02-14 18:42 | Emergency (ER) | payer MEDICARE ==
[~2019-02-14] VITALS: Ht 165.1 cm; Wt 58.2 kg
[2019-02-14 19:09] VITALS: Ht 165.1 cm; Wt 58.2 kg
[2019-02-14 19:33] LABS: BASOPHILS 0.3 % (0-2); HEMOGLOBIN 13.7 g/dL (13.5-17.5); IMMATURE GRANULOCYTES 0.2 % (0-5); LYMPHOCYTES 24.4 % (15-50); MCH 33.7 pg (26.0-34.0); MCV 90.9 fL (80.0-100.0); MEAN PLATELET VOLUME 9.6 fL (7.4-10.4); MONOCYTES 9.5 % (2-11); NEUTROPHILS 63.6 % (40-80); RBC 4.07 10x6/uL (4.20-6.10); RDW 13.8 % (11.5-14.5); WBC 6.6 10x3/uL (4.8-10.8)
[2019-02-14 19:35] LABS: PLATELET COUNT 102 10x3/uL (130-400)
[2019-02-14 19:49] LABS: ALBUMIN 3.9 g/dL (3.4-5.0); ANION GAP 13.8 mmol/L (8-16); BILIRUBIN - TOTAL 0.76 mg/dL (0.2-1.3); CALCIUM 8.7 mg/dL (8.5-10.1); CARBON DIOXIDE 25.5 mmol/L (21.0-32.0); CREATININE - SERUM 1.2 mg/dL (0.6-1.3); POTASSIUM - SERUM 5.3 mmol/L (3.5-5.1)
[2019-02-14 20:37] LABS: APPEARANCE CLEAR (CLEAR); BILIRUBIN NEGATIVE (NEGATIVE); COLOR YELLOW (YELLOW); GLUCOSE NEGATIVE (NEGATIVE); KETONE NEGATIVE (NEGATIVE); NITRITE NEGATIVE (NEGATIVE); PROTEIN 1+ mg/dL (NEGATIVE); UROBILINOGEN NORMAL (NORMAL)
[2019-02-14 20:40] LABS: RED CELLS - URINE 0-5 /hpf (0-5)
[2019-02-14 20:41] LABS: BACTERIA MODERATE /hpf (NONE SEEN)
[2019-02-14 21:06] LABS: AMYLASE - SERUM 68 U/L (25-115); LIPASE 525 U/L (73-393)
[2019-02-15] MEDS ORDERED: OMNICEF300 MG PO (00:45)
[2019-02-15 03:02] VITALS: BP 139/95
== END 2019-02-15 02:45 | disposition home or self-care (01) ==
LOC: D.ER 18:42
PROVIDERS: Family Medicine
DX: N39.0 Urinary tract infection, site not specified (principal); E86.0 Dehydration; E87.6 Hypokalemia

== ENCOUNTER 2019-02-18 18:27 | Emergency (ER) | payer MEDICARE ==
[~2019-02-18] VITALS: Ht 165.1 cm; Wt 65.9 kg
[~2019-02-18 18:27] MED LIST changes: +OMNICEF300 MG PO
[2019-02-18 18:32] VITALS: Ht 165.1 cm; Wt 65.9 kg
[2019-02-18 19:19] LABS: BASOPHILS 0.6 % (0-2); EOSINOPHILS 2.9 % (0-7); HEMATOCRIT 31.2 % (42.0-54.0); HEMOGLOBIN 11.4 g/dL (13.5-17.5); LYMPHOCYTES 51.9 % (15-50); MCHC 36.5 g/dL (31.0-37.0); MCV 90.4 fL (80.0-100.0); MEAN PLATELET VOLUME 9.5 fL (7.4-10.4); MONOCYTES 7.8 % (2-11); NEUTROPHILS 36.8 % (40-80); PLATELET COUNT 111 10x3/uL (130-400); RBC 3.45 10x6/uL (4.20-6.10); RDW 13.8 % (11.5-14.5); WBC 3.1 10x3/uL (4.8-10.8)
[2019-02-18 19:39] LABS: ANION GAP 14.6 mmol/L (8-16); BILIRUBIN - TOTAL 0.31 mg/dL (0.2-1.3); CARBON DIOXIDE 26.5 mmol/L (21.0-32.0); CREATININE - SERUM 1.2 mg/dL (0.6-1.3); MAGNESIUM - SERUM 1.3 mg/dL (1.8-2.4); POTASSIUM - SERUM 4.1 mmol/L (3.5-5.1); PROTEIN - SERUM 6.4 g/dL (6.4-8.2)
[2019-02-18 20:03] LABS: APPEARANCE CLEAR (CLEAR); BILIRUBIN NEGATIVE (NEGATIVE); COLOR YELLOW (YELLOW); GLUCOSE NEGATIVE (NEGATIVE); KETONE NEGATIVE (NEGATIVE); NITRITE NEGATIVE (NEGATIVE); PROTEIN NEGATIVE (NEGATIVE); UROBILINOGEN NORMAL (NORMAL)
[2019-02-18 20:06] LABS: BACTERIA MODERATE /hpf (NONE SEEN); EPITHELIAL CELLS 0-5 /hpf (0-5); MUCUS <1+ /lpf (NONE SEEN); RED CELLS - URINE 0-5 /hpf (0-5)
[2019-02-18 20:18] LABS: UDS - AMPHET NEGATIVE QUAL (NEGATIVE); UDS - BARB NEGATIVE QUAL (NEGATIVE); UDS - BENZO POSITIVE QUAL (NEGATIVE); UDS - COCAINE NEGATIVE QUAL (NEGATIVE); UDS - OPIATE NEGATIVE QUAL (NEGATIVE); UDS - PCP NEGATIVE QUAL (NEGATIVE); UDS - THC NEGATIVE QUAL (NEGATIVE)
[2019-02-19 05:44] VITALS: BP 177/85
== END 2019-02-19 05:49 ==
LOC: D.ER 18:27
PROVIDERS: Family Medicine
DX: F10.129 Alcohol abuse with intoxication, unspecified (principal); Y90.7 Blood alcohol level of 200-239 mg/100 ml; R45.850 Homicidal ideations; F17.220 Nicotine dependence, chewing tobacco, uncomplicated

== ENCOUNTER 2019-02-24 21:44 | Emergency (ER) | payer MEDICARE ==
[~2019-02-24] VITALS: Ht 165.1 cm; Wt 72.7 kg
[2019-02-24 21:52] VITALS: Ht 165.1 cm; Wt 72.7 kg
[2019-02-24 22:22] LABS: HEMATOCRIT 29.5 % (42.0-54.0); HEMOGLOBIN 10.2 g/dL (13.5-17.5); MCH 33.1 pg (26.0-34.0); MCHC 34.6 g/dL (31.0-37.0); MCV 95.8 fL (80.0-100.0); RBC 3.08 10x6/uL (4.20-6.10); RDW 13.8 % (11.5-14.5); WBC 4.7 10x3/uL (4.8-10.8)
[2019-02-24 22:26] LABS: PLATELET COUNT 222 10x3/uL (130-400)
[2019-02-24 22:41] LABS: ALKALINE PHOSPHATASE 65 U/L (46-116); ALT (SGPT) 83 U/L (10-68); BILIRUBIN - TOTAL 0.17 mg/dL (0.2-1.3); CALC OSMOLALITY 265 mosm/kg (275-300); CALCIUM 8.1 mg/dL (8.5-10.1); CARBON DIOXIDE 27.7 mmol/L (21.0-32.0); CHLORIDE - SERUM 96 mmol/L (98-107); GLUCOSE 86 mg/dL (74-106); POTASSIUM - SERUM 4.2 mmol/L (3.5-5.1); PROTEIN - SERUM 6.2 g/dL (6.4-8.2); SODIUM 130 mmol/L (136-145); UREA NITROGEN 28 mg/dL (7-18); eGFR NON AFRICAN AMERICAN 37 mL/min (90-120)
[2019-02-24 22:49] LABS: CKMB 0.5 U/L (0.0-3.6); CREATINE KINASE 36 UL (21-232); MAGNESIUM - SERUM 1.4 mg/dL (1.8-2.4); TROPONIN-I < 0.017 ng/mL (0.000-0.060)
[2019-02-24 22:59] LABS: EOSINOPHILS 1 % (0-7); LYMPHOCYTES 70 % (15-50); MONOCYTES 3 % (2-11); NEUTROPHILS 26 % (40-80); PLATELET ESTIMATE NORMAL
[2019-02-25 00:45] LABS: UDS - AMPHET NEGATIVE QUAL (NEGATIVE); UDS - BARB NEGATIVE QUAL (NEGATIVE); UDS - BENZO POSITIVE QUAL (NEGATIVE); UDS - COCAINE NEGATIVE QUAL (NEGATIVE); UDS - OPIATE NEGATIVE QUAL (NEGATIVE); UDS - PCP NEGATIVE QUAL (NEGATIVE); UDS - THC NEGATIVE QUAL (NEGATIVE)
[2019-02-25 00:51] LABS: APPEARANCE CLEAR (CLEAR); BILIRUBIN NEGATIVE (NEGATIVE); COLOR YELLOW (YELLOW); GLUCOSE NEGATIVE (NEGATIVE); KETONE NEGATIVE (NEGATIVE); NITRITE NEGATIVE (NEGATIVE); PROTEIN NEGATIVE (NEGATIVE); UROBILINOGEN NORMAL (NORMAL)
[2019-02-25 00:52] LABS: BACTERIA NONE SEEN /hpf (NEGATIVE); EPITHELIAL CELLS 0-5 /hpf (0-5); RED CELLS - URINE 0-5 /hpf (0-5); WHITE CELLS - URINE 0-5 /hpf (NEGATIVE)
[2019-02-25 06:11] VITALS: BP 124/82
== END 2019-02-25 06:12 | disposition home or self-care (01) ==
LOC: D.ER 21:44
PROVIDERS: Emergency Medicine
DX: F10.10 Alcohol abuse, uncomplicated (principal)

== ENCOUNTER 2019-03-03 14:33 | Emergency (ER) | payer MEDICARE ==
[~2019-03-03] VITALS: Ht 165.1 cm; Wt 63.6 kg
[2019-03-03 14:39] VITALS: Ht 165.1 cm; Wt 63.6 kg
[2019-03-03 15:16] LABS: BASOPHILS 1.6 % (0-2); EOSINOPHILS 8.4 % (0-7); HEMATOCRIT 28.7 % (42.0-54.0); HEMOGLOBIN 9.7 g/dL (13.5-17.5); LYMPHOCYTES 41.1 % (15-50); MCH 33.1 pg (26.0-34.0); MCHC 33.8 g/dL (31.0-37.0); MEAN PLATELET VOLUME 9.1 fL (7.4-10.4); MONOCYTES 11.2 % (2-11); NEUTROPHILS 37.7 % (40-80); RBC 2.93 10x6/uL (4.20-6.10); RDW 14.1 % (11.5-14.5)
[2019-03-03 15:24] LABS: APTT 31.6 SECONDS (22.8-39.4); INR 1.04 (0.85-1.17); PROTIME 13.1 SECONDS (11.6-15.0)
[2019-03-03 15:26] LABS: PLATELET COUNT 321 10x3/uL (130-400)
[2019-03-03 15:31] LABS: ALKALINE PHOSPHATASE 113 U/L (46-116); ALT (SGPT) 113 U/L (10-68); BILIRUBIN - TOTAL 0.28 mg/dL (0.2-1.3); CALC OSMOLALITY 273 mosm/kg (275-300); CALCIUM 8.6 mg/dL (8.5-10.1); CHLORIDE - SERUM 101 mmol/L (98-107); CREATININE - SERUM 2.1 mg/dL (0.6-1.3); GLUCOSE 95 mg/dL (74-106); POTASSIUM - SERUM 4.5 mmol/L (3.5-5.1); PROTEIN - SERUM 6.5 g/dL (6.4-8.2); SODIUM 136 mmol/L (136-145); UREA NITROGEN 18 mg/dL (7-18); eGFR NON AFRICAN AMERICAN 35 mL/min (90-120)
[2019-03-03 15:41] LABS: CKMB 1.8 U/L (0.0-3.6); CREATINE KINASE 175 UL (21-232); LIPASE 112 U/L (73-393); MAGNESIUM - SERUM 1.4 mg/dL (1.8-2.4)
[2019-03-03 15:42] LABS: TROPONIN-I < 0.017 ng/mL (0.000-0.060)
[2019-03-03] MEDS ORDERED: NAPROSYN500 MG PO (19:58)
[2019-03-03 21:42] VITALS: BP 115/78
== END 2019-03-03 21:43 | disposition home or self-care (01) ==
LOC: D.ER 14:33
PROVIDERS: Family Medicine
DX: F10.20 Alcohol dependence, uncomplicated (principal); D64.9 Anemia, unspecified; S32.039A Unspecified fracture of third lumbar vertebra, initial encounter for closed fracture; X58.XXXA Exposure to other specified factors, initial encounter; R42 Dizziness and giddiness; E83.42 Hypomagnesemia; N28.9 Disorder of kidney and ureter, unspecified; F17.220 Nicotine dependence, chewing tobacco, uncomplicated

== ENCOUNTER 2019-03-05 11:19 | Emergency (ER) | payer MEDICARE ==
[~2019-03-05] VITALS: Ht 165.1 cm; Wt 64.5 kg
[2019-03-05 11:25] VITALS: BP 120/68; Ht 165.1 cm; Wt 64.5 kg
[2019-03-05] MEDS ORDERED: NAPROSYN500 MG PO (11:47)
== END 2019-03-05 11:52 | disposition home or self-care (01) ==
LOC: D.ER 11:19
DX: M54.5 Low back pain (principal)

== ENCOUNTER 2019-03-10 17:07 | Emergency (ER) | payer MEDICARE ==
[~2019-03-10] VITALS: Ht 165.1 cm; Wt 63.6 kg
[2019-03-10 17:22] VITALS: Ht 165.1 cm; Wt 63.6 kg
[2019-03-10 17:56] LABS: BASOPHILS 0.4 % (0-2); EOSINOPHILS 1.9 % (0-7); HEMATOCRIT 32.4 % (42.0-54.0); HEMOGLOBIN 11.3 g/dL (13.5-17.5); IMMATURE GRANULOCYTES 0.2 % (0-5); LYMPHOCYTES 50.9 % (15-50); MCH 32.7 pg (26.0-34.0); MCHC 34.9 g/dL (31.0-37.0); MCV 93.6 fL (80.0-100.0); MEAN PLATELET VOLUME 9.2 fL (7.4-10.4); NEUTROPHILS 33.6 % (40-80); PLATELET COUNT 282 10x3/uL (130-400); RBC 3.46 10x6/uL (4.20-6.10); RDW 13.3 % (11.5-14.5); WBC 5.4 10x3/uL (4.8-10.8)
[2019-03-10 18:11] LABS: ALBUMIN 3.4 g/dL (3.4-5.0); BILIRUBIN - TOTAL 0.25 mg/dL (0.2-1.3); CALCIUM 7.7 mg/dL (8.5-10.1); CARBON DIOXIDE 28.6 mmol/L (21.0-32.0); CREATININE - SERUM 1.9 mg/dL (0.6-1.3); POTASSIUM - SERUM 4.6 mmol/L (3.5-5.1); PROTEIN - SERUM 6.8 g/dL (6.4-8.2)
[2019-03-10 19:52] LABS: APPEARANCE CLEAR (CLEAR); COLOR YELLOW (YELLOW)
[2019-03-10 19:53] LABS: BACTERIA FEW /hpf (NEGATIVE); BILIRUBIN NEGATIVE (NEGATIVE); GLUCOSE NEGATIVE (NEGATIVE); KETONE NEGATIVE (NEGATIVE); NITRITE NEGATIVE (NEGATIVE); PROTEIN NEGATIVE (NEGATIVE); RED CELLS - URINE 0-5 /hpf (0-5); UROBILINOGEN NORMAL (NORMAL)
[2019-03-10 20:07] LABS: UDS - AMPHET NEGATIVE QUAL (NEGATIVE); UDS - BARB NEGATIVE QUAL (NEGATIVE); UDS - BENZO NEGATIVE QUAL (NEGATIVE); UDS - COCAINE NEGATIVE QUAL (NEGATIVE); UDS - OPIATE NEGATIVE QUAL (NEGATIVE); UDS - PCP NEGATIVE QUAL (NEGATIVE); UDS - THC NEGATIVE QUAL (NEGATIVE)
[2019-03-11 04:27] LABS: BASOPHILS 0.5 % (0-2); EOSINOPHILS 6.3 % (0-7); HEMATOCRIT 35.9 % (42.0-54.0); HEMOGLOBIN 12.5 g/dL (13.5-17.5); IMMATURE GRANULOCYTES 0.2 % (0-5); LYMPHOCYTES 40.1 % (15-50); MCH 32.9 pg (26.0-34.0); MCHC 34.8 g/dL (31.0-37.0); MCV 94.5 fL (80.0-100.0); MEAN PLATELET VOLUME 9.5 fL (7.4-10.4); MONOCYTES 10.6 % (2-11); NEUTROPHILS 42.3 % (40-80); PLATELET COUNT 314 10x3/uL (130-400); RDW 13.4 % (11.5-14.5); WBC 4.3 10x3/uL (4.8-10.8)
[2019-03-11 04:37] LABS: ANION GAP 15.9 mmol/L (8-16); CARBON DIOXIDE 24.7 mmol/L (21.0-32.0); CREATININE - SERUM 1.6 mg/dL (0.6-1.3); POTASSIUM - SERUM 4.6 mmol/L (3.5-5.1)
--- NOTE | 2019-03-11 05:28 | NUR ---
DR HERNANDEZ NOTIFIIED AND REVIEWED PATIENT BEHAVIOR AND ASSESSMENT RESULTS. PATIENT IS A LOW RISK PER DR HERNANDEZ. DR HERNANDEZ SAID TO GIVE RESOURCES AT TIME OF DISCHARGE. RESOURCES REVIEWED WITH PATIENT AND VERBALIZES UNDERSTANDING. NO FURTHER ORDERS AT THIS TIME.
[2019-03-11 06:21] VITALS: BP 132/88
== END 2019-03-11 06:13 | disposition home or self-care (01) ==
LOC: D.ER 17:07
PROVIDERS: Emergency Medicine
DX: F10.20 Alcohol dependence, uncomplicated (principal); Y90.8 Blood alcohol level of 240 mg/100 ml or more; E87.1 Hypo-osmolality and hyponatremia; I10 Essential (primary) hypertension; Z91.19 Patient's noncompliance with other medical treatment and regimen; M54.89 Other dorsalgia

== ENCOUNTER 2019-03-27 17:17 | Emergency (ER) | payer MEDICARE ==
[~2019-03-27] VITALS: Ht 165.1 cm; Wt 65.9 kg
[2019-03-27 17:39] VITALS: Ht 165.1 cm; Wt 65.9 kg
[2019-03-27 18:07] LABS: APPEARANCE CLEAR (CLEAR); BILIRUBIN NEGATIVE (NEGATIVE); COLOR STRAW (YELLOW); GLUCOSE NEGATIVE (NEGATIVE); KETONE NEGATIVE (NEGATIVE); NITRITE NEGATIVE (NEGATIVE); PROTEIN NEGATIVE (NEGATIVE); UROBILINOGEN NORMAL (NORMAL)
[2019-03-27 18:08] LABS: BACTERIA FEW /hpf (NEGATIVE); RED CELLS - URINE 0-5 /hpf (0-5)
[2019-03-27 18:13] LABS: UDS - AMPHET NEGATIVE QUAL (NEGATIVE); UDS - BARB NEGATIVE QUAL (NEGATIVE); UDS - BENZO NEGATIVE QUAL (NEGATIVE); UDS - COCAINE NEGATIVE QUAL (NEGATIVE); UDS - OPIATE NEGATIVE QUAL (NEGATIVE); UDS - PCP NEGATIVE QUAL (NEGATIVE); UDS - THC NEGATIVE QUAL (NEGATIVE)
[2019-03-27 18:23] LABS: BASOPHILS 0.5 % (0-2); EOSINOPHILS 1.4 % (0-7); HEMATOCRIT 29.7 % (42.0-54.0); HEMOGLOBIN 10.5 g/dL (13.5-17.5); IMMATURE GRANULOCYTES 0.2 % (0-5); LYMPHOCYTES 30.5 % (15-50); MCH 33.1 pg (26.0-34.0); MCHC 35.4 g/dL (31.0-37.0); MCV 93.7 fL (80.0-100.0); MEAN PLATELET VOLUME 8.5 fL (7.4-10.4); MONOCYTES 9.8 % (2-11); NEUTROPHILS 57.6 % (40-80); PLATELET COUNT 291 10x3/uL (130-400); RBC 3.17 10x6/uL (4.20-6.10); RDW 13.2 % (11.5-14.5); WBC 6.3 10x3/uL (4.8-10.8)
[2019-03-27 18:31] LABS: ANION GAP 7.5 mmol/L (8-16); CALCIUM 8.5 mg/dL (8.5-10.1); CARBON DIOXIDE 29.9 mmol/L (21.0-32.0); CREATININE - SERUM 1.2 mg/dL (0.6-1.3); POTASSIUM - SERUM 4.4 mmol/L (3.5-5.1)
[2019-03-27 18:37] LABS: ALBUMIN 3.3 g/dL (3.4-5.0); BILIRUBIN - TOTAL 0.31 mg/dL (0.2-1.3); MAGNESIUM - SERUM 1.6 mg/dL (1.8-2.4); PROTEIN - SERUM 6.6 g/dL (6.4-8.2)
[2019-03-28 04:10] VITALS: BP 163/96
== END 2019-03-28 05:16 | disposition other institution (70) ==
LOC: D.ER 17:17
PROVIDERS: Family Medicine
DX: F10.129 Alcohol abuse with intoxication, unspecified (principal); D64.9 Anemia, unspecified; N39.0 Urinary tract infection, site not specified

== ENCOUNTER 2019-04-07 12:11 | Inpatient (IN) | payer MEDICARE ==
[~2019-04-07] VITALS: Ht 165.1 cm; Wt 66.4 kg
[2019-04-07] VITALS (10 sets, daily range): BP systolic 110–144; BP diastolic 40–83
--- NOTE | 2019-04-07 12:12 | NUR ---
RECEIVED PATIENT FROM EMS. PATIENT WAS FOUND UNRESPONSIVE ON RR TRACKS DOWNTOWN. PT HAS ETOH SCENT, VSS ARE STABLE WITH THE EXCEPTION OF CORE TEMP OF 84.0 F. WARMER PLACED, IV X 2 OBTAINED WITH WARM FLUIDS INFUSING TO R ARM. HAHN PLACED TO MONITOR CORE TEMP AND UO. UNABLE TO GET EKG DUE TO SHIVERING. PATIENT HAS MULTIPLE CONTUSIONS TO BILAT KNEES, ELBOWS, AND R CHEST AREA. SOME BLOOD NOTED TO R SIDE OF FACE AND OLD VOMITUS TO LEFT SIDE OF FACE.
[2019-04-07 12:52] LABS: BASOPHILS 0 % (0-2); EOSINOPHILS 0 % (0-7); HEMATOCRIT 32.2 % (42.0-54.0); HEMOGLOBIN 11.3 g/dL (13.5-17.5); IMMATURE GRANULOCYTES 0.1 % (0-5); LYMPHOCYTES 6.7 % (15-50); MCH 32.7 pg (26.0-34.0); MCHC 35.1 g/dL (31.0-37.0); MCV 93.1 fL (80.0-100.0); MONOCYTES 8.4 % (2-11); NEUTROPHILS 84.8 % (40-80); PLATELET COUNT 290 10x3/uL (130-400); RBC 3.46 10x6/uL (4.20-6.10); RDW 12.7 % (11.5-14.5); WBC 6.8 10x3/uL (4.8-10.8)
[2019-04-07 13:00] LABS: CALC OSMOLALITY 258 mosm/kg (275-300); CALCIUM 8.3 mg/dL (8.5-10.1); CARBON DIOXIDE 22.7 mmol/L (21.0-32.0); CHLORIDE - SERUM 87 mmol/L (98-107); CREATININE - SERUM 1.8 mg/dL (0.6-1.3); GLUCOSE 116 mg/dL (74-106); POTASSIUM - SERUM 4.7 mmol/L (3.5-5.1); SODIUM 123 mmol/L (136-145); UREA NITROGEN 41 mg/dL (7-18); eGFR NON AFRICAN AMERICAN 42 mL/min (90-120)
[2019-04-07 13:09] LABS: UDS - AMPHET NEGATIVE QUAL (NEGATIVE); UDS - BARB NEGATIVE QUAL (NEGATIVE); UDS - BENZO POSITIVE QUAL (NEGATIVE); UDS - COCAINE NEGATIVE QUAL (NEGATIVE); UDS - OPIATE NEGATIVE QUAL (NEGATIVE); UDS - PCP NEGATIVE QUAL (NEGATIVE); UDS - THC NEGATIVE QUAL (NEGATIVE)
[2019-04-07 13:21] LABS: INR 1.16 (0.85-1.17); PROTIME 14.2 SECONDS (11.6-15.0)
[2019-04-07 13:22] LABS: APTT 39.4 SECONDS (22.8-39.4)
[2019-04-07 13:23] LABS: ALBUMIN 3.6 g/dL (3.4-5.0); ALKALINE PHOSPHATASE 86 U/L (46-116); ALT (SGPT) 62 U/L (10-68); BILIRUBIN - TOTAL 0.47 mg/dL (0.2-1.3); MAGNESIUM - SERUM 2.5 mg/dL (1.8-2.4); PROTEIN - SERUM 7.7 g/dL (6.4-8.2); THYROID STIMULATING HORMONE 2.15 uIU/mL (0.36-3.74)
[2019-04-07 13:26] LABS: CREATINE KINASE 6705 UL (21-232)
[2019-04-07 13:28] LABS: TROPONIN-I 0.062 ng/mL (0.000-0.060)
[2019-04-07 13:51] LABS: APPEARANCE CLEAR (CLEAR); BILIRUBIN NEGATIVE (NEGATIVE); COLOR YELLOW (YELLOW); GLUCOSE NEGATIVE (NEGATIVE); KETONE NEGATIVE (NEGATIVE); NITRITE NEGATIVE (NEGATIVE); PROTEIN NEGATIVE (NEGATIVE); SPECIFIC GRAVITY 1.015 (1.005-1.020); UROBILINOGEN NORMAL (NORMAL); WHITE CELLS - URINE RARE /hpf (NEGATIVE)
[2019-04-07 13:52] LABS: BACTERIA FEW /hpf (NEGATIVE); EPITHELIAL CELLS RARE /hpf (0-5); RED CELLS - URINE 0-5 /hpf (0-5)
--- NOTE | 2019-04-07 17:31 | NUR ---
IO REMOVED PER MID-LEVEL, KATERIN. PT TOLERATED WELL.
--- NOTE | 2019-04-07 17:37 | NUR ---
REPORT TO UMANG CASILLAS AT 2300. PT TO BE ADMITTED TO ROOM 2307, ICU.
--- NOTE | 2019-04-07 17:57 | MORECARE ---
CASE MANAGEMENT DISCHARGE SUMMARY PATIENT: CONNIE LYON UNIT: [id number] ADM DATE: 04/07/19 AGE: 53 : 63 SEX: M ROOM/BED: D.2307 AUTHOR: GODWIN CARCAMO PHYSICIAN: REFERRING PHYSICIAN: MICHEAL REYES MD DATE OF SERVICE: 04/07/19 Discharge Plan Patient Name: CONNIE LYON Facility: [facility]:[place] : 1965 Planned Disposition: Home Anticipated Discharge Date: 04/09/19 Discharge Date: Expected LOS: 2 Initial Reviewer: [email or web address] Initial Review Date: 04/07/2019 Generated: 04/07/19 6:57 pm DCPIA - Discharge Planning Initial Assessment Updated by [email or web address]: Geneva Nino on 04/07/19 5:52 pm * Is the patient Alert and Oriented? Yes * How many steps to enter\exit or inside your home? None * PCP No PCP * Pharmacy [facility] [address] * Preadmission Environment Homeless * ADLs Independent * Equipment None * List name and contact numbers for known caregivers / representatives who currently or will assist patient after discharge: No emergency contact per patient. * Verbal permission to speak to the caregivers and representatives has been obtained from the patient. N/A * Community resources currently utilized None * Additional services required to return to the preadmission environment? No * Can the patient safely return to the preadmission environment? Yes * Has this patient been hospitalized within the prior 30 days at any hospital? No Patient Name: CONNIE LYON Page [id number] at 1757 All edits/amendments must be made on the electronic document DICTATION DATE: 04/07/191756 WATCHGUARD: SALOMON 04/07/191756 RPT#: [id number] DC DATE: STATUS: ADM IN [facility] [address] [place] [address] END OF REPORT
--- NOTE | 2019-04-07 18:06 | MORECARE ---
CASE MANAGEMENT DISCHARGE SUMMARY PATIENT: CONNIE LYON UNIT: [id number] ADM DATE: 04/07/19 AGE: 53 : 63 SEX: M ROOM/BED: D.2307 AUTHOR: GODWIN CARCAMO PHYSICIAN: REFERRING PHYSICIAN: MICHEAL REYES MD DATE OF SERVICE: 04/07/19 Discharge Plan Patient Name: CONNIE LYON Facility: [facility]:[place] : 1965 Planned Disposition: Home Anticipated Discharge Date: 04/09/19 Discharge Date: Expected LOS: 2 Initial Reviewer: [email or web address] Initial Review Date: 04/07/2019 Generated: 04/07/19 7:06 pm DCP- Discharge Planning Updated by [email or web address]: Geneva Nino on 04/07/19 4:[address] DC PLAN: Homeless ANTICIPATED DC NEEDS: Unsure of dc needs. CM met with patient to complete initial dc planning assessment. CM educated patient on the CM role and verbal consent given by patient to complete assessment. CM verified patient's address (which he stated he was homeless), phone number (which was lost prior to arrival), and emergency contact phone numbers (no emergency contact). Patient reports he is homeless. He was found by the [facility] tracks and was brought to the ER. He had hypothermia upon arrival to the ER. His face has caked on mud on the left side. At discharge patient plans to return to being homeless and feels this is a safe discharge. He stated he does not want any of his siblings to know where he is. Patient is aware of shelters in the area. Patient denied known discharge needs at this time. Transportation provider at discharge is himself. He stated he would walk out of here when he discharges. He reports he has $200.00 in his wallet that CM informed him he could pay for a taxi when he is discharged if he wanted. CM will continue to follow and will assist as needed with dc plans/needs. Geneva Nino RN, [facility] DCPIA - Discharge Planning Initial Assessment Updated by [email or web address]: Geneva Nino on 04/07/19 5:52 pm * Is the patient Alert and Oriented? Yes * How many steps to enter\exit or inside your home? None * PCP No PCP * Pharmacy [facility] [address] * Preadmission Environment Homeless * ADLs Independent * Equipment None * List name and contact numbers for known caregivers / representatives who currently or will assist patient after discharge: No emergency contact per patient. * Verbal permission to speak to the caregivers and representatives has been obtained from the patient. N/A * Community resources currently utilized None * Additional services required to return to the preadmission environment? No * Can the patient safely return to the preadmission environment? Yes * Has this patient been hospitalized within the prior 30 days at any hospital? No Last DP export: 04/07/19 4:57 p Patient Name: CONNIE LYON Page [phone] at 1806 All edits/amendments must be made on the electronic document DICTATION DATE: 04/07/191805 OPERATION RESEARCH ANALYST: SALOMON 04/07/191805 RPT#: [id number] DC DATE: STATUS: ADM IN [facility] [address] [place] [address] END OF REPORT
--- NOTE | 2019-04-07 19:21 | NUR ---
REPORT RECEIVED, SHIFT ASSESSMENT COMPLETED PER FLOW SHEET, SEE FOR DETAILS. 2100 JOHNATHAN BANEGAS WHO IS LUMBER CARRIER FOR DR. REYES. 2107 JOHNATHAN DICKERSON RETURNED CALL, UPDATE GIVEN, STATES HE WILL COME UP TO UNIT TO EXAMINE PATIENT. 2240 JOHNATHAN DICKERSON HERE TO EXAMINE PATIENT. NEW ORDERS RECEIVED. 225 PHARMACY NOT HERE, UNABLE TO OBTAIN MEDICATIONS, CALLED NEEDLE BOARD REPAIRER CHANDRIKA, SHE STATES SHE WILL COME UP TO UNIT TO BRING MEDICATIONS. WILL WAIT FOR AVAILABILITY TO ADMINISTER. 2317 REASSESSMENT COMPLETED PER FLOW SHEET, SEE FOR DETAILS. 0100 COMPLETE BED BATH GIVEN, COMPLETE BED LINEN CHANGE PROVIDED. DENIES NEEDS. WILL CONTINUE TO MONITOR. 0109 MEDS NOT AVAILABLE, CALLED CHANDRIKA, SHE STATES SHE IS UNABLE TO FIND SOME MEDICATIONS AND IS STILL LOOKING. 0200 ROCEPHIN NOW AVAILABLE, ADMINISTERED NOW. 0304 REASSESSMENT COMPLETED PER FLOW SHEET, SEE FOR DETAILS. 0330 MVI BAG NOW AVAILABLE, ADMINISTERED NOW.
[2019-04-08] VITALS (25 sets, daily range): BP systolic 129–159; BP diastolic 60–95; Ht 165.1 cm; Wt 66.4 kg
--- NOTE | 2019-04-08 05:00 | NUR ---
RESTING, DENIES NEEDS. CALL LIGHT WITHIN REACH. WILL CONTINUE TO MONITOR.
[2019-04-08 05:07] LABS: BASOPHILS 0 % (0-2); EOSINOPHILS 0 % (0-7); IMMATURE GRANULOCYTES 0.3 % (0-5); LYMPHOCYTES 10.2 % (15-50); MCH 31.9 pg (26.0-34.0); MCHC 34.5 g/dL (31.0-37.0); MCV 92.2 fL (80.0-100.0); MEAN PLATELET VOLUME 9.4 fL (7.4-10.4); MONOCYTES 8.6 % (2-11); NEUTROPHILS 80.9 % (40-80); RDW 13.2 % (11.5-14.5); WBC 7.8 10x3/uL (4.8-10.8)
[2019-04-08 05:22] LABS: HEMATOCRIT 24.9 % (42.0-54.0); HEMOGLOBIN 8.6 g/dL (13.5-17.5); PLATELET COUNT 223 10x3/uL (130-400)
[2019-04-08 05:52] LABS: ALKALINE PHOSPHATASE 58 U/L (46-116); ALT (SGPT) 67 U/L (10-68); BILIRUBIN - TOTAL 0.42 mg/dL (0.2-1.3); CALCIUM 7.4 mg/dL (8.5-10.1); CARBON DIOXIDE 22.2 mmol/L (21.0-32.0); CHLORIDE - SERUM 98 mmol/L (98-107); CKMB 87.2 U/L (0.0-3.6); CREATININE - SERUM 1.6 mg/dL (0.6-1.3); PHOSPHOROUS 3.8 mg/dL (2.5-4.9); POTASSIUM - SERUM 4.5 mmol/L (3.5-5.1); SODIUM 130 mmol/L (136-145); UREA NITROGEN 32 mg/dL (7-18); eGFR NON AFRICAN AMERICAN 48 mL/min (90-120)
[2019-04-08 05:59] LABS: ALBUMIN 2.6 g/dL (3.4-5.0); CALC OSMOLALITY 272 mosm/kg (275-300); GLUCOSE 189 mg/dL (74-106); MAGNESIUM - SERUM 1.7 mg/dL (1.8-2.4); PROTEIN - SERUM 5.7 g/dL (6.4-8.2); TROPONIN-I 0.287 ng/mL (0.000-0.060)
[2019-04-08 06:51] LABS: CREATINE KINASE 9387 UL (21-232)
--- NOTE | 2019-04-08 07:30 | NUR ---
PT IS AWAKE AND ALERT. TEMP PER CRITICORE IS 101.2. WILL GIVE TYLENOL PER ORDER. BREAKFAST TRAY PROVIDED. REPOSITIONED FOR COMFORT.
--- NOTE | 2019-04-08 09:00 | NUR ---
DR REYES AT BEDSIDE.
--- NOTE | 2019-04-08 09:40 | NUR ---
SELMA HENDERSON PER ORDER. PT IS CONCERNED BECAUSE HE HAS NO CLOTHES OR SHOES TO WEAR AND HE IS HOMELESS. CASE MANAGEMENT NOTIFIED.
[2019-04-08 12:51] LABS: HEMATOCRIT 27.2 % (42.0-54.0); HEMOGLOBIN 9.2 g/dL (13.5-17.5)
--- NOTE | 2019-04-08 19:00 | NUR ---
PT AOX4. UNLABORED RESPIRATIONS, LUNG SOUNDS CLEAR. SPO2 96 ON ROOM AIR. S1S2 HEARD, PERIPHERAL PULSES PRESENT. BOWEL SOUNDS ACTIVE IN ALL QUADRANTS. ABRASIONS AND BRUISES NOTED ALL OVER BODY. HEAVY ABRASIONS/SORES AND SWELLING TO BILATERAL KNEES. SLIGHT WEAKNESS TO EXTREMITIES NOTED. PT REPOSITIONS SELF INDEPENDENTLY. VSS, DENIES NEEDS. CALL LIGHT AND BEDSIDE TABLE WITHIN PT REACH. CPOC.
[2019-04-08 20:41] LABS: HEMATOCRIT 24.7 % (42.0-54.0); HEMOGLOBIN 8.6 g/dL (13.5-17.5)
--- NOTE | 2019-04-08 21:00 | NUR ---
FRESH WATER TO BEDSIDE. PT DENIES NEEDS. VSS, NO C/O PAIN AT THIS TIME. CALL LIGHT WITHIN PT REACH. CPOC.
--- NOTE | 2019-04-08 23:00 | NUR ---
REASSESSMENT COMPLETE, NO NEW CHANGES AT THIS TIME. PARTIAL LINEN CHANGE PROVIDED. PT REPOSITIONS SELF INDEPENDENTLY. VSS. DENIES NEEDS. CALL LIGHT WITHIN PT REACH. CPOC.
[2019-04-09] VITALS (12 sets, daily range): BP systolic 142–186; BP diastolic 78–106
--- NOTE | 2019-04-09 00:58 | NUR ---
SNACK PROVIDED UPON REQUEST. PT REPOSITIONS SELF INDEPENDENTLY. VSS, NO S/S OF ACUTE DISTRESS. DENIES FURTHER NEEDS AT THIS TIME. CALL LIGHT WITHIN PT REACH. CPOC.
--- NOTE | 2019-04-09 03:11 | NUR ---
REASSESSMENT COMPLETE, PT AOX4. UNLABORED RESPIRATIONS. REPOSITIONS SELF INDEPENDENTLY. S1S2 HEARD, PERIPHERAL PULSES PRESENT. BILATERAL KNEES WITH DRSGS CDI. PT REFUSES CHG BATH/LINEN CHANGE. DENIES NEEDS. CALL LIGHT AND BEDSIDE TABLE WITHIN PT REACH. CPOC.
--- NOTE | 2019-04-09 05:47 | NUR ---
PT SBP TRENDING UP, CURRENTLY 169. SERINA DICKERSON APN NOTIFIED, NO NEW ORDERS AT THIS TIME. CPOC.
[2019-04-09 06:10] LABS: BASOPHILS 0.1 % (0-2); EOSINOPHILS 0.3 % (0-7); HEMATOCRIT 26.3 % (42.0-54.0); HEMOGLOBIN 8.8 g/dL (13.5-17.5); IMMATURE GRANULOCYTES 0.1 % (0-5); LYMPHOCYTES 13.7 % (15-50); MCH 31.7 pg (26.0-34.0); MCHC 33.5 g/dL (31.0-37.0); MEAN PLATELET VOLUME 9.6 fL (7.4-10.4); MONOCYTES 9.2 % (2-11); NEUTROPHILS 76.6 % (40-80); PLATELET COUNT 190 10x3/uL (130-400); RBC 2.78 10x6/uL (4.20-6.10); RDW 13.4 % (11.5-14.5); WBC 7.2 10x3/uL (4.8-10.8)
[2019-04-09 06:19] LABS: ALBUMIN 2.5 g/dL (3.4-5.0); ANION GAP 10.4 mmol/L (8-16); BILIRUBIN - TOTAL 0.65 mg/dL (0.2-1.3); CALCIUM 7.8 mg/dL (8.5-10.1); CARBON DIOXIDE 26.6 mmol/L (21.0-32.0); CREATININE - SERUM 1.2 mg/dL (0.6-1.3); MAGNESIUM - SERUM 1.4 mg/dL (1.8-2.4); PHOSPHOROUS 2.1 mg/dL (2.5-4.9); PROTEIN - SERUM 5.8 g/dL (6.4-8.2)
[2019-04-09 06:38] LABS: MCV 94.6 fL (80.0-100.0)
[2019-04-09 13:44] LABS: CKMB 8.9 U/L (0.0-3.6); CREATINE KINASE 4024 UL (21-232)
--- NOTE | 2019-04-09 15:56 | NUR ---
PT IS AWAKE AND ALERT. HE IS DRESSED NOW. MOVES AROUND ROOM INDEPENDENTLY. DENIES PAIN. GIVEN INFORMATION ON HOMELESS SHELTERS IN .
--- NOTE | 2019-04-09 16:45 | NUR ---
ARRIVED TO UNIT FROM ICU, ALERT, CALM, COOPERATIVE, VSS OBTAINED, ASSISTED TO BED. PT QUITE TALKATIVE, DESCRIBING FALLING OFF HIS CONCRETE SLAB WHILE ASLEEP AND ROLLING INTO A STEBBINS WHERE WAS FOUND BY A PASSERBY. STATED THAT HE WAS CONCERNED ABOUT THE WEATHER AND THAT HE HAD NO PLACE TO GO.
[2019-04-09] MEDS ORDERED: TENORMIN50 MG PO (17:28)
--- NOTE | 2019-04-09 19:35 | NUR ---
PT LYING IN BED WATCHING TV. CL IN REACH. PT DOES SEEMS ANXIOUS AND NERVOUS AT THIS TIME. DENIES NEEDS AT THIS TIME. BED IN LOW SIDE RAILS X2. A/O X4. LUNGS CLEAR. BOWEL HYPERACTIVE X4. PT IS HAVING LOTS OF GAS AT THIS TIME. PT ALSO COMPLAINING OF NOT BEING ABLE TO SLEEP. WILL CHECK MAR FOR SLEEPING MEDICINE. RESP EVEN AND UNLABORED. IV INTACT. WILL CONTINUE TO MONITOR.
--- NOTE | 2019-04-09 21:49 | MORECARE ---
CASE MANAGEMENT DISCHARGE SUMMARY PATIENT: CONNIE LYON UNIT: [id number] ADM DATE: 04/07/19 AGE: 53 : 63 SEX: M ROOM/BED: D.1206 AUTHOR: CARLOS ALBERTO,DOC PHYSICIAN: REFERRING PHYSICIAN: MICHEAL REYES MD DATE OF SERVICE: 04/09/19 Discharge Plan Patient Name: CONNIE LYON Facility: [facility]:[place] : 1965 Planned Disposition: Home Anticipated Discharge Date: 04/09/19 Discharge Date: Expected LOS: 2 Initial Reviewer: [email or web address] Initial Review Date: 04/07/2019 Generated: 04/09/19 10:49 pm Comments DCP- Discharge Planning Updated by [email or web address]: Sherita Cruz on 04/09/19 8:[address] CM gave patient a list of shelters locally. Patient expressed that he was having pain in his feet that he hadn't had previously. PT to eval patient. CM will continue to follow and assist as needed with discharge planning / needs DCP- Discharge Planning Updated by [email or web address]: Geneva Nino on 04/07/19 4:[address] DC PLAN: Homeless ANTICIPATED DC NEEDS: Unsure of dc needs. CM met with patient to complete initial dc planning assessment. CM educated patient on the CM role and verbal consent given by patient to complete assessment. CM verified patient's address (which he stated he was homeless), phone number (which was lost prior to arrival), and emergency contact phone numbers (no emergency contact). Patient reports he is homeless. He was found by the [employer] and was brought to the ER. He had hypothermia upon arrival to the ER. His face has caked on mud on the left side. At discharge patient plans to return to being homeless and feels this is a safe discharge. He stated he does not want any of his siblings to know where he is. Patient is aware of shelters in the area. Patient denied known discharge needs at this time. Transportation provider at discharge is himself. He stated he would walk out of here when he discharges. He reports he has $200.00 in his wallet that CM informed him he could pay for a taxi when he is discharged if he wanted. CM will continue to follow and will assist as needed with dc plans/needs. Geneva Nino RN, [facility] DCPIA - Discharge Planning Initial Assessment Updated by [email or web address]: Geneva Nino on 04/07/19 5:52 pm * Is the patient Alert and Oriented? Yes * How many steps to enter\exit or inside your home? None * PCP No PCP * Pharmacy [facility] [address] * Preadmission Environment Homeless * ADLs Independent * Equipment None * List name and contact numbers for known caregivers / representatives who currently or will assist patient after discharge: No emergency contact per patient. * Verbal permission to speak to the caregivers and representatives has been obtained from the patient. N/A * Community resources currently utilized None * Additional services required to return to the preadmission environment? No * Can the patient safely return to the preadmission environment? Yes * Has this patient been hospitalized within the prior 30 days at any hospital? No Last DP export: 04/07/19 5:06 p Patient Name: CONNIE LYON Page [id number] at 2149 All edits/amendments must be made on the electronic document DICTATION DATE: 04/09/192148 AIRPLANE MECHANIC: SALOMON 04/09/192148 RPT#: [id number] DC DATE: STATUS: ADM IN [facility] [address] [place] [address] END OF REPORT
[2019-04-10 01:17] VITALS: BP 148/79
--- NOTE | 2019-04-10 04:42 | NUR ---
I have reviewed this patient and I concur with the Shift Assessment completed by the Licensed Practical Nurse today this shift.
[2019-04-10 04:50] VITALS: BP 164/88
[2019-04-10 05:25] LABS: BASOPHILS 0.2 % (0-2); EOSINOPHILS 4.3 % (0-7); HEMATOCRIT 25.8 % (42.0-54.0); HEMOGLOBIN 8.6 g/dL (13.5-17.5); IMMATURE GRANULOCYTES 0.2 % (0-5); LYMPHOCYTES 17.1 % (15-50); MCH 31.7 pg (26.0-34.0); MCHC 33.3 g/dL (31.0-37.0); MCV 95.2 fL (80.0-100.0); NEUTROPHILS 72.2 % (40-80); PLATELET COUNT 204 10x3/uL (130-400); RBC 2.71 10x6/uL (4.20-6.10); RDW 13.4 % (11.5-14.5); WBC 5.6 10x3/uL (4.8-10.8)
[2019-04-10 05:55] LABS: ALBUMIN 2.6 g/dL (3.4-5.0); ALKALINE PHOSPHATASE 63 U/L (46-116); ALT (SGPT) 61 U/L (10-68); BILIRUBIN - TOTAL 0.61 mg/dL (0.2-1.3); CALCIUM 7.8 mg/dL (8.5-10.1); CARBON DIOXIDE 27.2 mmol/L (21.0-32.0); CHLORIDE - SERUM 98 mmol/L (98-107); GLUCOSE 106 mg/dL (74-106); MAGNESIUM - SERUM 1.5 mg/dL (1.8-2.4); PROTEIN - SERUM 6.2 g/dL (6.4-8.2); SODIUM 132 mmol/L (136-145); eGFR NON AFRICAN AMERICAN 83 mL/min (90-120)
[2019-04-10 06:14] LABS: CALC OSMOLALITY 263 mosm/kg (275-300); PHOSPHOROUS 2.9 mg/dL (2.5-4.9); UREA NITROGEN 10 mg/dL (7-18)
--- NOTE | 2019-04-10 08:15 | NUR ---
PT RESTING IN BED WITH EYES OPEN CALL LIGHT IN REACH NO PROBLEMS WILL MONITER
[2019-04-10 08:55] VITALS: BP 173/85
--- NOTE | 2019-04-10 08:55 | NUR ---
NUTRITION F/U PT TOLERATING REG DIET WITH 100% INTAKE RECENT MEALS. WILL CONTINUE TO PROVIDE DIET, HONOR FOOD PREFERENCES, MONITOR PO INTAKE. RD FOLLOWING
--- NOTE | 2019-04-10 17:00 | NUR ---
Rehab Note- Acute Inpatient REhab prescreen order received. The patient has had an elevated temp. Will follow at this time. THe patient would be a good possible acute inpatient rehab candidiate. Will follow at this time. Thank you for this referral! Jade Delong RN Clinical Liaison, [facility] Rehab
--- NOTE | 2019-04-10 17:20 | NUR ---
PT RESTING IN BED WITH EYES OPEN CALL LIGHT IN REACH WILL MONITER
[2019-04-10 19:30] VITALS: BP 121/59; BP 170/91
--- NOTE | 2019-04-10 19:42 | NUR ---
PT LYING IN BED. CL IN REACH. DENIES NEEDS AT THIS TIME. BED IN LOW SIDE RAILS X2. A/O X4. PT USES URINAL. RESP EVEN AND UNLABORED. LUNGS CLEAR. BOWEL ACTIVE X4. WILL CONTINUE TO MONITOR.
[2019-04-11 00:10] VITALS: BP 176/96
--- NOTE | 2019-04-11 02:43 | NUR ---
I have reviewed this patient and I concur with the Shift Assessment completed by the Licensed Practical Nurse today this shift.
[2019-04-11 07:11] LABS: BASOPHILS 0.5 % (0-2); EOSINOPHILS 11.4 % (0-7); HEMATOCRIT 26.2 % (42.0-54.0); HEMOGLOBIN 8.8 g/dL (13.5-17.5); IMMATURE GRANULOCYTES 0.2 % (0-5); MCH 32.2 pg (26.0-34.0); MCHC 33.6 g/dL (31.0-37.0); MONOCYTES 10.7 % (2-11); NEUTROPHILS 58.2 % (40-80); PLATELET COUNT 228 10x3/uL (130-400); RBC 2.73 10x6/uL (4.20-6.10); RDW 13.3 % (11.5-14.5)
[2019-04-11 07:12] LABS: ALBUMIN 2.6 g/dL (3.4-5.0); ANION GAP 8.7 mmol/L (8-16); BILIRUBIN - TOTAL 0.59 mg/dL (0.2-1.3); CALCIUM 8.6 mg/dL (8.5-10.1); CARBON DIOXIDE 28.7 mmol/L (21.0-32.0); CREATININE - SERUM 1.2 mg/dL (0.6-1.3); MAGNESIUM - SERUM 1.5 mg/dL (1.8-2.4); POTASSIUM - SERUM 3.4 mmol/L (3.5-5.1); PROTEIN - SERUM 6.1 g/dL (6.4-8.2)
--- NOTE | 2019-04-11 07:40 | NUR ---
PT RESTING IN BED, DENIES NEEDS. WCTM.
--- NOTE | 2019-04-11 09:00 | NUR ---
PT DEMANDING TO HAVE IV REMOVED. PT UPSET AT RECEIVING LOVENOX SHOT AND STATED "THIS AXEL*T WAS SUPPOSED TO STOP SINCE MY IV ISN'T WORKING." EXPLAINED TO PT THAT THIS WOULD CONTINUE SINCE IT DID NOT INVOLVE THE IV. PT THEN STATED "I CAN LEAVE THIS DA*N PLACE ANYTIME I WANT TO." EXPLAINED THAT YES HE COULD BUT I WOULDN'T RECOMMEND IT WITHOUT A DR'S ORDER. PT CONTINUED TO CUSS AND YELL ABOUT HOSPITAL TREATMENT.
--- NOTE | 2019-04-11 09:13 | NUR ---
PT IV TO RT HAND DC'D, CATH TIP IN TACT. WCTM.
[2019-04-11 10:03] VITALS: BP 144/80
[2019-04-11] MEDS ORDERED: COREG6.25 MG PO (10:47)
--- NOTE | 2019-04-11 12:37 | NUR ---
PT WALKED UP TO NURSES STATION AND STATED HE WAS "LEAVING THIS MOTHER-FR." REMINDED PT THAT HE WAS TO DISCHARGE TO REHAB TODAY AND PT STATED "I'M WALKING FINE, I DON'T NEED REHAB." PT ALSO STATED THAT "NO ONE HAS CHANGED MY DRESSINGS TO MY KNEES AND NOW THEY LOOK INFECTED." REMINDED PT THAT I ATTEMPTED TO CHANGE DRESSINGS THIS AM AND PT WOULD NOT LET ME REMOVE CURRENT DRESSING. PT CONTINUED TO DEMAND HE WAS LEAVING AND WHAT DID HE NEED TO DO TO "GET THE HELL OUT OF HERE." AMA FORM WAS PRINTED AND PT SIGNED. PT WALKING OUT WITHOUT ASSISTANCE.
--- NOTE | 2019-04-11 12:44 | NUR ---
SUDHIR WITH CM TO CALL ME AND TELL ME THAT PATIENT WENT AMA. I ASKED HER TO TELL THE NURSE TO DO A CSTAR REPORT.
--- NOTE | 2019-04-11 12:45 | NUR ---
DR REYES NOTIFIED OF AMA.
--- NOTE | 2019-04-11 20:36 | MORECARE ---
CASE MANAGEMENT DISCHARGE SUMMARY PATIENT: CONNIE LYON UNIT: [id number] ADM DATE: 04/07/19 AGE: 53 : 63 SEX: M ROOM/BED: D.1206 AUTHOR: CARLOS ALBERTODOC PHYSICIAN: REFERRING PHYSICIAN: MICHEAL REYES MD DATE OF SERVICE: 04/11/19 Discharge Plan Patient Name: CONNIE LYON Facility: [facility]:[place] : 1965 Planned Disposition: Home Anticipated Discharge Date: 04/09/19 Discharge Date: 04/11/2019 Expected LOS: 2 Initial Reviewer: [email or web address] Initial Review Date: 04/07/2019 Generated: 04/11/19 9:36 pm Comments DCP- Discharge Planning Updated by [email or web address]: Sherita Cruz on 04/09/19 8:[address] CM gave patient a list of shelters locally. Patient expressed that he was having pain in his feet that he hadn't had previously. PT to eval patient. CM will continue to follow and assist as needed with discharge planning / needs DCP- Discharge Planning Updated by [email or web address]: Geneva Nino on 04/07/19 4:[address] DC PLAN: Homeless ANTICIPATED DC NEEDS: Unsure of dc needs. CM met with patient to complete initial dc planning assessment. CM educated patient on the CM role and verbal consent given by patient to complete assessment. CM verified patient's address (which he stated he was homeless), phone number (which was lost prior to arrival), and emergency contact phone numbers (no emergency contact). Patient reports he is homeless. He was found by the [employer] and was brought to the ER. He had hypothermia upon arrival to the ER. His face has caked on mud on the left side. At discharge patient plans to return to being homeless and feels this is a safe discharge. He stated he does not want any of his siblings to know where he is. Patient is aware of shelters in the area. Patient denied known discharge needs at this time. Transportation provider at discharge is himself. He stated he would walk out of here when he discharges. He reports he has $200.00 in his wallet that CM informed him he could pay for a taxi when he is discharged if he wanted. CM will continue to follow and will assist as needed with dc plans/needs. Geneva Nino RN, [facility] DCPIA - Discharge Planning Initial Assessment Updated by [email or web address]: Geneva Nino on 04/07/19 5:52 pm * Is the patient Alert and Oriented? Yes * How many steps to enter\exit or inside your home? None * PCP No PCP * Pharmacy [facility] [address] * Preadmission Environment Homeless * ADLs Independent * Equipment None * List name and contact numbers for known caregivers / representatives who currently or will assist patient after discharge: No emergency contact per patient. * Verbal permission to speak to the caregivers and representatives has been obtained from the patient. N/A * Community resources currently utilized None * Additional services required to return to the preadmission environment? No * Can the patient safely return to the preadmission environment? Yes * Has this patient been hospitalized within the prior 30 days at any hospital? No Coverage Notice Reviewer: [email or web address] Jaquelin Cruz Notice Issued Date-Time: 04/11/2019 12:15 Notice Type: IM Discharge Notice Notice Delivered To: Patient Relationship to Patient: Self Sulfur Chloride Operator Name: Delivery Method: HAND - Hand Delivered Lashanda Days: Prior Verbal Notification: Recipient Understood Notice: Yes Recipient Signature: Yes Med Rec Note Co-signed by Attending: Coverage Notice Comment: Last DP export: 04/09/19 8:49 p Patient Name: CONNIE LYON Page [id number] at 2036 All edits/amendments must be made on the electronic document DICTATION DATE: 04/11/192034 CERTIFIED NURSE OPERATING ROOM: SALOMON 04/11/192034 RPT#: [id number] DC DATE:04/11/19 STATUS: DIS IN [facility] [address] [place] [address] END OF REPORT
== END 2019-04-11 13:01 | disposition home or self-care (01) | DRG 922 ==
LOC: D.ER 12:11 → D.ICU 17:05 → D.CVICU 17:05 → D.M3 04-09 16:35
PROVIDERS: Emergency Medicine; ADMIT Internal Medicine Nephrology; ATTEND Internal Medicine Nephrology
DX: T68.XXXA Hypothermia, initial encounter (principal); G93.41 Metabolic encephalopathy; M62.82 Rhabdomyolysis; E87.1 Hypo-osmolality and hyponatremia; N17.9 Acute kidney failure, unspecified; E87.2 Acidosis; F17.203 Nicotine dependence unspecified, with withdrawal; Z85.038 Personal history of other malignant neoplasm of large intestine; F10.129 Alcohol abuse with intoxication, unspecified; K21.9 Gastro-esophageal reflux disease without esophagitis; D64.9 Anemia, unspecified; E83.42 Hypomagnesemia; E83.39 Other disorders of phosphorus metabolism; F41.8 Other specified anxiety disorders

== ENCOUNTER 2019-04-15 13:32 | Emergency (ER) | payer MEDICARE ==
[~2019-04-15] VITALS: Ht 165.1 cm; Wt 65.9 kg
[~2019-04-15 13:32] MED LIST changes: +COREG6.25 MG PO
[2019-04-15 13:40] VITALS: Ht 165.1 cm; Wt 65.9 kg
[2019-04-15 15:33] LABS: BASOPHILS 0.6 % (0-2); EOSINOPHILS 5.4 % (0-7); HEMATOCRIT 28.7 % (42.0-54.0); HEMOGLOBIN 9.8 g/dL (13.5-17.5); IMMATURE GRANULOCYTES 0.2 % (0-5); LYMPHOCYTES 40.6 % (15-50); MCH 32.5 pg (26.0-34.0); MCHC 34.1 g/dL (31.0-37.0); MEAN PLATELET VOLUME 8.6 fL (7.4-10.4); MONOCYTES 11.3 % (2-11); NEUTROPHILS 41.9 % (40-80); RBC 3.02 10x6/uL (4.20-6.10); RDW 13.8 % (11.5-14.5); WBC 5.2 10x3/uL (4.8-10.8)
[2019-04-15 15:43] LABS: CALC OSMOLALITY 267 mosm/kg (275-300); CALCIUM 8.3 mg/dL (8.5-10.1); CARBON DIOXIDE 28.9 mmol/L (21.0-32.0); CHLORIDE - SERUM 99 mmol/L (98-107); CREATININE - SERUM 0.9 mg/dL (0.6-1.3); GLUCOSE 82 mg/dL (74-106); SODIUM 136 mmol/L (136-145); UREA NITROGEN 5 mg/dL (7-18); eGFR NON AFRICAN AMERICAN > 90 mL/min (90-120)
[2019-04-15 15:49] LABS: ALBUMIN 2.9 g/dL (3.4-5.0); ALKALINE PHOSPHATASE 83 U/L (46-116); ALT (SGPT) 38 U/L (10-68); BILIRUBIN - TOTAL 0.23 mg/dL (0.2-1.3); MAGNESIUM - SERUM 1.3 mg/dL (1.8-2.4); PROTEIN - SERUM 6.9 g/dL (6.4-8.2)
[2019-04-15 15:56] LABS: APPEARANCE CLEAR (CLEAR); BILIRUBIN NEGATIVE (NEGATIVE); COLOR YELLOW (YELLOW); GLUCOSE NEGATIVE (NEGATIVE); KETONE NEGATIVE (NEGATIVE); NITRITE NEGATIVE (NEGATIVE); PROTEIN NEGATIVE (NEGATIVE); UROBILINOGEN NORMAL (NORMAL)
[2019-04-15 15:59] LABS: BACTERIA FEW /hpf (NEGATIVE); RED CELLS - URINE 0-5 /hpf (0-5); UDS - AMPHET NEGATIVE QUAL (NEGATIVE); UDS - BARB NEGATIVE QUAL (NEGATIVE); UDS - BENZO POSITIVE QUAL (NEGATIVE); UDS - COCAINE NEGATIVE QUAL (NEGATIVE); UDS - OPIATE NEGATIVE QUAL (NEGATIVE); UDS - PCP NEGATIVE QUAL (NEGATIVE); UDS - THC NEGATIVE QUAL (NEGATIVE); WHITE CELLS - URINE 0-5 /hpf (NEGATIVE)
[2019-04-15 16:05] LABS: PLATELET COUNT 426 10x3/uL (130-400)
[2019-04-16 05:58] VITALS: BP 140/83
== END 2019-04-16 05:59 | disposition home or self-care (01) ==
LOC: D.ER 13:32
PROVIDERS: Emergency Medicine
DX: F10.129 Alcohol abuse with intoxication, unspecified (principal); Y90.8 Blood alcohol level of 240 mg/100 ml or more; I10 Essential (primary) hypertension; F41.8 Other specified anxiety disorders; F20.9 Schizophrenia, unspecified; F31.9 Bipolar disorder, unspecified; Z87.898 Personal history of other specified conditions

== ENCOUNTER 2019-04-18 18:37 | Emergency (ER) | payer MEDICARE ==
[~2019-04-18] VITALS: Ht 165.1 cm; Wt 68.2 kg
[2019-04-18 18:41] VITALS: Ht 165.1 cm; Wt 68.2 kg
[2019-04-18 19:12] LABS: BASOPHILS 0.4 % (0-2); EOSINOPHILS 3.3 % (0-7); HEMATOCRIT 28.2 % (42.0-54.0); HEMOGLOBIN 9.8 g/dL (13.5-17.5); IMMATURE GRANULOCYTES 0.3 % (0-5); LYMPHOCYTES 41.5 % (15-50); MCH 32.5 pg (26.0-34.0); MCHC 34.8 g/dL (31.0-37.0); MCV 93.4 fL (80.0-100.0); MEAN PLATELET VOLUME 8.4 fL (7.4-10.4); MONOCYTES 10.9 % (2-11); NEUTROPHILS 43.6 % (40-80); PLATELET COUNT 459 10x3/uL (130-400); RBC 3.02 10x6/uL (4.20-6.10); RDW 13.8 % (11.5-14.5); WBC 7.4 10x3/uL (4.8-10.8)
[2019-04-18 19:17] LABS: APPEARANCE CLEAR (CLEAR); BILIRUBIN NEGATIVE (NEGATIVE); COLOR STRAW (YELLOW); GLUCOSE NEGATIVE (NEGATIVE); KETONE NEGATIVE (NEGATIVE); NITRITE NEGATIVE (NEGATIVE); PROTEIN NEGATIVE (NEGATIVE); SPECIFIC GRAVITY 1.005 (1.005-1.020); UROBILINOGEN NORMAL (NORMAL)
[2019-04-18 19:36] LABS: ANION GAP 14.2 mmol/L (8-16); CALCIUM 8.1 mg/dL (8.5-10.1); CARBON DIOXIDE 24.7 mmol/L (21.0-32.0); CREATININE - SERUM 1.2 mg/dL (0.6-1.3); POTASSIUM - SERUM 3.9 mmol/L (3.5-5.1); UDS - AMPHET NEGATIVE QUAL (NEGATIVE); UDS - BARB NEGATIVE QUAL (NEGATIVE); UDS - BENZO POSITIVE QUAL (NEGATIVE); UDS - COCAINE NEGATIVE QUAL (NEGATIVE); UDS - OPIATE NEGATIVE QUAL (NEGATIVE); UDS - PCP NEGATIVE QUAL (NEGATIVE); UDS - THC NEGATIVE QUAL (NEGATIVE)
[2019-04-18 19:41] LABS: ALBUMIN 3.2 g/dL (3.4-5.0); BILIRUBIN - TOTAL 0.35 mg/dL (0.2-1.3); PROTEIN - SERUM 7.2 g/dL (6.4-8.2)
[2019-04-19 09:41] VITALS: BP 118/72
== END 2019-04-19 09:42 | disposition home or self-care (01) ==
LOC: D.ER 18:37
PROVIDERS: Family Medicine
DX: F10.129 Alcohol abuse with intoxication, unspecified (principal); E83.42 Hypomagnesemia; D64.9 Anemia, unspecified; I10 Essential (primary) hypertension; Z72.0 Tobacco use; R52 Pain, unspecified; Y90.8 Blood alcohol level of 240 mg/100 ml or more

== ENCOUNTER 2019-04-22 20:39 | Emergency (ER) | payer MEDICARE ==
[~2019-04-22] VITALS: Ht 165.1 cm; Wt 72.7 kg
[2019-04-22 20:42] VITALS: Ht 165.1 cm; Wt 72.7 kg
[2019-04-22 22:04] LABS: BASOPHILS 0.4 % (0-2); EOSINOPHILS 2.4 % (0-7); HEMATOCRIT 28.1 % (42.0-54.0); HEMOGLOBIN 9.6 g/dL (13.5-17.5); MCH 31.9 pg (26.0-34.0); MCHC 34.2 g/dL (31.0-37.0); MCV 93.4 fL (80.0-100.0); MEAN PLATELET VOLUME 8.5 fL (7.4-10.4); MONOCYTES 10.5 % (2-11); NEUTROPHILS 44.7 % (40-80); RBC 3.01 10x6/uL (4.20-6.10); WBC 6.8 10x3/uL (4.8-10.8)
[2019-04-22 22:26] LABS: CARBON DIOXIDE 22.7 mmol/L (21.0-32.0); CREATININE - SERUM 1.3 mg/dL (0.6-1.3); POTASSIUM - SERUM 3.7 mmol/L (3.5-5.1)
[2019-04-22 22:28] LABS: PLATELET COUNT 347 10x3/uL (130-400)
[2019-04-22 22:29] LABS: APPEARANCE CLEAR (CLEAR); BILIRUBIN NEGATIVE (NEGATIVE); COLOR STRAW (YELLOW); GLUCOSE NEGATIVE (NEGATIVE); KETONE NEGATIVE (NEGATIVE); NITRITE NEGATIVE (NEGATIVE); PROTEIN NEGATIVE (NEGATIVE); UROBILINOGEN NORMAL (NORMAL)
[2019-04-22 22:30] LABS: UDS - AMPHET NEGATIVE QUAL (NEGATIVE); UDS - BARB NEGATIVE QUAL (NEGATIVE); UDS - BENZO NEGATIVE QUAL (NEGATIVE); UDS - COCAINE NEGATIVE QUAL (NEGATIVE); UDS - OPIATE NEGATIVE QUAL (NEGATIVE); UDS - PCP NEGATIVE QUAL (NEGATIVE); UDS - THC NEGATIVE QUAL (NEGATIVE)
[2019-04-22 22:31] LABS: BILIRUBIN - TOTAL 0.3 mg/dL (0.2-1.3); PROTEIN - SERUM 6.8 g/dL (6.4-8.2)
[2019-04-23 03:00] VITALS: BP 118/72
[2019-04-24] MEDS ORDERED: ULTRAM50 MG PO (00:58)
== END 2019-04-23 07:48 | disposition home or self-care (01) ==
LOC: D.ER 20:39
PROVIDERS: Family Medicine
DX: M25.511 Pain in right shoulder (principal); I10 Essential (primary) hypertension; Z72.0 Tobacco use; W19.XXXA Unspecified fall, initial encounter; Y93.9 Activity, unspecified; Y92.9 Unspecified place or not applicable

== ENCOUNTER 2019-04-23 17:40 | Emergency (ER) | payer MEDICARE ==
[~2019-04-23] VITALS: Ht 165.1 cm; Wt 63.6 kg
[2019-04-23 17:59] VITALS: Ht 165.1 cm; Wt 63.6 kg
[2019-04-24] MEDS ORDERED: ULTRAM50 MG PO (00:58)
[2019-04-24 01:02] VITALS: BP 147/85
== END 2019-04-24 01:02 | disposition home or self-care (01) ==
LOC: D.ER 17:40
DX: M25.511 Pain in right shoulder (principal); I10 Essential (primary) hypertension; Z72.0 Tobacco use; W19.XXXA Unspecified fall, initial encounter; Y93.9 Activity, unspecified; Y92.9 Unspecified place or not applicable

== ENCOUNTER 2019-04-25 18:45 | Emergency (ER) | payer MEDICARE ==
[~2019-04-25] VITALS: Ht 165.1 cm; Wt 65.9 kg
[~2019-04-25 18:45] MED LIST changes: +ULTRAM50 MG PO
[2019-04-25 18:56] VITALS: Ht 165.1 cm; Wt 65.9 kg
[2019-04-25 19:38] LABS: BASOPHILS 0.4 % (0-2); EOSINOPHILS 3.4 % (0-7); HEMATOCRIT 31.3 % (42.0-54.0); HEMOGLOBIN 10.8 g/dL (13.5-17.5); IMMATURE GRANULOCYTES 0.1 % (0-5); LYMPHOCYTES 37.4 % (15-50); MCH 32.2 pg (26.0-34.0); MCHC 34.5 g/dL (31.0-37.0); MCV 93.4 fL (80.0-100.0); MONOCYTES 6.9 % (2-11); NEUTROPHILS 51.8 % (40-80); PLATELET COUNT 281 10x3/uL (130-400); RBC 3.35 10x6/uL (4.20-6.10); RDW 13.9 % (11.5-14.5); WBC 7.4 10x3/uL (4.8-10.8)
[2019-04-25 19:43] LABS: CALCIUM 8.5 mg/dL (8.5-10.1); CARBON DIOXIDE 22.8 mmol/L (21.0-32.0); CREATININE - SERUM 1.2 mg/dL (0.6-1.3); POTASSIUM - SERUM 3.8 mmol/L (3.5-5.1)
[2019-04-25 19:49] LABS: ALBUMIN 3.3 g/dL (3.4-5.0); BILIRUBIN - TOTAL 0.36 mg/dL (0.2-1.3); MAGNESIUM - SERUM 1.2 mg/dL (1.8-2.4); PROTEIN - SERUM 7.5 g/dL (6.4-8.2)
[2019-04-25 20:04] LABS: APPEARANCE CLEAR (CLEAR); BILIRUBIN NEGATIVE (NEGATIVE); COLOR YELLOW (YELLOW); GLUCOSE NEGATIVE (NEGATIVE); KETONE NEGATIVE (NEGATIVE); NITRITE NEGATIVE (NEGATIVE); PROTEIN NEGATIVE (NEGATIVE); UROBILINOGEN NORMAL (NORMAL)
[2019-04-25 20:12] LABS: UDS - AMPHET NEGATIVE QUAL (NEGATIVE); UDS - BARB NEGATIVE QUAL (NEGATIVE); UDS - BENZO NEGATIVE QUAL (NEGATIVE); UDS - COCAINE NEGATIVE QUAL (NEGATIVE); UDS - OPIATE NEGATIVE QUAL (NEGATIVE); UDS - PCP NEGATIVE QUAL (NEGATIVE); UDS - THC NEGATIVE QUAL (NEGATIVE)
--- NOTE | 2019-04-26 05:09 | NUR ---
DR HERNANDEZ NOTIFIED AND REVIEWED PT's BEHAVIOR AND ASSESSMENT RESULTS. PT IS A LOW RISK PER DR HERNANDEZ. DR HERNANDEZ STATED TO GIVE RESOURCES TO PT AT TIME OF DISCHARGE. NO FURTHER ORDERS AT THIS TIME. RESOURCES REVIEWED WITH PT AND HE VERBALIZED UNDERSTANDING.
[2019-04-26 06:58] VITALS: BP 160/82
== END 2019-04-26 06:59 | disposition home or self-care (01) ==
LOC: D.ER 18:45
PROVIDERS: Family Medicine
DX: R45.850 Homicidal ideations (principal); F10.129 Alcohol abuse with intoxication, unspecified; Y90.8 Blood alcohol level of 240 mg/100 ml or more; E83.42 Hypomagnesemia; I10 Essential (primary) hypertension; Z72.0 Tobacco use

== ENCOUNTER 2019-04-30 18:13 | Inpatient (IN) | payer MEDICARE ==
[~2019-04-30] VITALS: Ht 165.1 cm; Wt 57.6 kg
--- NOTE | ~2019-04-30 | HEMODYNAMI ---
PATIENT:CONNIE LYON MEDICAL RECORD: [id number] : 63 LOCATION:[facility] D.2118 [facility]# [id number] ADMISSION DATE: 05/01/19 Generatedon:05/02/201910:37 Patient name: CONNIE LYON Patient #: [id number] SSN: DO B: 1965 Date of study: 05/02/2019 Page: Of Hemodynamic Procedure Report Patient Data Patient Demographics Procedure consent was obtained First Name: CONNIE Gender: Male Last Name: CAMRON : 1965 Middle Initial: YAZAN Age: 53 year(s) Patient #: [id number] Race: Unknown Additional ID: [id number] Contact details [address]: [address] [place] [address] State: [place] City: [place] Zip code: [address] Admission Admission Data Admission Date: 05/01/2019 Admission Time: 14:50 Arrival Date: 05/02/2019 Arrival Time: 14:50 Admit Source: Other Insurance Payor: Medicare, Room #: D.2118 Medicaid HIC #: [id number] Height (in.): 65 BSA: 1.59 (m2) Height (cm.): 165.1 BMI: 19.8 (kg/m2) Weight (lbs.): 119 Weight (kg.): 53.98 Lab Results Lab Result Date: 05/02/2019 Lab Result Time: 0:00 Biochemistry Name Units Result Min Max BUN mg/dl 30 --(----)-* 7 18 Creatinine mg/dl 2 --(----)-* 0.6 1.3 CBC Name Units Result Min Max Hemoglobin g/dl 9.7 *-(----)-- 13.5 17.5 Procedure Procedure Types Cath Procedure Diagnostic Procedure [facility] w/Coronaries Sedation Charges Moderate Sedation up to 15 minutes Procedure Description Procedure Date Procedure Date: 05/02/2019 Procedure Start Time: 10:26 Procedure End Time: 10:34 Procedure Staff Name Function Reginald Blackwood MD Performing Physician Lisa Gregory RT Monitor Alley Wu RT Scrub Tsering Huggins RN Nurse Procedure Data Cath Procedure Fluoroscopy Diagnostic fluoroscopy Total fluoroscopy Time: 1.1 time: 1.1 min min Diagnostic fluoroscopy Total fluoroscopy dose: 215 dose: 215 mGy mGy Contrast Material Contrast Material Type Amount (ml) Isovue 300 35 Entry Location Entry Primary Successful Side Size Upsize Upsize Entry Closure Ward ccessful Closure Location (Fr) 1 (Fr) 2 (Fr) Remarks Device Remarks Radial Right 6 Fr Mechanical artery Short Compression Estimated blood loss: 5 ml Diagnostic catheters Device Type Used For End Catheter Placement DIAGNOSTIC [place] 110cm 5 Multi-vessel Fr catheter ([id number]) Angiography Procedure Complications No complications Procedure Medications Medication Administration Route Dosage 0.9% NaCl I.V. 100 ml/hr Oxygen etCO2 Nasal cannula 2 l/min Lidocaine 2% added to field 20 Heparin Flush Bag added to field 2 bags (1000units/500ml NS) Radial Cocktail added to field 1 syringe (Verapamil 2mg/Nitro 400mcg/Heparin 1500units) Versed I.V. 2 mg Fentanyl I.V. 50 mcg Versed I.V. 1 mg Fentanyl I.V. 50 mcg Hemodynamics Rest BSA: 1.59 (m2) HGB: 9.7 (g/dl) O2 Consumption: Estimated: 178.66 (ml/min) O2 Con sumption indexed: Estimated:112.36 (ml/min/m) Heart Rate: 53 (bpm) Pressure Samples Time Site Value (mmHg) Purpose Heart Use Rate(bpm) 10:29 LV 55/16,22 Snapshot 72 Snapshots Pre Cath Intra NCS Post Cath Vital Signs Time Heart Resp SPO2 etCO2 NIBP (mmHg) Rhythm Pain Sedation Rate (ipm) (%) (mmHg) Status Level (bpm) 10:08:07 57 21 100 39.2 Measuring SB 0 (11) 10(A) , No pain 10:08:15 57 22 100 38.5 154/92(130) SB 0 (11) 10(A) , No pain 10:12:31 54 26 100 39.2 162/93(123) SB 0 (11) 10(A) , No pain 10:16:49 56 19 100 20.4 119/71(88) SB 0 (11) 10(A) , No pain 10:20:53 64 17 98 31.7 111/84(106) NSR 0 (11) 10(A) , No pain 10:25:01 69 15 97 0 86/68(82) NSR 0 (11) 10(A) , No pain 10:29:01 92 10 98 0 93/60(89) NSR 0 (11) 10(A) , No pain 10:33:00 67 4 92 0 84/69(79) NSR 0 (11) 10(A) , No pain Medications Time Medication Route Dose Verified Delivered Reason Notes E ffectiveness by by 10:06:24 0.9% NaCl I.V. 100 Reginald Tsering used for ml/hr Merced Huggins senior sharepoint developer 10:06:32 Oxygen etCO2 2 l/min Reginald Tsering used for Nasal Merced Huggins procedure cannula RN 10:06:36 Lidocaine 2% added 20ml Reginald Reginald for local to vial Merced Blackwood MD anesthetic field 10:06:40 Heparin Flush added 2 bags Reginaldgeovani Montelongo used for Bag to Merced Blackwood MD procedure (1000units/500ml field NS) 10:06:46 Radial Cocktail added 1 Reginald Reginald used for (Verapamil to syringe Merced Blackwood MD procedure 2mg/Nitro field 400mcg/Heparin 1500units) 10:21:16 Versed I.V. 2 mg Reginald Tsering for Merced Huggins sedation RN 10:21:21 Fentanyl I.V. 50 mcg Reginald Tsering for Merced Huggins sedation RN 10:28:36 Versed I.V. 1 mg Reginald Tsering for Merced Huggins sedation RN 10:28:41 Fentanyl I.V. 50 mcg Reginald Tsering for Merced Huggins sedation entertainment production professional Log Time Note 9:25:27 Diagnostic Cath Status : Urgent 9:26:48 Lab Result : Hemoglobin 9.7 g/dl 9:26:48 Lab Result : Creatinine 2 mg/dl 9:26:48 Lab Result : BUN 30 mg/dl 9:28:45 Admit Source: Other 9:28:50 Arrival Date: 05/02/2019 2:50:00 PM 9:29:54 Insurance Payor : Medicare, Medicaid 9:30:14 Patient Weight : 119 lbs 9:30:18 Patient Height : 65 inches 9:30:42 Tsering Huggins RN sent for patient. Start room use. 9:30:43 Time tracking: Regular hours (M-F 7:00 - 5:00) 9:30:48 Plan of Care:Hemodynamics will remain stable., Cardiac rhythm will remain stable., Comfort level will be maintained., Respiratory function will remain adequate., Patient/ family verbilizes understanding of procedure., Procedure tolerated without complication., Recovers from procedure without complications.. 9:33:49 Risk of Mortality: 3.5 9:33:55 Risk of blood transfusion: 35.8 9:34:01 Risk of DENAE: 19.1 9:34:12 3b) 30-44 Moderately reduced kidney function. 9:34:35 Maximum allowable contrast dose (3.7 X eGFR X 0.75)102 ml. 10:03:42 Patient received from Med II to CCL 2 Alert and oriented. Tansferred to table in Supine position. 10:03:44 Signed procedure consent form obtained from patient. 10:03:45 Warm blankets applied, and nubia hugger turned on for patient comfort. 10:03:46 Correct patient and procedure confirmed by team. 10:03:46 ECG and BP/O2 sat monitors applied to patient. 10:06:17 Vital chart was started 10:06:24 0.9% NaCl 100 ml/hr I.V. was administered by Tsering Huggins RN; used for procedure; Verbal order read back and verified. 10:06:32 Oxygen 2 l/min etCO2 Nasal cannula was administered by Tsering Huggins RN; used for procedure; Verbal order read back and verified. 10:06:36 Lidocaine 2% 20ml vial added to field was administered by Reginald Blackwood MD; for local anesthetic; Verbal order read back and verified. 10:06:40 Heparin Flush Bag (1000units/500ml NS) 2 bags added to field was administered by Reginald Blackwood MD; used for procedure; Verbal order read back and verified. 10:06:46 Radial Cocktail (Verapamil 2mg/Nitro 400mcg/Heparin 1500units) 1 syringe added to field was administered by Reginald Blackwood MD; used for procedure; Verbal order read back and verified. 10:07:37 Pt meds given to CL RN by floor nurse ISAIAH Strange. Meds given in CL by UMANG Cagle. See MAR for med list. 10:10:58 Baseline sample Acquired. 10:11:04 Rhythm: sinus rhythm 10:11:06 Full Disclosure recording started 10:11:22 H&P Date Dictated: 05/02/2019 New H&P dictated by physician.. 10:11:24 Pre-procedure instructions explained to patient. 10:11:24 Pre-op teaching completed and patient verbalized understanding. 10:11:27 Family unavailable. 10:11:28 Patient NPO since Midnight. 10:11:31 Is the patient allergic to Iodine/contrast media? No. 10:11:33 Was the patient premedicated? Yes 10:11:34 Is patient on blood thinner?Yes 10:11:37 ACC The patient was administered the following blood thiners within the last 24 hours: ACCPlavix 10:11:40 Patient diabetic? No. 10:11:44 Previous problem with sedation/anesthesia? No ? 10:11:54 Snore? Yes 10:11:55 Sleep apnea? No 10:11:55 Deviated septum? No 10:11:56 Opens mouth fully? Yes 10:11:57 Sticks out tongue? Yes 10:12:08 Airway obstruction? Yes COPD 10:12:17 Dentures? No ? 10:12:48 Pre procedure: right dorsailis pedis pulse 2+ Normal; easily identifiable; not easily obliterated 10:12:50 Pre procedure: left dorsailis pedis pulse 2+ Normal; easily identifiable; not easily obliterated 10:12:52 Patient pain scale 0/10 ?. 10:12:58 IV patent on arrival in right forearm with 0.9% NaCl at [facility]. 10:13:00 Lab results completed and on chart. 10:13:06 Right Radial & Right Groin area was prepped with chlora-prep and draped in sterile fashion 10:13:07 Alarms reviewed by R. N. 10:13:08 Sharps counted by scrub and verified by R.N. 10:17:46 Zero performed for pressure channel P1 10:19:35 Physician arrived 10:19:36 --------ALL STOP TIME OUT------ 10:19:36 Final Timeout: patient, procedure, and site verified with staff and physician. All members of the team are in agreement. 10:19:48 Right Radial & Right Groin site verified by team. 10:19:51 Fire Safety Assessment: A--An alcohol-based skin anteseptic being used preoperatively., C--Open oxygen or nitrous oxide is being used., D--An ESU, laser, or fiber-optic light is being used. 10:19:56 Physical assessment completed. ASA score P 2 - A patient with mild systemic disease as per Reginald Blackwood MD. 10:19:59 Sedation plan: IV Moderate Sedation Medication:Versed, Fentanyl 10:20:09 Use device set Radial Dx or PCI 10:20:10 ACIST Syringe (84929) opened to sterile field. 10:20:10 Medline Cath Pack (YQCA32264) opened to sterile field. 10:20:11 Bag Decanter (2002S) opened to sterile field. 10:20:11 ACIST Hand Control (22280) opened to sterile field. 10:20:12 ACIST Manifold (96650) opened to sterile field. 10:20:12 Tegaderm 4 x 4 (1626W) opened to sterile field. 10:20:13 MBrace Wrist Support (212139433) opened to sterile field. 10:20:15 EMERALD Guide Wire (284-525) opened to sterile field. 10:20:16 SHEATH 6FR RAIN (8586924) opened to sterile field. 10:20:20 Zero performed for pressure channel P1 10:20:28 Zero performed for pressure channel P1 10:20:41 Zero performed for pressure channel P1 10:20:48 Zero performed for pressure channel P1 10:21:16 Versed 2 mg I.V. was administered by Tsering Huggins RN; for sedation; Verbal order read back and verified. 10:21:21 Fentanyl 50 mcg I.V. was administered by Tsering Huggins RN; for sedation; Verbal order read back and verified. 10:26:10 Procedure started. 10:26:16 Local anesthetic to right radial artery with Lidocaine 2% by Reginald Blackwood MD.INITIAL ACCESS ONLY 10:26:24 A 6 Fr Short sheath was inserted into the Right Radial artery 10:27:48 A DIAGNOSTIC [place] 110cm 5 Fr catheter (908321) was advanced over the wire and used for Multi-vessel Angiography. 10:28:36 Versed 1 mg I.V. was administered by Tsering Huggins RN; for sedation; Verbal order read back and verified. 10:28:41 Fentanyl 50 mcg I.V. was administered by Tsering Huggins RN; for sedation; Verbal order read back and verified. 10:29:30 LV hemodynamics recorded. 10:29:31 LV gram done using VELEZ 10::33 Injector settings: Ml/sec: 5, Volume: 15, 10:29:39 EF : 60 % 10:30:54 LCA angiography performed. 10:31:01 Injector settings: Ml/sec: 3, Volume: 6, 10:31:06 RCA angiography performed. 10:31:09 ACCDominant side:Co-Dominant 10::09 Injector settings: Ml/sec: 3, Volume: 6, 10:31:13 Catheter removed. 10:31:35 ZEPHYR REGULAR TR BAND (941024) opened to sterile field. 10:31:45 Sheath removed intact; hemostasis achieved with Mechanical Compression to the Right Radial artery. 10:31:47 Procedure ended.(Physican Out) 10:32:34 Fluoroscopy time 01.10 minutes. 10:32:37 Fluoroscopy dose: 215 mGy 10:32:37 Flurop Dose total: 215 10:32:44 Dose Area Product 76357 mGy/cm. 10:32:47 Contrast amount:Isovue 300 35ml. 10:32:49 Maximum allowable dose exceeded? No. 10:32:50 Sharps counted by scrub and verified by R.N. 10:32:53 [place] band inflated with 8cc of air. 10:32:55 Insertion/operative site no bleeding no hematoma. 10:32:59 Post right radial artery:stable 10:33:01 Post Procedure Pulses reassessed and unchanged 10:33:04 Post procedure rhythm: unchanged. 10:33:08 Estimated blood loss: 5 ml 10:33:15 Post procedure instruction explained to patient.Patient verbalizes understanding. 10:33:16 Patient needs reinforcement of post procedure teaching. 10:33:39 Procedure type changed to Cath procedure, Diagnostic procedure, LHC, LHC w/Coronaries, Sedation Charges, Moderate Sedation up to 15 minutes 10:33:40 Procedure and supply charges have been captured, reviewed, submitted and are correct. 10:33:44 Procedure Complication : No complications 10:34:21 Vital chart was stopped 10:34:23 [facility] Findings: mild to moderate CAD (<70%) 10:34:24 Operative report dictated upon procedure completion. 10:34:25 See physician's report for complete and final results. 10:34:28 Report given to [facility]. 10:34:30 Patient transfered to [facility] with Stretcher. 10:34:33 Procedure ended. 10:34:33 Full Disclosure recording stopped 10:34:43 End room use (Document Last) Device Usage Item Name Manufacture Quantity Catalog Hospital Part Current Minima l Lot# / Number Charge Number Stock Stock Serial# Code ACIST Acist 1 [id number] 667004 [id number] [id number] 20 Syringe Medical (55370) Systems Inc Medline Medline 1 [id number] 271268 47467 488177 5 Cath Pack ([id number]) Bag Microtek 1 2001S 851114 56307 507358 5 Decanter Medical Inc. () ACIST Hand Acist 1 70562 426607 127649 505312 5 Control Medical (00695) Systems Inc ACIST Acist 1 91689 633777 221642 206190 5 Manifold Medical (30931) Systems Inc Tegaderm 4 3M 1 1626W 173126 903537 054066 5 x 4 (1626W) MBrace Advanced 1 140-0250-00 714099 04185 445988 5 Wrist Vascular Support Dynamics ([id number]) EMERALD Cardinal 1 502-455 040701 433774 566977 5 Guide Wire Health (502455) SHEATH 6FR Cardinal 1 6521367 367939 8956197 507385 5 [facility] (8538086) DIAGNOSTIC Terumo 1 40-5013 183021 364601 013208 5 [place] 110cm 5 Fr catheter (022125) ZEPHYR Cardinal 1 634564 513514 8501337 638510 5 REGULAR TR Health BAND (515603) Signature Audit [place] Stage Time Signature Unsigned Intra-Procedure 05/02/2019 Lisa Gregory 10:35:57 AM RT(R) Intra-Procedure 05/02/2019 Tsering Huggins 10:36:31 AM RN Intra-Procedure 05/02/2019 Reginald Blackwood 10:37:16 AM Signatures Performing Physician : Signature : Reginald Blackwood MD Date : Time : Monitor : Lisa Colt RT Signature : Date : Time : Nurse : Tsering Joseluis RN Signature : Date : Time : [address] [place] [address]
--- NOTE | ~2019-04-30 | EC ---
PATIENT:CONNIE LYON DATE OF SERVICE: 05/01/19 SEX: M MEDICAL RECORD: [id number] DATE OF : 63 LOCATION:D. D.211 AGE OF PATIENT: 53 ADMISSION DATE: 05/01/19 REFERRING PHYSICIAN: INTERPRETING PHYSICIAN: EWELINA BLACKWOOD MD ECHOCARDIOGRAM REPORT ECHO CHARGES 4 ECHO COMPLETE Date: 05/02/19 CLINICAL DIAGNOSIS: NM ECHOCARDIOGRAPHIC MEASUREMENTS (adult normal given) AC root (d.<3.7cm) 3.0 cm LV Septum d (<1.2 cm> 1.2 cm Valve Excursion 1.9 cm LV Septum (systole) 1.7 cm Left Atria (s.<4.0cm> 3.4 cm LVPW d(<1.2cm) 1.3 cm RV (d.<2.3cm) 3.0 cm LVPW (sytole) 1.9 cm LV diastole(<5.6CM) 5.0 cm MV E-F(>70mm/sec) cm LV systole 2.7 cm LVOT Diameter 1.9 cm MV exc.(>10mm) cm Est.ejection fraction (50-75%) % DOPPLER: LVIT cm/sec A 38.0 cm/sec E 79.0 cm/sec LA cm/sec RVSP 29.0 mmHg LVOT 111 cm/sec AOP1/2T m/s Asc. Ao 105 cm/sec RVOT 53.0 cm/sec RA cm/sec PA 94.0 cm/sec AV Gradient Peak 4.4 mmHg AV Mean 1.9 mmHg AV Area 3.0 cm MV Gradient Peak 2.3 mmHg MV Mean 0.76 mmHg MV Area cm COMMENTS: Railroad Signal Technician: 1 ERNIE CROWELLOE Circulation Representative: 1 Dr. Blackwood TAPE# PACS Pericardial Effusion N DATE OF SERVICE: ECHOCARDIOGRAM FINDINGS: 1. Left ventricular chamber size is within normal limits. Left ventricular systolic function is normal. Overall ejection fraction estimated at 55%. 2. Left atrium, right atrium, and right ventricular chamber sizes are within normal limits. 3. Valvular structures have normal structure and motion. ECHOCARDIOGRAM REPORT [id number] CONNIE LYON 4. Doppler interrogation reveals trace mitral regurgitation, mild tricuspid regurgitation, no other valvular insufficiency or stenosis. Pulmonary systolic pressure estimated at 29 mmHg. 5. No evidence of pericardial effusion or left ventricular thrombus. TRANSINT:[id number] Voice Confirmation ID: [id number] DOCUMENT ID: [id number] EWELINA BLACKWOOD MD CC: [id number] DICTATION DATE: 05/03/19 1310 POWDER PRESS OPERATOR: 05/03/19 1340 ADM IN [facility] [address] [place] [id number]
--- NOTE | 2019-04-30 18:33 | NUR ---
TRAUMA BAND [id number]
--- NOTE | 2019-04-30 18:36 | NUR ---
CLEAN CATCH URINE COLLECTED AND TO LAB.
--- NOTE | 2019-04-30 18:53 | NUR ---
ERP AWARE PT DOES NOT HAVE AN IV AT THIS TIME.
[2019-04-30 19:13] LABS: APPEARANCE CLEAR (CLEAR); BILIRUBIN NEGATIVE (NEGATIVE); COLOR YELLOW (YELLOW); GLUCOSE NEGATIVE (NEGATIVE); KETONE NEGATIVE (NEGATIVE); NITRITE NEGATIVE (NEGATIVE); PROTEIN TRACE mg/dL (NEGATIVE); UROBILINOGEN NORMAL (NORMAL)
[2019-04-30 19:14] LABS: AMORPHOUS SEDIMENT >1+ /lpf (NONE SEEN); BACTERIA MODERATE /hpf (NEGATIVE); EPITHELIAL CELLS 0-5 /hpf (0-5); MUCUS >1+ /lpf (NONE SEEN); RED CELLS - URINE 0-5 /hpf (0-5); WHITE CELLS - URINE 25-50 /hpf (NEGATIVE)
[2019-04-30 19:20] LABS: UDS - AMPHET NEGATIVE QUAL (NEGATIVE); UDS - BARB NEGATIVE QUAL (NEGATIVE); UDS - BENZO POSITIVE QUAL (NEGATIVE); UDS - COCAINE NEGATIVE QUAL (NEGATIVE); UDS - OPIATE NEGATIVE QUAL (NEGATIVE); UDS - PCP NEGATIVE QUAL (NEGATIVE); UDS - THC NEGATIVE QUAL (NEGATIVE)
[2019-04-30] MEDS ORDERED: CIPRO500 MG PO (19:58)
[2019-04-30 20:24] LABS: BASOPHILS 0.7 % (0-2); EOSINOPHILS 1.1 % (0-7); HEMATOCRIT 32.3 % (42.0-54.0); HEMOGLOBIN 10.9 g/dL (13.5-17.5); LYMPHOCYTES 40.6 % (15-50); MCH 31.8 pg (26.0-34.0); MCHC 33.7 g/dL (31.0-37.0); MCV 94.2 fL (80.0-100.0); MEAN PLATELET VOLUME 8.9 fL (7.4-10.4); MONOCYTES 8.7 % (2-11); NEUTROPHILS 48.9 % (40-80); PLATELET COUNT 267 10x3/uL (130-400); RBC 3.43 10x6/uL (4.20-6.10); RDW 14.2 % (11.5-14.5); WBC 4.4 10x3/uL (4.8-10.8)
[2019-04-30 20:53] LABS: ALBUMIN 3.2 g/dL (3.4-5.0); ANION GAP 13.4 mmol/L (8-16); BILIRUBIN - TOTAL 0.33 mg/dL (0.2-1.3); CALCIUM 8.6 mg/dL (8.5-10.1); CREATININE - SERUM 1.5 mg/dL (0.6-1.3); MAGNESIUM - SERUM 1.5 mg/dL (1.8-2.4); POTASSIUM - SERUM 5.4 mmol/L (3.5-5.1); PROTEIN - SERUM 6.9 g/dL (6.4-8.2)
[2019-04-30 20:58] LABS: TROPONIN-I 0.124 ng/mL (0.000-0.060)
--- NOTE | 2019-05-01 00:41 | NUR ---
PATIENT TRANSFERRED FROM THE ER VIA WHEELCHAIR. PATIENT IS ALERT AND ORIENTED, RESPIRATIONS ARE EVEN AND UNLABORED. PATIENT HAS SLURRED SPEECH. PATIENT HAS A STRONG ODOR OF ETOH. ATTEMPTED TO COMPLETE PATIENT MED REC. PATIENT STATES THATS A B/P MED, A MEDICATION THAT IS 800 MG AND HIS INHALER. PATIENT UNABLE TO TELL ME THE NAMES OF HIS MEDICATION. PATIENT DID STATE HE HAS NOT TAKEN HIS MEDICATIONS IN A WHILE D/T THEM BEING STOLEN. PATIENT HAS NO S/S OF DISTRESS. NO C/O PAIN. CALL LIGHT WITHIN REACH. WILL CPOC.
[2019-05-01 00:50] VITALS: BP 115/65; BMI 19.8
[2019-05-01 02:38] LABS: BASOPHILS 0.2 % (0-2); EOSINOPHILS 1.6 % (0-7); HEMATOCRIT 29.9 % (42.0-54.0); HEMOGLOBIN 10.2 g/dL (13.5-17.5); LYMPHOCYTES 30.5 % (15-50); MCHC 34.1 g/dL (31.0-37.0); MCV 93.7 fL (80.0-100.0); MONOCYTES 13.5 % (2-11); NEUTROPHILS 54.2 % (40-80); PLATELET COUNT 262 10x3/uL (130-400); RBC 3.19 10x6/uL (4.20-6.10); RDW 14.3 % (11.5-14.5); WBC 4.4 10x3/uL (4.8-10.8)
[2019-05-01 02:53] LABS: APTT 28.3 SECONDS (22.8-39.4); INR 1.05 (0.85-1.17); PROTIME 13.2 SECONDS (11.6-15.0)
[2019-05-01 03:06] LABS: CALCIUM 8.4 mg/dL (8.5-10.1); CARBON DIOXIDE 22.3 mmol/L (21.0-32.0); CHLORIDE - SERUM 98 mmol/L (98-107); CKMB 2.2 U/L (0.0-3.6); CREATINE KINASE 54 UL (21-232); CREATININE - SERUM 1.6 mg/dL (0.6-1.3); GLUCOSE 102 mg/dL (74-106); MAGNESIUM - SERUM 1.6 mg/dL (1.8-2.4); PHOSPHOROUS 4.5 mg/dL (2.5-4.9); POTASSIUM - SERUM 4.6 mmol/L (3.5-5.1); PRO BNP 134 pg/mL (0-125); SODIUM 133 mmol/L (136-145); eGFR NON AFRICAN AMERICAN 48 mL/min (90-120)
[2019-05-01 03:08] LABS: CALC OSMOLALITY 269 mosm/kg (275-300); TROPONIN-I 0.106 ng/mL (0.000-0.060); UREA NITROGEN 23 mg/dL (7-18)
[2019-05-01 04:00] VITALS: BP 124/69
--- NOTE | 2019-05-01 07:25 | NUR ---
REPORT RECEIVED FROM SENIOR INTERNET SALES CONSULTANT AND PATIENT CARE ASSUMED. PATIENT LAYING IN BED AWAKE, ALERT AND ORIENTED X 4. PATIENT DENIES ANY NEEDS OR PAIN. WILL CONTINUE WITH PLAN OF CARE.SR UP X 2 BED IN LOW POSITION AND CALL LIGHT IN REACH.
[2019-05-01 08:00] VITALS: BP 174/92
[2019-05-01 09:00] LABS: CKMB 1.6 U/L (0.0-3.6); CREATINE KINASE 52 UL (21-232)
[2019-05-01 09:05] LABS: TROPONIN-I 0.093 ng/mL (0.000-0.060)
[2019-05-01 10:51] VITALS: Ht 165.1 cm; Wt 57.6 kg
[2019-05-01 12:17] VITALS: BP 175/95
--- NOTE | 2019-05-01 14:15 | NUR ---
DR LEVY AND RENÉ JOSEPH IN ROOM. PATIENT IS STABLE AND VSS. PATIENT DENIES ANY NEEDS OR PAIN. WILL CONTINUE TO MONITOR. SR UP X 2 BED IN LOW POSITION AND CALL LIGHT IN REACH.
[2019-05-01 15:27] LABS: CKMB 1.3 U/L (0.0-3.6); CREATINE KINASE 47 UL (21-232)
[2019-05-01 15:37] LABS: TROPONIN-I 0.099 ng/mL (0.000-0.060)
[2019-05-01 16:32] VITALS: BP 139/80
--- NOTE | 2019-05-01 18:10 | NUR ---
PATIENT IS UMCHANGED. VSS. PATIENT DENIES ANY NEEDS OR PAIN. WILL CONTINUE TO MONITOR. SR UP X 2 BED IN LOW POSITION AND CALL LIGHT IN REACH.
--- NOTE | 2019-05-01 19:17 | NUR ---
RECIEVED LAYING IN BED WITH EYES OPEN AND TV ON. ALERT AND ORIENTED X4. UP AD VELASQUEZ TO B/R. USES URINAL IN BED. TELEMETRY IN PLACE. DENIES ANY NEEDS AR PAIN AT THIS TIME.
[2019-05-01 20:00] VITALS: BP 149/72
[2019-05-02] VITALS: BP 128/75
[2019-05-02 04:00] VITALS: BP 124/76
[2019-05-02 05:55] LABS: ANION GAP 10.3 mmol/L (8-16); CALCIUM 8.3 mg/dL (8.5-10.1); CARBON DIOXIDE 28.2 mmol/L (21.0-32.0); MAGNESIUM - SERUM 1.4 mg/dL (1.8-2.4); PHOSPHOROUS 4.3 mg/dL (2.5-4.9); POTASSIUM - SERUM 4.5 mmol/L (3.5-5.1)
[2019-05-02 06:18] LABS: BASOPHILS 0.3 % (0-2); EOSINOPHILS 2.8 % (0-7); HEMATOCRIT 29.6 % (42.0-54.0); HEMOGLOBIN 9.7 g/dL (13.5-17.5); LYMPHOCYTES 48.4 % (15-50); MCH 31.7 pg (26.0-34.0); MCHC 32.8 g/dL (31.0-37.0); MEAN PLATELET VOLUME 9.7 fL (7.4-10.4); MONOCYTES 16.6 % (2-11); NEUTROPHILS 31.9 % (40-80); PLATELET COUNT 262 10x3/uL (130-400); RBC 3.06 10x6/uL (4.20-6.10); RDW 15.1 % (11.5-14.5)
[2019-05-02 06:23] LABS: MCV 96.8 fL (80.0-100.0)
--- NOTE | 2019-05-02 07:10 | NUR ---
REPORT RECEIVED FROM GRAVEL HAULER AND PATIENT CARE ASSUMED. PATIENT LAYING IN BED ON RT SIDE WITH EYES CLOSED AND BREATHING EVENLY. WILL CONTINUE WITH PLAN OF CARE. SR UP X 2 BED IN LOW POSITION AND CALL LIGHT IN REACH.
[2019-05-02 08:55] VITALS: BP 138/83
--- NOTE | 2019-05-02 09:45 | NUR ---
PHONE CALL RECEIVED FROM CLIENT EXPERIENCE SPECIALIST TEAM TO PRE OP PATIENT. PATIENT IS STABLE AND VSS. PATIENT DENIES ANY NEEDS OR PAIN. PATIENT PREOP PER MAR. PATIENT TOLERATED WELL. WILL CONTINUE TO MONITOR. SR UP X 2 BED IN LOW POSITION AND CALL LIGHT IN REACH.
--- NOTE | 2019-05-02 10:00 | NUR ---
PATIENT TO HOT METAL MIXER OPERATOR HELPER VIA HOSPITAL BED AND HOT METAL MIXER OPERATOR HELPER TEAM. PATIENT IS STABLE AND VSS. PATIENT DENIES ANY NEEDS OR PAIN.
--- NOTE | 2019-05-02 11:10 | NUR ---
PATIENT RETURNED FROM REFRIGERATION INSTALLER WITH CLEAN CATH. PATIENT HAS TR BAND TO RT WRIST. PATIENT LAYING ON BACK WITH EYES CLOSED AND BREATHING EVENLY. AROUSES EASILY TO VOICE. NO BLEEDING BRUISING OR HEMATOMA TO RT WRIST. PATIENT IS STABLE AND VSS. FREQUENT VITALS IN PLACE. WILL CONTINUE TO MONITOR. SR UP X 2 BED IN LOW POSITION AND CALL LIGHT IN REACH.
--- NOTE | 2019-05-02 11:48 | NUR ---
PATIENT IS STABLE AND VSS. PATIENT LAYING IN BED WITH EYES CLOSED AND BREATHING EVENLY. AROUSES EASILY TO VOICE. PATIENT IS STABLE AND VSS. NO BLEEDING BRUISING OR HEMATOMA NOTED TO RT WRIST. WILL CONTINUE TO MONITOR. SR UP X 2 BED IN LOW POSITION AND CALL LIGHT IN REACH.
[2019-05-02 13:48] VITALS: BP 101/73
--- NOTE | 2019-05-02 13:53 | NUR ---
PATIENT IS STABLE AND VSS. PATIENT DENIES ANY NEEDS OR PAIN. DRSG TO RT WRIST C/D/I. ALL AIR REMOVED FROM TR BAND. NO BLEEDING BRUISING OR HEMATOMA NOTED. PATIENT SITTING UP IN BED EATING LUNCH. WILL CONTINUE TO MONITOR. SR UP X 2 BED IN LOW POSITION AND CALL LIGHT IN REACH.
--- NOTE | 2019-05-02 15:22 | NUR ---
PATIENT SITTING UP IN BED WATCHING TV. NO SIGN OF BLEEDING BRUISING OR HEMATOMA TO RT WRIST. WRIST SPINT INTACT. GAVE PATIENT SODA REQUESTED. WILL CONTINUE TO MONITOR. SR UP X 2 BED IN LOW POSITION AND CALL LIGHT IN REACH.
--- NOTE | 2019-05-02 15:28 | CN ---
PATIENT NAME:CONNIE LYON MEDICAL RECORD: [id number] : 63 LOCATION:D. D.2118 ADMIT DATE: 05/01/19 ACCOUNT: [id number] CONSULTING PHYSICIAN: EWELINA GARIBAY MD REFERRING PHYSICIAN: MAIRA LEYV MD DATE OF CONSULTATION: 05/01/2019 DIAGNOSES: 1. Non-Q-wave myocardial infarction. 2. Coronary artery disease. 3. Shortness of breath, dyspnea on exertion. 4. Smoking history. 5. Hypertension. HISTORY OF PRESENT ILLNESS: Mr. Lyon presents with various complaints from a cardiac standpoint. He has not had a significant amount of chest pain. He states that the chest pain comes and goes, but he was not having any chest pain in the immediate past. He was more short of breath. This has been going on for 2 weeks. His shortness of breath has increased dramatically. His troponin is positive for a non-Q-wave myocardial infarction. He does not have a history of ischemic heart disease. He has a smoking history and a history of hypertension. He is on carvedilol. No other cardiac medications. He has continued to have the shortness of breath and dyspnea on exertion this morning. PHYSICAL EXAMINATION: CONSTITUTIONAL/GENERAL APPEARANCE: Well nourished, well developed, appears stated age. EYES: Lids and conjunctivae noninjected. No discharge. No pallor. ENT: Lips within normal limit. No cyanosis. No pallor. NECK: Carotid arteries, bilateral normal upstroke. No bruits. No thrills. No jugular venous pressure or distention. CERVICAL LYMPH NODES: Nontender. Nonenlarged. THYROID: Not enlarged. No nodules. CARDIOVASCULAR: Precordial exam, nondisplaced. No heaves or pericardial thrills. Rate and rhythm, regular. Heart sounds, normal S1, normal S2. No S3, no gallop, no rub. Systolic murmur, not heard. Diastolic murmur, not heard. RESPIRATORY: Respiratory effort, unlabored. Normal curvature. No thoracic deformity. No chest wall tenderness. Percussion, resonant. Auscultation, clear. No wheezes, no rales, no rhonchi. ABDOMEN: Soft, nondistended, nontender. No abdominal pain, no vomiting and normal appetite. MUSCULOSKELETAL: No joint tenderness, normal gait, normal tone. SKIN: Warm and dry. OVERALL IMPRESSION: Non-Q-wave myocardial infarction. We will get an echocardiogram today, start him on aspirin and Plavix. Plan for possible cardiac catheterization in the a.m. TRANSINT:[id number] Voice Confirmation ID: [id number] DOCUMENT ID: [id number] CONSULT REPORT [id number] CONNIE LYON JEFFREY MD at 1528 CC: [id number] DICTATION DATE: 05/01/19 1048 CHANNEL TURNER: 05/01/19 1057 ADM IN [facility] [address] [place] [address]
--- NOTE | 2019-05-02 15:28 | OP ---
PATIENT NAME: CONNIE LYON MEDICAL RECORD: [id number] :63 LOCATION:D.M2 D.2118 ADMISSION DATE:05/01/19 SURGEON: EWELINA GARIBAY MD DATE OF OPERATION: 05/02/2019 DATE OF SERVICE: 05/02/2019 PROCEDURES: 1. Left heart catheterization. 2. Selective coronary angiography. 3. Left ventriculogram. INDICATION: Elevated troponin compatible with non-Q-wave myocardial infarction. DESCRIPTION OF PROCEDURE IN DETAIL: After informed consent was obtained and after a detailed description of the risks, benefits as well as alternative therapies, the patient elected to proceed with angiogram and heart catheterization. The right radial area was prepped and draped in normal sterile fashion. Right radial artery was cannulated via modified Seldinger technique with placement of 5-German sheath. All catheters exchanged through this sheath. FINDINGS: Left ventriculogram was performed in standard 30-degree VELEZ view, reveals good cardiac wall motion, ejection fraction 65% to 70%. SELECTIVE CORONARY ANGIOGRAPHY: Left main, left anterior descending, left circumflex, right coronary artery are all smooth-walled vessels with no angiographic evidence of coronary artery disease. OVERALL IMPRESSION: 1. No angiographic evidence of coronary artery disease. 2. Normal left heart pressures. 3. Normal left ventricular systolic function. Elevated troponin is not secondary to hemodynamically significant coronary artery disease. Continue medical management of cardiac risk factors. TRANSINT:[id number] Voice Confirmation ID: [id number] DOCUMENT ID: [id number] EWELINA GARIBAY MD at 1528 CC: [id number] DICTATION DATE: 05/02/19 1035 PROCESS STRIPPER: 05/02/19 1137 ADM IN [facility] [address] [id number]
--- NOTE | 2019-05-02 15:36 | MORECARE ---
CASE MANAGEMENT DISCHARGE SUMMARY PATIENT: CONNIE LYON UNIT: [id number] ADM DATE: 05/01/19 AGE: 53 : 63 SEX: M ROOM/BED: D.2118 AUTHOR: GODWIN CARCAMO PHYSICIAN: REFERRING PHYSICIAN: MAIRA LEVY MD DATE OF SERVICE: 05/02/19 Discharge Plan Patient Name: CONNIE LYON Facility: [facility]:[place] : 1965 Planned Disposition: Home or Self Care Anticipated Discharge Date: Discharge Date: Expected LOS: Initial Reviewer: [email or web address] Initial Review Date: 05/02/2019 Generated: 05/02/19 4:35 pm Comments DCP- Discharge Planning Updated by [id number]: Marly Caraballo on 05/02/19 2:[address] Patient Name: CONNIE LYON Admission Status: ER Accout number: [id number] Admission Date: 05-01-2019 : 1965 Admission Diagnosis: Attending: GEORGE Current LOS: 1 Anticipated DC Date: Planned Disposition: Home or Self Care Primary Insurance: MEDICARE A & B Discharge Planning Comments: CM MET WITH PATIENT ABOUT DC PLANNING/NEEDS. STATES HOMELESS. HAS INFORMATION ON HOMELESS SHELTERS AND DRUG AND REHABS. STATES PLANS TO GET APPARTMENT WHEN HE IS DC'D FROM HERE. CM TO FOLLOW AND ASSIST. ANTICIPATE DC TODAY. Shoe Singer: Marly Caraballo DCPIA - Discharge Planning Initial Assessment Updated by [email or web address]: Marly Caraballo on 05/02/19 3:32 pm * Is the patient Alert and Oriented? Yes * PCP none * Pharmacy [facility] * Preadmission Environment Homeless * ADLs Independent * Additional services required to return to the preadmission environment? No * Can the patient safely return to the preadmission environment? Yes * Has this patient been hospitalized within the prior 30 days at any hospital? Yes Coverage Notice Reviewer: [id number] Jaquelin Cruz Notice Issued Date-Time: 05/01/2019 14:10 Notice Type: Medicare Outpatient Observation Notice Notice Delivered To: Patient Relationship to Patient: Enterprise Resource Planner Name: Delivery Method: HAND - Hand Delivered Lashanda Days: Prior Verbal Notification: Recipient Understood Notice: Yes Recipient Signature: Yes Med Rec Note Co-signed by Attending: Coverage Notice Comment: Patient Name: CONNIE LYON Page [phone] at 1536 All edits/amendments must be made on the electronic document DICTATION DATE: 05/02/191534 CAPACITY PLANNING MANAGER: SALOMON 05/02/191534 RPT#: [id number] DC DATE: STATUS: ADM IN [facility] [address] [place] [address] END OF REPORT
[2019-05-02 16:42] VITALS: BP 111/66
--- NOTE | 2019-05-02 19:24 | NUR ---
RECIEVED LAYING IN BED WITH EYES CLOSED. EASILY AROUSES WITH VERBAL STIMULI. REMOVED BRACE FROM RIGHT FA. BANDAIDE TO RIGHT WRIST SURGICAL SITE CDI. IV TO LEFT FA WITH NS AT 75CC/HR. TELEMETRY IN PLACE. ORIENTED X4. DENIES ANY NEEDS AT THIS TIME.
[2019-05-02 20:00] VITALS: BP 116/80
[2019-05-03] VITALS: BP 139/66
[2019-05-03 04:30] VITALS: BP 147/80
[2019-05-03 05:06] LABS: BASOPHILS 0.4 % (0-2); EOSINOPHILS 5.4 % (0-7); HEMATOCRIT 30.2 % (42.0-54.0); HEMOGLOBIN 9.6 g/dL (13.5-17.5); LYMPHOCYTES 44.5 % (15-50); MCH 31.7 pg (26.0-34.0); MCHC 31.8 g/dL (31.0-37.0); MEAN PLATELET VOLUME 9.2 fL (7.4-10.4); MONOCYTES 13.5 % (2-11); NEUTROPHILS 36.2 % (40-80); PLATELET COUNT 237 10x3/uL (130-400); RBC 3.03 10x6/uL (4.20-6.10); RDW 15.2 % (11.5-14.5); WBC 4.5 10x3/uL (4.8-10.8)
[2019-05-03 05:11] LABS: MCV 99.7 fL (80.0-100.0)
[2019-05-03 05:32] LABS: ANION GAP 11.7 mmol/L (8-16); CALCIUM 8.6 mg/dL (8.5-10.1); CARBON DIOXIDE 26.2 mmol/L (21.0-32.0); CREATININE - SERUM 1.6 mg/dL (0.6-1.3); MAGNESIUM - SERUM 1.5 mg/dL (1.8-2.4); PHOSPHOROUS 3.9 mg/dL (2.5-4.9); POTASSIUM - SERUM 4.9 mmol/L (3.5-5.1)
--- NOTE | 2019-05-03 07:15 | NUR ---
RECEIVED PT IN BED EYES CLOSED RESP UNLABORED SKIN W/D NAD NOTED
[2019-05-03 09:23] VITALS: BP 148/89
[2019-05-03 13:25] VITALS: BP 142/84
[2019-05-03 16:26] VITALS: BP 154/74
[2019-05-03] MEDS ORDERED: MACROBID100 MG PO (17:17)
--- NOTE | 2019-05-04 10:06 | MORECARE ---
CASE MANAGEMENT DISCHARGE SUMMARY PATIENT: CONNIE LYON UNIT: [id number] ADM DATE: 05/01/19 AGE: 53 : 63 SEX: M ROOM/BED: D.1918 AUTHOR: GODWIN CARCAMO PHYSICIAN: REFERRING PHYSICIAN: MAIRA LEVY MD DATE OF SERVICE: 05/04/19 Discharge Plan Patient Name: CONNIE LYON Facility: [facility]:[place] : 1965 Planned Disposition: Home or Self Care Anticipated Discharge Date: Discharge Date: 05/03/2019 Expected LOS: Initial Reviewer: [email or web address] Initial Review Date: 05/02/2019 Generated: 05/04/19 11:06 am Comments DCP- Discharge Planning Updated by [email or web address]: Marly Caraballo on 05/02/19 2:[address] Patient Name: CONNIE LYON Admission Status: ER Accout number: [id number] Admission Date: 05-01-2019 : 1965 Admission Diagnosis: Attending: GEORGE Current LOS: 1 Anticipated DC Date: Planned Disposition: Home or Self Care Primary Insurance: MEDICARE A & B Discharge Planning Comments: CM MET WITH PATIENT ABOUT DC PLANNING/NEEDS. STATES HOMELESS. HAS INFORMATION ON HOMELESS SHELTERS AND DRUG AND REHABS. STATES PLANS TO GET APPARTMENT WHEN HE IS DC'D FROM HERE. CM TO FOLLOW AND ASSIST. ANTICIPATE DC TODAY. Journeyman Sheet Metal Worker: Marly Caraballo DCPIA - Discharge Planning Initial Assessment Updated by [email or web address]: Marly Caraballo on 05/02/19 3:32 pm * Is the patient Alert and Oriented? Yes * PCP none * Pharmacy [facility] * Preadmission Environment Homeless * ADLs Independent * Additional services required to return to the preadmission environment? No * Can the patient safely return to the preadmission environment? Yes * Has this patient been hospitalized within the prior 30 days at any hospital? Yes Coverage Notice Reviewer: [email or web address] - Sherita Cruz Notice Issued Date-Time: 05/01/2019 14:10 Notice Type: Medicare Outpatient Observation Notice Notice Delivered To: Patient Relationship to Patient: Bindery Helper Name: Delivery Method: HAND - Hand Delivered Lashanda Days: Prior Verbal Notification: Recipient Understood Notice: Yes Recipient Signature: Yes Med Rec Note Co-signed by Attending: Coverage Notice Comment: Last DP export: 05/02/19 2:36 Patient Name: CONNIE LYON Page [phone] at 1006 All edits/amendments must be made on the electronic document DICTATION DATE: 05/04/19 1006 GRADE SCHOOL TEACHER: SALOMON 05/04/19 1006 RPT#: [id number] DC DATE:05/03/19 STATUS: DIS IN [facility] [address] [place] [address] END OF REPORT
== END 2019-05-03 20:00 | disposition home or self-care (01) | DRG 281 ==
LOC: D.ER 18:13 → OBSVTIME 22:05 → D.M2 22:05
PROVIDERS: Emergency Medicine; Family Medicine; Internal Medicine Interventional Cardiology; ADMIT Family Medicine; ATTEND Family Medicine
PROC: B2151ZZ Fluoroscopy of Left Heart using Low Osmolar Contrast (ICD-10-PCS; 2019-05-02)
PROC: 4A023N7 Measurement of Cardiac Sampling and Pressure, Left Heart, Percutaneous Approach (ICD-10-PCS; 2019-05-02)
PROC: B2111ZZ Fluoroscopy of Multiple Coronary Arteries using Low Osmolar Contrast (ICD-10-PCS; principal; 2019-05-02 09:30)
DX: I21.4 Non-ST elevation (NSTEMI) myocardial infarction (principal); N39.0 Urinary tract infection, site not specified; E87.1 Hypo-osmolality and hyponatremia; F17.213 Nicotine dependence, cigarettes, with withdrawal; F10.129 Alcohol abuse with intoxication, unspecified; Y90.6 Blood alcohol level of 120-199 mg/100 ml; E83.42 Hypomagnesemia; K21.9 Gastro-esophageal reflux disease without esophagitis; F41.8 Other specified anxiety disorders; F19.10 Other psychoactive substance abuse, uncomplicated

== ENCOUNTER 2019-05-08 17:47 | Emergency (ER) | payer MEDICARE ==
[~2019-05-08] VITALS: Ht 165.1 cm; Wt 68.2 kg
[~2019-05-08 17:47] MED LIST changes: +CIPRO500 MG PO; +MACROBID100 MG PO
[2019-05-08 17:52] VITALS: Ht 165.1 cm; Wt 68.2 kg
[2019-05-08 18:26] LABS: HEMATOCRIT 28.9 % (42.0-54.0); HEMOGLOBIN 9.9 g/dL (13.5-17.5); MCH 31.6 pg (26.0-34.0); MCHC 34.3 g/dL (31.0-37.0); MCV 92.3 fL (80.0-100.0); MEAN PLATELET VOLUME 8.5 fL (7.4-10.4); RBC 3.13 10x6/uL (4.20-6.10); RDW 14.5 % (11.5-14.5); WBC 2.9 10x3/uL (4.8-10.8)
[2019-05-08 18:28] LABS: PLATELET COUNT 295 10x3/uL (130-400)
[2019-05-08 18:38] LABS: CALC OSMOLALITY 256 mosm/kg (275-300); CALCIUM 8.3 mg/dL (8.5-10.1); CARBON DIOXIDE 25.9 mmol/L (21.0-32.0); CHLORIDE - SERUM 95 mmol/L (98-107); GLUCOSE 107 mg/dL (74-106); POTASSIUM - SERUM 4.2 mmol/L (3.5-5.1); SODIUM 128 mmol/L (136-145); UREA NITROGEN 12 mg/dL (7-18); eGFR NON AFRICAN AMERICAN 83 mL/min (90-120)
[2019-05-08 18:39] LABS: APTT 30.5 SECONDS (22.8-39.4); INR 0.98 (0.85-1.17); PROTIME 12.5 SECONDS (11.6-15.0)
[2019-05-08 18:54] LABS: EOSINOPHILS 4 % (0-7); LYMPHOCYTES 47 % (15-50); MONOCYTES 5 % (2-11); NEUTROPHILS 44 % (40-80); PLATELET ESTIMATE NORMAL
[2019-05-08 19:03] LABS: ALKALINE PHOSPHATASE 88 U/L (46-116); ALT (SGPT) 31 U/L (10-68); BILIRUBIN - TOTAL 0.17 mg/dL (0.2-1.3); CKMB 1.2 U/L (0.0-3.6); CREATINE KINASE 64 UL (21-232); MAGNESIUM - SERUM 1.4 mg/dL (1.8-2.4); PROTEIN - SERUM 6.7 g/dL (6.4-8.2); TROPONIN-I < 0.017 ng/mL (0.000-0.060)
[2019-05-08 19:23] LABS: APPEARANCE CLEAR (CLEAR); BILIRUBIN NEGATIVE (NEGATIVE); COLOR STRAW (YELLOW); GLUCOSE NEGATIVE (NEGATIVE); KETONE NEGATIVE (NEGATIVE); NITRITE NEGATIVE (NEGATIVE); PROTEIN NEGATIVE (NEGATIVE); SPECIFIC GRAVITY 1.005 (1.005-1.020); UROBILINOGEN NORMAL (NORMAL)
[2019-05-08 19:36] LABS: UDS - AMPHET NEGATIVE QUAL (NEGATIVE); UDS - BARB NEGATIVE QUAL (NEGATIVE)
[2019-05-08 19:37] LABS: UDS - BENZO POSITIVE QUAL (NEGATIVE); UDS - COCAINE NEGATIVE QUAL (NEGATIVE); UDS - OPIATE NEGATIVE QUAL (NEGATIVE); UDS - PCP NEGATIVE QUAL (NEGATIVE); UDS - THC NEGATIVE QUAL (NEGATIVE)
[2019-05-09 07:54] VITALS: BP 144/86
== END 2019-05-09 07:50 | disposition home or self-care (01) ==
LOC: D.ER 17:47
PROVIDERS: Family Medicine
DX: E87.1 Hypo-osmolality and hyponatremia (principal); F10.129 Alcohol abuse with intoxication, unspecified; Y90.8 Blood alcohol level of 240 mg/100 ml or more; D64.9 Anemia, unspecified; E83.51 Hypocalcemia; E83.42 Hypomagnesemia; I10 Essential (primary) hypertension

== ENCOUNTER 2019-05-09 11:56 | Emergency (ER) | payer MEDICARE ==
[~2019-05-09] VITALS: Ht 165.1 cm; Wt 63.6 kg
[2019-05-09 11:58] VITALS: Ht 165.1 cm; Wt 63.6 kg
[2019-05-09 12:47] LABS: BASOPHILS 0.7 % (0-2); EOSINOPHILS 1.4 % (0-7); HEMATOCRIT 30.7 % (42.0-54.0); HEMOGLOBIN 10.4 g/dL (13.5-17.5); IMMATURE GRANULOCYTES 0.2 % (0-5); LYMPHOCYTES 34.1 % (15-50); MCH 31.9 pg (26.0-34.0); MCHC 33.9 g/dL (31.0-37.0); MCV 94.2 fL (80.0-100.0); MEAN PLATELET VOLUME 9.1 fL (7.4-10.4); MONOCYTES 9.3 % (2-11); NEUTROPHILS 54.3 % (40-80); PLATELET COUNT 279 10x3/uL (130-400); RBC 3.26 10x6/uL (4.20-6.10); RDW 14.7 % (11.5-14.5)
[2019-05-09 12:48] LABS: WBC 4.2 10x3/uL (4.8-10.8)
[2019-05-09 12:56] LABS: APTT 29.8 SECONDS (22.8-39.4); INR 0.99 (0.85-1.17); PROTIME 12.6 SECONDS (11.6-15.0)
[2019-05-09 13:00] LABS: CALC OSMOLALITY 242 mosm/kg (275-300); CALCIUM 8.2 mg/dL (8.5-10.1); CARBON DIOXIDE 27.4 mmol/L (21.0-32.0); CHLORIDE - SERUM 94 mmol/L (98-107); CREATININE - SERUM 1.1 mg/dL (0.6-1.3); GLUCOSE 95 mg/dL (74-106); POTASSIUM - SERUM 4.5 mmol/L (3.5-5.1); SODIUM 121 mmol/L (136-145); UREA NITROGEN 10 mg/dL (7-18); eGFR NON AFRICAN AMERICAN 74 mL/min (90-120)
[2019-05-09 13:11] LABS: ALBUMIN 3.1 g/dL (3.4-5.0); ALKALINE PHOSPHATASE 79 U/L (46-116); ALT (SGPT) 33 U/L (10-68); BILIRUBIN - TOTAL 0.22 mg/dL (0.2-1.3); CKMB 0.9 U/L (0.0-3.6); CREATINE KINASE 66 UL (21-232); MAGNESIUM - SERUM 1.6 mg/dL (1.8-2.4); PROTEIN - SERUM 6.7 g/dL (6.4-8.2); THYROID STIMULATING HORMONE 1.12 uIU/mL (0.36-3.74); TROPONIN-I 0.019 ng/mL (0.000-0.060)
[2019-05-09 13:37] LABS: UDS - AMPHET NEGATIVE QUAL (NEGATIVE); UDS - BARB NEGATIVE QUAL (NEGATIVE); UDS - BENZO POSITIVE QUAL (NEGATIVE); UDS - COCAINE NEGATIVE QUAL (NEGATIVE); UDS - OPIATE NEGATIVE QUAL (NEGATIVE); UDS - PCP NEGATIVE QUAL (NEGATIVE); UDS - THC NEGATIVE QUAL (NEGATIVE)
[2019-05-09 13:54] LABS: APPEARANCE HAZY (CLEAR); BACTERIA FEW /hpf (NEGATIVE); BILIRUBIN NEGATIVE (NEGATIVE); COLOR YELLOW (YELLOW); EPITHELIAL CELLS 0-5 /hpf (0-5); GLUCOSE NEGATIVE (NEGATIVE); KETONE NEGATIVE (NEGATIVE); NITRITE NEGATIVE (NEGATIVE); PROTEIN NEGATIVE (NEGATIVE); RED CELLS - URINE RARE /hpf (0-5); UROBILINOGEN NORMAL (NORMAL); WHITE CELLS - URINE OCC /hpf (NEGATIVE)
[2019-05-09 14:03] LABS: CREATINE KINASE 69 UL (21-232)
[2019-05-09 14:04] LABS: TROPONIN-I < 0.017 ng/mL (0.000-0.060)
[2019-05-09 16:11] LABS: CALC OSMOLALITY 265 mosm/kg (275-300); CALCIUM 7.6 mg/dL (8.5-10.1); CARBON DIOXIDE 25.7 mmol/L (21.0-32.0); CHLORIDE - SERUM 100 mmol/L (98-107); CREATININE - SERUM 0.9 mg/dL (0.6-1.3); GLUCOSE 109 mg/dL (74-106); POTASSIUM - SERUM 4.5 mmol/L (3.5-5.1); SODIUM 133 mmol/L (136-145); UREA NITROGEN 9 mg/dL (7-18); eGFR NON AFRICAN AMERICAN > 90 mL/min (90-120)
[2019-05-09 16:17] LABS: ALBUMIN 2.9 g/dL (3.4-5.0); ALKALINE PHOSPHATASE 81 U/L (46-116); ALT (SGPT) 29 U/L (10-68); BILIRUBIN - TOTAL 0.31 mg/dL (0.2-1.3); PROTEIN - SERUM 6.5 g/dL (6.4-8.2)
[2019-05-10 01:46] VITALS: BP 114/61
== END 2019-05-10 01:46 | disposition home or self-care (01) ==
LOC: D.ER 11:56
PROVIDERS: Emergency Medicine
DX: E87.1 Hypo-osmolality and hyponatremia (principal); F10.129 Alcohol abuse with intoxication, unspecified; Y90.8 Blood alcohol level of 240 mg/100 ml or more; D64.9 Anemia, unspecified; E83.51 Hypocalcemia; E83.42 Hypomagnesemia; I10 Essential (primary) hypertension

== ENCOUNTER 2019-05-13 20:04 | Emergency (ER) | payer MEDICARE ==
[~2019-05-13] VITALS: Ht 165.1 cm; Wt 72.7 kg
[2019-05-13 20:07] VITALS: Ht 165.1 cm; Wt 72.7 kg
[2019-05-13 20:29] LABS: BASOPHILS 0.3 % (0-2); EOSINOPHILS 3.8 % (0-7); HEMATOCRIT 32.1 % (42.0-54.0); LYMPHOCYTES 48.2 % (15-50); MCH 32.1 pg (26.0-34.0); MCHC 34.3 g/dL (31.0-37.0); MCV 93.6 fL (80.0-100.0); MEAN PLATELET VOLUME 8.6 fL (7.4-10.4); MONOCYTES 11.3 % (2-11); NEUTROPHILS 36.4 % (40-80); PLATELET COUNT 306 10x3/uL (130-400); RBC 3.43 10x6/uL (4.20-6.10); RDW 14.2 % (11.5-14.5); WBC 5.8 10x3/uL (4.8-10.8)
[2019-05-13 20:38] LABS: CALC OSMOLALITY 252 mosm/kg (275-300); CALCIUM 8.3 mg/dL (8.5-10.1); CARBON DIOXIDE 27.7 mmol/L (21.0-32.0); CHLORIDE - SERUM 91 mmol/L (98-107); CREATININE - SERUM 1.3 mg/dL (0.6-1.3); GLUCOSE 97 mg/dL (74-106); POTASSIUM - SERUM 4.4 mmol/L (3.5-5.1); SODIUM 125 mmol/L (136-145); UREA NITROGEN 14 mg/dL (7-18); eGFR NON AFRICAN AMERICAN 61 mL/min (90-120)
[2019-05-13 20:49] LABS: ALBUMIN 3.3 g/dL (3.4-5.0); ALKALINE PHOSPHATASE 122 U/L (46-116); ALT (SGPT) 32 U/L (10-68); BILIRUBIN - TOTAL 0.22 mg/dL (0.2-1.3); CREATINE KINASE 165 UL (21-232); MAGNESIUM - SERUM 1.5 mg/dL (1.8-2.4); PROTEIN - SERUM 7.3 g/dL (6.4-8.2)
[2019-05-13 20:54] LABS: TROPONIN-I < 0.017 ng/mL (0.000-0.060)
[2019-05-13 21:53] LABS: APTT 30.2 SECONDS (22.8-39.4); INR 0.92 (0.85-1.17); PROTIME 12.2 SECONDS (11.6-15.0)
[2019-05-14 07:19] VITALS: BP 125/87
== END 2019-05-14 07:15 | disposition home or self-care (01) ==
LOC: D.ER 20:04
PROVIDERS: Family Medicine
DX: F10.10 Alcohol abuse, uncomplicated (principal); R07.89 Other chest pain; Y90.8 Blood alcohol level of 240 mg/100 ml or more; E87.8 Other disorders of electrolyte and fluid balance, not elsewhere classified; E87.1 Hypo-osmolality and hyponatremia; Z72.0 Tobacco use; I10 Essential (primary) hypertension

== ENCOUNTER 2019-05-15 18:07 | Emergency (ER) | payer MEDICARE ==
[~2019-05-15] VITALS: Ht 165.1 cm; Wt 68.2 kg
[2019-05-15 18:22] VITALS: Ht 165.1 cm; Wt 68.2 kg
[2019-05-15 18:43] LABS: BASOPHILS 0.4 % (0-2); EOSINOPHILS 4.1 % (0-7); HEMOGLOBIN 10.6 g/dL (13.5-17.5); IMMATURE GRANULOCYTES 0.2 % (0-5); LYMPHOCYTES 42.1 % (15-50); MCH 31.5 pg (26.0-34.0); MCHC 34.2 g/dL (31.0-37.0); MCV 92.3 fL (80.0-100.0); MEAN PLATELET VOLUME 8.6 fL (7.4-10.4); MONOCYTES 7.8 % (2-11); NEUTROPHILS 45.4 % (40-80); PLATELET COUNT 300 10x3/uL (130-400); RBC 3.36 10x6/uL (4.20-6.10); RDW 14.1 % (11.5-14.5); WBC 4.6 10x3/uL (4.8-10.8)
[2019-05-15 18:49] LABS: CALC OSMOLALITY 252 mosm/kg (275-300); CALCIUM 8.4 mg/dL (8.5-10.1); CARBON DIOXIDE 25.3 mmol/L (21.0-32.0); CHLORIDE - SERUM 92 mmol/L (98-107); CREATININE - SERUM 1.1 mg/dL (0.6-1.3); GLUCOSE 115 mg/dL (74-106); POTASSIUM - SERUM 4.5 mmol/L (3.5-5.1); SODIUM 126 mmol/L (136-145); UREA NITROGEN 11 mg/dL (7-18); eGFR NON AFRICAN AMERICAN 74 mL/min (90-120)
[2019-05-15 18:58] LABS: ALBUMIN 3.1 g/dL (3.4-5.0); ALKALINE PHOSPHATASE 103 U/L (46-116); ALT (SGPT) 30 U/L (10-68); AMYLASE - SERUM 69 U/L (25-115); BILIRUBIN - TOTAL 0.16 mg/dL (0.2-1.3); LIPASE 266 U/L (73-393)
[2019-05-15 19:00] LABS: TROPONIN-I < 0.017 ng/mL (0.000-0.060)
[2019-05-15 19:25] LABS: APPEARANCE CLEAR (CLEAR); COLOR STRAW (YELLOW)
[2019-05-15 19:26] LABS: BILIRUBIN NEGATIVE (NEGATIVE); GLUCOSE NEGATIVE (NEGATIVE); KETONE NEGATIVE (NEGATIVE); NITRITE NEGATIVE (NEGATIVE); PROTEIN TRACE mg/dL (NEGATIVE); SPECIFIC GRAVITY 1.005 (1.005-1.020); UROBILINOGEN NORMAL (NORMAL)
[2019-05-15 19:27] LABS: WHITE CELLS - URINE 0-5 /hpf (NEGATIVE)
[2019-05-15 19:28] LABS: BACTERIA FEW /hpf (NEGATIVE); RED CELLS - URINE RARE /hpf (0-5)
[2019-05-16 04:30] VITALS: BP 146/83
== END 2019-05-16 04:30 | disposition home or self-care (01) ==
LOC: D.ER 18:07
PROVIDERS: Family Medicine
DX: R10.13 Epigastric pain (principal); E87.1 Hypo-osmolality and hyponatremia; R11.2 Nausea with vomiting, unspecified; F10.929 Alcohol use, unspecified with intoxication, unspecified; Y90.8 Blood alcohol level of 240 mg/100 ml or more

== ENCOUNTER 2019-06-01 16:10 | Emergency (ER) | payer MEDICARE ==
[~2019-06-01] VITALS: Ht 165.1 cm; Wt 75.0 kg
[2019-06-01 16:29] VITALS: Ht 165.1 cm; Wt 75.0 kg
[2019-06-01 19:25] LABS: BASOPHILS 1.2 % (0-2); EOSINOPHILS 0.5 % (0-7); HEMATOCRIT 31.6 % (42.0-54.0); HEMOGLOBIN 10.7 g/dL (13.5-17.5); IMMATURE GRANULOCYTES 0.2 % (0-5); LYMPHOCYTES 21.9 % (15-50); MCH 31.4 pg (26.0-34.0); MCHC 33.9 g/dL (31.0-37.0); MCV 92.7 fL (80.0-100.0); MEAN PLATELET VOLUME 8.6 fL (7.4-10.4); MONOCYTES 12.3 % (2-11); NEUTROPHILS 63.9 % (40-80); PLATELET COUNT 392 10x3/uL (130-400); RBC 3.41 10x6/uL (4.20-6.10); RDW 14.6 % (11.5-14.5); WBC 6.4 10x3/uL (4.8-10.8)
[2019-06-01 19:37] LABS: ANION GAP 17.2 mmol/L (8-16); CARBON DIOXIDE 23.4 mmol/L (21.0-32.0); CREATININE - SERUM 2.4 mg/dL (0.6-1.3); POTASSIUM - SERUM 4.6 mmol/L (3.5-5.1)
[2019-06-01 19:43] LABS: ALBUMIN 3.8 g/dL (3.4-5.0); BILIRUBIN - TOTAL 0.31 mg/dL (0.2-1.3); PROTEIN - SERUM 7.6 g/dL (6.4-8.2)
[2019-06-01 20:41] LABS: UDS - AMPHET NEGATIVE QUAL (NEGATIVE); UDS - BARB NEGATIVE QUAL (NEGATIVE); UDS - BENZO POSITIVE QUAL (NEGATIVE); UDS - COCAINE NEGATIVE QUAL (NEGATIVE); UDS - OPIATE NEGATIVE QUAL (NEGATIVE); UDS - PCP NEGATIVE QUAL (NEGATIVE); UDS - THC NEGATIVE QUAL (NEGATIVE)
[2019-06-01 20:50] LABS: APPEARANCE CLEAR (CLEAR); BILIRUBIN NEGATIVE (NEGATIVE); COLOR YELLOW (YELLOW); GLUCOSE NEGATIVE (NEGATIVE); KETONE NEGATIVE (NEGATIVE); NITRITE NEGATIVE (NEGATIVE); PROTEIN 1+ mg/dL (NEGATIVE); UROBILINOGEN NORMAL (NORMAL)
[2019-06-01 20:52] LABS: EPITHELIAL CELLS 0-5 /hpf (0-5); RED CELLS - URINE 0-5 /hpf (0-5)
[2019-06-01 20:53] LABS: BACTERIA MODERATE /hpf (NEGATIVE)
[2019-06-01 23:34] VITALS: BP 123/78
== END 2019-06-01 23:34 | disposition home or self-care (01) ==
LOC: D.ER 16:10
PROVIDERS: Emergency Medicine
DX: M19.90 Unspecified osteoarthritis, unspecified site (principal); F10.11 Alcohol abuse, in remission; I10 Essential (primary) hypertension; Z72.0 Tobacco use

== ENCOUNTER 2019-06-21 12:29 | Emergency (ER) | payer MEDICARE ==
[2019-06-21 12:30] VITALS: Ht 165.1 cm
[2019-06-21 12:55] LABS: BASOPHILS 0.7 % (0-2); EOSINOPHILS 5.1 % (0-7); HEMOGLOBIN 10.3 g/dL (13.5-17.5); LYMPHOCYTES 31.5 % (15-50); MCH 30.6 pg (26.0-34.0); MCHC 33.2 g/dL (31.0-37.0); MONOCYTES 5.9 % (2-11); NEUTROPHILS 56.8 % (40-80); RBC 3.37 10x6/uL (4.20-6.10); RDW 14.5 % (11.5-14.5); WBC 6.1 10x3/uL (4.8-10.8)
[2019-06-21 13:00] LABS: PLATELET COUNT 307 10x3/uL (130-400)
[2019-06-21 13:04] LABS: APPEARANCE CLEAR (CLEAR); BILIRUBIN NEGATIVE (NEGATIVE); COLOR STRAW (YELLOW); GLUCOSE NEGATIVE (NEGATIVE); KETONE NEGATIVE (NEGATIVE); NITRITE NEGATIVE (NEGATIVE); PROTEIN NEGATIVE (NEGATIVE); SPECIFIC GRAVITY 1.005 (1.005-1.020); UROBILINOGEN NORMAL (NORMAL)
[2019-06-21 13:07] LABS: ANION GAP 14.2 mmol/L (8-16); CALCIUM 8.3 mg/dL (8.5-10.1); CARBON DIOXIDE 23.2 mmol/L (21.0-32.0); CREATININE - SERUM 1.7 mg/dL (0.6-1.3); POTASSIUM - SERUM 4.4 mmol/L (3.5-5.1)
[2019-06-21 13:10] LABS: BACTERIA FEW /hpf (NEGATIVE); EPITHELIAL CELLS NSEEN /hpf (0-5); RED CELLS - URINE NONE SEEN /hpf (0-5)
[2019-06-21 13:12] LABS: ALBUMIN 3.3 g/dL (3.4-5.0); BILIRUBIN - TOTAL 0.16 mg/dL (0.2-1.3); MAGNESIUM - SERUM 1.6 mg/dL (1.8-2.4); PROTEIN - SERUM 6.9 g/dL (6.4-8.2); UDS - AMPHET NEGATIVE QUAL (NEGATIVE); UDS - BARB NEGATIVE QUAL (NEGATIVE); UDS - BENZO NEGATIVE QUAL (NEGATIVE); UDS - COCAINE NEGATIVE QUAL (NEGATIVE); UDS - OPIATE NEGATIVE QUAL (NEGATIVE); UDS - PCP NEGATIVE QUAL (NEGATIVE); UDS - THC NEGATIVE QUAL (NEGATIVE)
--- NOTE | 2019-06-21 21:10 | NUR ---
DR HERNANDEZ NOTIFIED AND REVIEWED PT'S BEHAVIOR AND ASSESSMENT. PT IS A LOW RISK. RESOURCES GIVEN AND HE VERBALIZES UNDERSTANDING.
[2019-06-21 21:39] VITALS: BP 132/84
== END 2019-06-21 21:39 | disposition home or self-care (01) ==
LOC: D.ER 12:29
PROVIDERS: Family Medicine
DX: R45.851 Suicidal ideations (principal); S62.616A Displaced fracture of proximal phalanx of right little finger, initial encounter for closed fracture; F10.129 Alcohol abuse with intoxication, unspecified; Y90.7 Blood alcohol level of 200-239 mg/100 ml; I10 Essential (primary) hypertension; W22.8XXA Striking against or struck by other objects, initial encounter; Y93.9 Activity, unspecified; Y92.9 Unspecified place or not applicable

== ENCOUNTER 2019-06-23 12:56 | Emergency (ER) | payer MEDICARE ==
[~2019-06-23] VITALS: Ht 165.1 cm; Wt 69.1 kg
[2019-06-23 12:57] VITALS: Ht 165.1 cm; Wt 69.1 kg
[2019-06-23] MEDS ORDERED: SEROQUEL300 MG PO (13:00)
[2019-06-23] MEDS ORDERED: NEURONTIN800 MG PO (13:00)
[2019-06-23] MEDS ORDERED: TENORMIN50 MG PO (13:01)
[2019-06-23] MEDS ORDERED: BUSPAR10 MG PO (13:01)
[2019-06-23 13:49] LABS: UDS - AMPHET NEGATIVE QUAL (NEGATIVE); UDS - BARB NEGATIVE QUAL (NEGATIVE); UDS - BENZO NEGATIVE QUAL (NEGATIVE); UDS - COCAINE NEGATIVE QUAL (NEGATIVE); UDS - OPIATE NEGATIVE QUAL (NEGATIVE); UDS - PCP NEGATIVE QUAL (NEGATIVE); UDS - THC NEGATIVE QUAL (NEGATIVE)
[2019-06-23 13:54] LABS: BASOPHILS 0.5 % (0-2); EOSINOPHILS 6.1 % (0-7); HEMATOCRIT 32.3 % (42.0-54.0); HEMOGLOBIN 10.6 g/dL (13.5-17.5); LYMPHOCYTES 39.4 % (15-50); MCH 30.7 pg (26.0-34.0); MCHC 32.8 g/dL (31.0-37.0); MCV 93.6 fL (80.0-100.0); MEAN PLATELET VOLUME 8.6 fL (7.4-10.4); MONOCYTES 7.8 % (2-11); NEUTROPHILS 46.2 % (40-80); PLATELET COUNT 290 10x3/uL (130-400); RBC 3.45 10x6/uL (4.20-6.10); RDW 14.8 % (11.5-14.5); WBC 5.7 10x3/uL (4.8-10.8)
[2019-06-23 14:02] LABS: ANION GAP 14.4 mmol/L (8-16); CALCIUM 8.5 mg/dL (8.5-10.1); CARBON DIOXIDE 25.1 mmol/L (21.0-32.0); CREATININE - SERUM 1.5 mg/dL (0.6-1.3); POTASSIUM - SERUM 4.5 mmol/L (3.5-5.1)
[2019-06-23 14:07] LABS: ALBUMIN 3.4 g/dL (3.4-5.0); BILIRUBIN - TOTAL 0.12 mg/dL (0.2-1.3); MAGNESIUM - SERUM 1.5 mg/dL (1.8-2.4); PROTEIN - SERUM 7.3 g/dL (6.4-8.2)
[2019-06-23 14:20] LABS: APPEARANCE CLEAR (CLEAR); BACTERIA FEW /hpf (NEGATIVE); BILIRUBIN NEGATIVE (NEGATIVE); COLOR STRAW (YELLOW); EPITHELIAL CELLS RARE /hpf (0-5); GLUCOSE NEGATIVE (NEGATIVE); KETONE NEGATIVE (NEGATIVE); MUCUS <1+ /lpf (NONE SEEN); NITRITE NEGATIVE (NEGATIVE); PROTEIN NEGATIVE (NEGATIVE); RED CELLS - URINE NONE SEEN /hpf (0-5); UROBILINOGEN NORMAL (NORMAL)
--- NOTE | 2019-06-23 20:57 | NUR ---
DR HERNANDEZ NOTIFIED AND REVIEWED PT'S BEHAVIOR AND ASSESSMENT. PT IS A LOW RISK. RESOURCES GIVEN AND HE VERBALIZES UNDERSTANDING.
[2019-06-23 23:56] VITALS: BP 132/84
== END 2019-06-23 23:56 ==
LOC: D.ER 12:56
PROVIDERS: Family Medicine
DX: F10.121 Alcohol abuse with intoxication delirium (principal); R45.851 Suicidal ideations; I10 Essential (primary) hypertension